=== PATIENT | female | born 1930 | race Caucasian/White ===

== ENCOUNTER 2017-03-16 06:29 | Inpatient (IN) ==
[2017-03-16] MEDS ORDERED: Aspirin 81 MG TAB.CHEW PO ONE (06:38)
--- NOTE | 2017-03-16 06:41 | Emergency Department Note ---
Disposition Clinical Impression: Slurred speech Disposition: Still a Patient Condition: Fair Referrals: NO,PCP [Primary Care Provider] - Time of Disposition: 07:30 Neuro HPI - General Chief Complaint: ED Neuro Symptoms/Deficit Stated Complaint: possible stroke Time Seen by Provider: 03/16/17 06:38 Nursing Notes Reviewed: Yes Vital Signs Reviewed: Yes - History of Present Illness HPI Narrative: Ms. Pierce, an 86-year-old female, presents from home via EMS with concerns of slurred speech and generalized weakness. Patient lives at home with her son. Last known normal was between 10 and 10:30 PM last night. Patient awoke between 5:30 and 6 AM this morning to use the restroom and family was concerned about slurred speech. Patient also concerned about generalized weakness. Concerning history is atrial fibrillation not anticoagulated, antiplatelet of aspirin. Patient is not on anticoagulation as it previously caused her visual hallucinations. During my discussion, patient had slurring of speech without facial asymmetry. She answered all questions appropriately but stated she had difficulty speaking her words with no difficulty finding her words. - Related Data Home Medications: Home Medications Medication Instructions Recorded Confirmed Metoprolol XL (24 HR) Succ [Toprol 50 mg PO DAILY 02/05/16 03/11/17 Xl] Aspirin Enteric Coated [Aspirin EC] 81 mg PO DAILY 03/11/17 03/11/17 amLODIPine [Norvasc] 2.5 mg PO DAILY 03/11/17 03/11/17 Allergies/Adverse Reactions: Allergies Allergy/AdvReac Type Severity Reaction Status Date / Time rivaroxaban [From Xarelto] Allergy Hallucinati Verified 03/11/17 10:09 ng Tetanus Vaccines and Toxoid Allergy Hives Verified 03/11/17 10:09 [Tetanus Vaccines & Toxoid] alprazolam [From Xanax] AdvReac Hallucinati Verified 03/11/17 10:09 ng apixaban [From Eliquis] AdvReac Hallucinati Verified 03/11/17 10:09 ng codeine AdvReac Nausea Verified 03/11/17 10:09 All systems ED: reviewed and negative except as stated. Past Medical History - Past Medical History Medical history: Reports: hypertension, other Surgical history: Reports: breast surgery, herniorrhaphy, GLADIS/BSO, other Psychiatric history: Reports: anxiety, depression - Social History Smoking Status: Never smoker Smokeless Tobacco Status: No Alcohol use: Reports: none Drug use: Reports: none Physical Exam Vital Signs Reviewed General: Patient is alert, oriented, and in no acute distress. HEENT: No facial asymmetry. Head is normocephalic and atraumatic. PERRLA, EOMI. Nasal turbinates moist and pink. Posterior pharynx without exudates or cobblestoning. Trachea midline. Cardiovascular: Heart regular rate and irregular rhythm without clicks, rubs, gallops, or murmurs. No JVD. PMI nondisplaced. No pedal edema. No carotid bruit. Bilateral radial pulses symmetric and 2/4. Respiratory: Symmetric chest rise with good respiratory effort. Bilateral breath sounds are clear without wheezing, crackles, or rhonchi. Abdomen: Bowel sounds present normoactive x-4 quadrants. Abdomen is soft, nondistended, and nontender. No organomegaly noted. Musculoskeletal: Spontaneously moving all extremities. Muscle strength 5/5 and symmetric bilaterally in upper and lower extremities. No pronator drift. No extremity drift in upper or lower extremities. Neuro: Cranial nerves II through XII without deficit. Sensation light touch intact. Patient answers all questions properly. She does have very mild slurring speech. Psych: Patient's affect is appropriate for situation. Course Course Narrative: Patient presents with concerns of TIA versus CVA versus altered mental status. She is alert, oriented, GCS 15. Last known normal is 8-8.5 hours prior to presentation. She is not a TPA candidate. Her only neurologic symptom is mild to moderate slurring of speech. She is otherwise neurologically intact head to toe. NIHSS 1. A workup for altered mentation and stroke. We will not call stroke alert given timeframe of last known normal versus presentation. Patient signed out to the day team: Dr. Caruso, Dr. Dowell, Dr. Valle. Clinical concerns: TIA versus CVA versus altered mentation Pending studies: All lab work, EKG, CT head, chest x-ray Barriers to disposition: All studies are pending. Anticipated disposition: Admit to hospitalist with neurology consult for continued CVA evaluation. Vital Signs Temperature 98.5 F 03/16/17 06:31 Pulse Rate 65 03/16/17 06:31 Respiratory Rate 18 03/16/17 06:31 Blood Pressure 195/85 03/16/17 06:31 O2 Sat by Pulse Oximetry 97 03/16/17 06:31 Temperature 98.5 F 03/16/17 06:31 Pulse Rate 65 03/16/17 06:31 Respiratory Rate 18 03/16/17 06:31 Blood Pressure 195/85 03/16/17 06:31 O2 Sat by Pulse Oximetry 97 03/16/17 06:31 Oxygen Delivery Oxygen Delivery Room Air Neuro Symptoms/Deficit - Lab Data Lab Results 03/16/17 Range/Units 06:31 POC Glucose 116 H (58-89) NIH Stroke Scale - Level of Consciousness LOC: Alert - LOC Questions LOC Questions: Answers both correctly - LOC Commands LOC Commands: Performs both correctly - Best Gaze Best Gaze: Normal - Visual Visual: No visual loss - Facial Palsy Facial Palsy: Normal - Motor Arms Motor Arm-Left: No drift for 10 seconds Motor Arm-Right: No drift for 10 seconds - Motor Legs Motor Leg-Left: No drift for 5 seconds Motor Leg-Right: No drift for 5 seconds - Limb Ataxia Limb Ataxia: Normal, No Ataxia - Sensory Sensory: Normal - Best Language Best Language: No aphasia - Dysarthria Dysarthria: Mild, slurs some words - Extinction and Inattention Extinction and Inattention: Normal - NIHSS Total Score NIHSS Total Score: 1 TPA Checklist - Source Information Source: Patient - Eligibilty for IV tPA 1. LKW equal to or less than 4.5 hours be before treatment: No - LKW: 3-4.5 hrs Add. Warnings/Precautions Patient/family understanding: The patient/family members have been counseled and understood the risk, benefit , and alternatives of treatment. Attestation Statement - Attestation Attestation: I, Mario Villarreal, examined this patient and my medical decision-making was reviewed with the [employer]/PA/Advanced Practice Nurse/Resident Physician. I agree with the documented findings, disposition and treatment plan as described except to the extent set forth below. 86-year-old female presents with concerns of possible CVA. Family states the patient has slurred speech upon waking. Last time nonnormal greater than 8 hours prior to arrival in the emergency department. Patient is moving upper and lower extremities well without significant weakness. Patient is unable to give a history regarding her symptoms. Patient will be evaluated for altered mental status and possible CVA. Care will be transferred to the day physician, Dr. Caruso pending imaging and laboratory evaluation and disposition.
[2017-03-16 07:20] LABS: INR 1.6; Prothrombin Time 17.7 Seconds (9.4-12.1)
[2017-03-16 07:23] LABS: Activated Partial Thrombo Time 35.7 Seconds (26.0-36.0)
--- NOTE | 2017-03-16 07:39 | Emergency Department Note ---
Disposition Clinical Impression: Slurred speech, Troponin level elevated Altered mental status Qualifiers: Altered mental status type: disorientation Qualified Code(s): R41.0 - Disorientation, unspecified Disposition: Admitted As Inpatient Condition: Fair Referrals: NO,PCP [Non-Partnered Physician] - General Adult HPI - General Chief complaint: ED Neuro Symptoms/Deficit Stated complaint: possible stroke Time Seen by Provider: 03/16/17 06:38 Source: patient, EMS Limitations: no limitations Nursing Notes Reviewed: Yes Vital Signs Reviewed: Yes - History of Present Illness Pain Scale: 0 - Related Data Home Medications Medication Instructions Recorded Confirmed Metoprolol XL (24 HR) Succ [Toprol 50 mg PO DAILY 02/05/16 03/11/17 Xl] Aspirin Enteric Coated [Aspirin EC] 81 mg PO DAILY 03/11/17 03/11/17 amLODIPine [Norvasc] 2.5 mg PO DAILY 03/11/17 03/11/17 Allergies Allergy/AdvReac Type Severity Reaction Status Date / Time rivaroxaban [From Xarelto] Allergy Hallucinati Verified 03/11/17 10:09 ng Tetanus Vaccines and Toxoid Allergy Hives Verified 03/11/17 10:09 [Tetanus Vaccines & Toxoid] alprazolam [From Xanax] AdvReac Hallucinati Verified 03/11/17 10:09 ng apixaban [From Eliquis] AdvReac Hallucinati Verified 03/11/17 10:09 ng codeine AdvReac Nausea Verified 03/11/17 10:09 Past Medical History - Past Medical History Medical history: Reports: hypertension, other Surgical history: Reports: breast surgery, herniorrhaphy, GLADIS/BSO, other Psychiatric history: Reports: anxiety, depression - Social History Smoking Status: Never smoker Smokeless Tobacco Status: No Alcohol use: Reports: none Drug use: Reports: none Physical Exam - General Limitations: no limitations General appearance: alert, in no apparent distress Course Vital Signs Temperature 98.5 F 03/16/17 06:31 Pulse Rate 65 03/16/17 06:31 Respiratory Rate 18 03/16/17 06:31 Blood Pressure 195/85 03/16/17 06:31 O2 Sat by Pulse Oximetry 97 03/16/17 06:31 Temperature 98.5 F 03/16/17 06:31 Pulse Rate 65 03/16/17 07:51 Respiratory Rate 16 03/16/17 07:51 Blood Pressure 176/88 03/16/17 07:51 O2 Sat by Pulse Oximetry 95 03/16/17 07:51 Oxygen Delivery Oxygen Delivery Room Air Medical Decision Making - MDM Narrative Medical decision making narrative: I examined this patient and my medical decision-making was reviewed with the [employer]/PA/Advanced Practice Nurse/Resident Physician. I agree with the documented findings, disposition and treatment plan as described except to the extent set forth below. Patient was signed out by the evening ER physician Dr. Villarreal, patient was seen and evaluated this morning by Dr. Dowell and myself, I agree with his evaluation and management plan, supervise care the patient's stay. Patient comes in today having altered mental status upon awaking. Went to bed at 10 AM and felt fine. Uncertain when the symptoms actually started this morning. The family says her speech was slurred, but now is resolved. They think she is back to baseline at this time. 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 Patient has no focal neuro deficits this time. Waiting on lab work and CT scan and then disposition. She most likely will need admission. Chest X-Ray 03/16/17 06:39 IMPRESSION: 1. Interval appearance of mild pulmonary edema. 2. Bibasilar opacities may represent atelectasis versus aspiration. D/ / 03/16/2017 07:53:03 Vangie Han MD / [facility] Interpreting Provider: Vangie Han MD Head CT 03/16/17 06:39 IMPRESSION: No acute intracranial abnormality. D/ / Arvind Call MD / Arvind Call MD Interpreting Provider: Arvind Call MD 0858 hrs.: Patient's labs are back, but had to redraw her for subtle labs as they thought they were to be an air. Her troponin is positive. She has had no chest pain that she is aware of. Her mental status is at baseline. Her negative and bring her into the hospital. She did receive aspirin earlier today. Impressions acute mental status change, resolved, elevated troponin and rule out ACS. Patient's critical care time exclaim separately billable procedures is 30 minutes. 0904 hrs.: Repeat EKG shows atrial fibrillation, rate is 64, QRS is 84, QTC is 427, no signs of acute ischemia, compared to today's EKG and one from earlier this year which shows no acute changes. Patient's having no chest pain at this time. She does admit to having some indigestion over the past couple days. But denies chest pain. - Lab Data Result diagrams: 03/16/17 08:00 03/16/17 08:00 Lab Results 03/16/17 03/16/17 03/16/17 Range/Units 06:31 07:10 07:49 WBC (4.3-11.1) K/mcL RBC (3.82-4.97) M/mcL Hgb (11.5-15.4) g/dL Hct (35.3-44.9) % MCV (83.0-100.0) fL MCH (28.0-33.3) pg MCHC (31.6-35.5) g/dL RDW (11.5-14.5) % Plt Count (140-400) K/mcL MPV (9.4-12.4) fL Immature Gran % (0-4) % Seg Neutrophils % % Lymphocytes % % Monocytes % % Eosinophils % % Basophils % % Neutrophils # (1.6-8.9) K/mcL Lymphocytes # (0.6-4.6) K/mcL Monocytes # (0.0-1.3) K/mcL Eosinophils # (0.0-0.6) K/mcL Basophils # (0.0-0.2) K/mcL PT 17.7 H (9.4-12.1) Seconds INR 1.6 APTT 35.7 (26.0-36.0) Seconds Sodium (136-145) mEq/L Potassium (3.5-4.5) mEq/L Chloride (98-109) mEq/L Carbon Dioxide (19-29) mEq/L BUN (7-20) mg/dL Creatinine (0.57-1.11) mg/dL Est GFR ( Amer) (> 60) Est GFR (Non-Af Amer) (> 60) BUN/Creatinine Ratio (6-26) Glucose (70-99) mg/dL POC Glucose 116 H (58-89) Calculated Osmolality (280-300) Calcium (8.6-10.8) mg/dL Troponin I (0-0.03) ng/mL Urine Color Yellow (Yellow) Urine Clarity Clear (Clear) Urine pH 7.0 (5.0-8.0) pH Units Ur Specific [place] 1.011 (1.010-1.025) Urine Protein 100 H (Neg-Trace) mg/dL Urine Glucose (UA) Normal (Normal) mg/dL Urine Ketones Negative (Negative) mg/dL Urine Blood Large H (Negative) Urine Nitrite Negative (Negative) Urine Bilirubin Negative (Negative) Urine Urobilinogen Normal (Normal) mg/dL Ur Leukocyte Esterase Negative (Negative) Urine Microscopic RBC 50-100 H (0-3) per hpf Urine Microscopic WBC 0-3 (0-3) per hpf Ur Squamous Epith Cells Many H (None-Few) per lpf Urine Bacteria None Seen (None-Few) per hpf Hyaline Casts None Seen (None-Few) per lpf Ur Culture Indicated? NO (NO) 03/16/17 03/16/17 03/16/17 Range/Units 08:00 08:00 08:00 WBC 5.0 (4.3-11.1) K/mcL RBC 5.13 H (3.82-4.97) M/mcL Hgb 14.4 (11.5-15.4) g/dL Hct 43.0 (35.3-44.9) % MCV 83.8 (83.0-100.0) fL MCH 28.1 (28.0-33.3) pg MCHC 33.5 (31.6-35.5) g/dL RDW 13.4 (11.5-14.5) % Plt Count 90 L (140-400) K/mcL MPV 10.7 (9.4-12.4) fL Immature Gran % 0.6 (0-4) % Seg Neutrophils % 69.3 % Lymphocytes % 16.8 % Monocytes % 10.1 % Eosinophils % 2.4 % Basophils % 0.8 % Neutrophils # 3.5 (1.6-8.9) K/mcL Lymphocytes # 0.8 (0.6-4.6) K/mcL Monocytes # 0.5 (0.0-1.3) K/mcL Eosinophils # 0.1 (0.0-0.6) K/mcL Basophils # 0.0 (0.0-0.2) K/mcL PT (9.4-12.1) Seconds INR APTT (26.0-36.0) Seconds Sodium 131 L (136-145) mEq/L Potassium 4.4 (3.5-4.5) mEq/L Chloride 102 (98-109) mEq/L Carbon Dioxide 18 L (19-29) mEq/L BUN 14 (7-20) mg/dL Creatinine 0.68 (0.57-1.11) mg/dL Est GFR ( Amer) > 60 (> 60) Est GFR (Non-Af Amer) > 60 (> 60) BUN/Creatinine Ratio 21 (6-26) Glucose 118 H (70-99) mg/dL POC Glucose (58-89) Calculated Osmolality 274 L (280-300) Calcium 9.0 (8.6-10.8) mg/dL Troponin I 0.18 H* (0-0.03) ng/mL Urine Color (Yellow) Urine Clarity (Clear) Urine pH (5.0-8.0) pH Units Ur Specific [place] (1.010-1.025) Urine Protein (Neg-Trace) mg/dL Urine Glucose (UA) (Normal) mg/dL Urine Ketones (Negative) mg/dL Urine Blood (Negative) Urine Nitrite (Negative) Urine Bilirubin (Negative) Urine Urobilinogen (Normal) mg/dL Ur Leukocyte Esterase (Negative) Urine Microscopic RBC (0-3) per hpf Urine Microscopic WBC (0-3) per hpf Ur Squamous Epith Cells (None-Few) per lpf Urine Bacteria (None-Few) per hpf Hyaline Casts (None-Few) per lpf Ur Culture Indicated? (NO)
--- NOTE | 2017-03-16 07:41 | Emergency Department Note ---
Disposition Clinical Impression: Slurred speech, Troponin level elevated Altered mental status Qualifiers: Altered mental status type: disorientation Qualified Code(s): R41.0 - Disorientation, unspecified Disposition: Admitted As Inpatient Condition: Fair General Adult HPI - General Chief complaint: ED Neuro Symptoms/Deficit Stated complaint: possible stroke Time Seen by Provider: 03/16/17 06:38 Source: patient, EMS Limitations: no limitations Nursing Notes Reviewed: Yes Vital Signs Reviewed: Yes - History of Present Illness HPI Narrative: Patient was signed out to me from daytime physician Dr. Ryan and Dr. Villarreal. 86-year-old female history of atrial fibrillation, hypertension, lymphoma in remission presents to the ED for slurred speech and weakness. Patient lives with her son who reported that around 530 this morning when she awoke in she had difficulty in speech unable to get words out as well as generalized weakness. Her last well-known was last night 0. Daughters also in the room and reports the last time she had similar symptoms was when she was 1st diagnosed with lymphoma. She completed chemoradiation and just recently saw her oncologist Dr. Pittman this past Tuesday. At that time they stated her lab values suggested she may have lymphoma again. She denies any recent fevers, illness, cough, chest pain, shortness of breath, abdominal pain. Denies any recent falls or headache. Patient takes a baby aspirin for atrial fibrillation. Denies anticoagulant use. Denies any changes in her medications. Denies any urinary symptoms. Upon my evaluation her speech has improved in nearly resolved. Families in the room and confirm this. Her neurologic exam is otherwise unremarkable. 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 Her left pupil was round and reactive to light. Her extraocular muscles are intact when asked to look and all 4 cardinal directions. She is not displaying any dysmetria. Pain Scale: 0 - Related Data Home Medications Medication Instructions Recorded Confirmed Metoprolol XL (24 HR) Succ [Toprol 50 mg PO DAILY 02/05/16 03/16/17 Xl] Aspirin Enteric Coated [Aspirin EC] 81 mg PO DAILY 03/11/17 03/16/17 Lisinopril 2.5 mg PO DAILY 03/16/17 03/16/17 Allergies Allergy/AdvReac Type Severity Reaction Status Date / Time rivaroxaban [From Xarelto] Allergy Hallucinati Verified 03/11/17 10:09 ng Tetanus Vaccines and Toxoid Allergy Hives Verified 03/11/17 10:09 [Tetanus Vaccines & Toxoid] alprazolam [From Xanax] AdvReac Hallucinati Verified 03/11/17 10:09 ng apixaban [From Eliquis] AdvReac Hallucinati Verified 03/11/17 10:09 ng codeine AdvReac Nausea Verified 03/11/17 10:09 All systems ED: reviewed and negative except as stated. Constitutional: Reports: weakness. Denies: fever, chills Cardiovascular: Denies: chest pain Respiratory: Denies: cough, dyspnea Gastrointestinal: Denies: abdominal pain, nausea, vomiting Genitourinary: Denies: urgency, dysuria Musculoskeletal: Denies: back pain, neck pain Integumentary: Denies: rash, abrasion Neurological: Reports: weakness. Denies: headache Past Medical History - Past Medical History Attestation: Yes The following information was validated with the patient. Source: patient, obtained from family Medical history: Reports: hypertension, other Surgical history: Reports: breast surgery, herniorrhaphy, GLADIS/BSO, other Psychiatric history: Reports: anxiety, depression - Social History Smoking Status: Never smoker Smokeless Tobacco Status: No Alcohol use: Reports: none Drug use: Reports: none Physical Exam - General Limitations: no limitations General appearance: alert, in no apparent distress - Head Head exam: atraumatic, normocephalic, normal inspection - Eye Eye exam: Present: normal appearance, PERRL, EOMI (Lose in all 4 directions when asked), other (History of right eye blindness due to retinal damage) - Expanded Eye Exam Pupils: Left: regular, round, Right: irregular - ENT ENT exam: normal exam, normal oropharynx, mucous membranes moist - Neck Neck exam: Present: normal inspection, full ROM, trachea midline. Absent: tenderness - Expanded Neck Exam Neck exam focused ED: Absent: midline tenderness - Chest Chest inspection: Present: normal inspection, symmetric chest wall rise. Absent : tenderness - Respiratory Respiratory exam: Present: normal lung sounds bilaterally. Absent: respiratory distress, wheezes - Cardiovascular Cardiovascular exam: Present: normal rhythm, irregular rhythm, normal heart sounds - Abdominal Exam Abdominal exam: Present: soft, Non-Tender, normal bowel sounds. Absent: tenderness, distention, guarding, rebound, rigidity - Extremities Exam Extremities exam: Present: normal inspection, full ROM. Absent: tenderness, pedal edema - Neurological Exam Neurological exam: Present: alert, oriented X3, CN II-XII intact, other (did not perform finger to nose as she is blind in the right eye) - Expanded Neurological Exam Patient oriented to: Present: person, place, time Speech: Present: fluid speech Cranial nerves: EOM function (II, III, IV, ): Normal, facial sensation (V): Normal, facial palsy (VII): Normal, gag reflex (IX): Normal, spinal accessory function (XI): Normal, tongue deviation (XII): Normal Cerebellar function: heel to coleman: Normal Motor strength - LUE: 5/5 Motor strength - RUE: 5/5 Motor strength - LLE: 5/5 Motor strength - RLE: 5/5 Upper motor neuron exam: genevieve neglect: Absent bilaterally, pronator drift: Absent bilaterally Sensory exam upper extremity: light touch: Normal Sensory exam lower extremity: light touch: Normal - Psychiatric Psychiatric exam: Present: normal affect, normal mood - Skin Skin exam: Present: warm, dry, intact, normal color Course Course Narrative: These 6-year-old female presents for slurred speech and weakness. Initial concern was for possible stroke also being worked out for altered mental status. Patient is afebrile. Her blood pressure is elevated systolic 195. She has not taken her blood pressure medication this morning. She is denying any chest pain or shortness of breath at this time. Upon my evaluation patient / slurred speech has resolved as well as any weakness. Neurologic exam is unremarkable with no focal neural deficits. Family reports concern for recurrent lymphoma. EKG was performed showing atrial fibrillation with the slow ventricular response no acute ischemic changes. - Reevaluation(s) Reevaluation #1: Critical troponin 0.18. Patient denies chest pain. She reports indigestion and nausea over the past week. Patient was given 324 aspirin at 0659. Will get a repeat EKG. Patient will be admitted for elevated troponin and altered mental status. She does not have any underlying kidney disease. Creatinine is within normal limits 0.68. Time: 09:01 Reevaluation #2: Sodium is 131. It appears she has chronic hyponatremia and she has been as low as 126. White blood cell count is within normal limits. Urine does not appear consistent with infection. Review for checks x-ray shows bilateral patchy opacities concern for possible pulmonary edema. She continues to be mildly hypertensive. Will give her her home dose of antihypertensives as she has not taken any this morning. She has passed her swallow evaluation. Repeat of her EKG does not show any acute ischemic changes. Patient will be admitted to medicine for altered mental status and elevated troponin. Patient is in agreement with this plan. Time: 09:52 Reevaluation #3: BP 164/80 - Consultations Consultation #1: Spoke with on-call hospitalist mariia Infante to admit for AMS, elevated troponin. No further orders at this time Time: 09:51 Vital Signs Temperature 98.5 F 03/16/17 06:31 Pulse Rate 65 03/16/17 06:31 Respiratory Rate 18 03/16/17 06:31 Blood Pressure 195/85 03/16/17 06:31 O2 Sat by Pulse Oximetry 97 03/16/17 06:31 Temperature 97.5 F L 03/16/17 12:04 Pulse Rate 62 03/16/17 12:04 Respiratory Rate 14 03/16/17 12:04 Blood Pressure 164/80 03/16/17 12:04 O2 Sat by Pulse Oximetry 99 03/16/17 12:04 Oxygen Delivery Oxygen Delivery Nasal Cannula Medical Decision Making - Medical Records Medical records reviewed: Yes I reviewed the patient's medical records. - Lab Data Lab results reviewed: Yes I reviewed the patient's lab results. Result diagrams: 03/16/17 08:00 03/16/17 08:00 Lab Results 03/16/17 03/16/17 03/16/17 Range/Units 06:31 07:10 07:49 WBC (4.3-11.1) K/mcL RBC (3.82-4.97) M/mcL Hgb (11.5-15.4) g/dL Hct (35.3-44.9) % MCV (83.0-100.0) fL MCH (28.0-33.3) pg MCHC (31.6-35.5) g/dL RDW (11.5-14.5) % Plt Count (140-400) K/mcL MPV (9.4-12.4) fL Immature Gran % (0-4) % Seg Neutrophils % % Lymphocytes % % Monocytes % % Eosinophils % % Basophils % % Neutrophils # (1.6-8.9) K/mcL Lymphocytes # (0.6-4.6) K/mcL Monocytes # (0.0-1.3) K/mcL Eosinophils # (0.0-0.6) K/mcL Basophils # (0.0-0.2) K/mcL PT 17.7 H (9.4-12.1) Seconds INR 1.6 APTT 35.7 (26.0-36.0) Seconds Sodium (136-145) mEq/L Potassium (3.5-4.5) mEq/L Chloride (98-109) mEq/L Carbon Dioxide (19-29) mEq/L BUN (7-20) mg/dL Creatinine (0.57-1.11) mg/dL Est GFR ( Amer) (> 60) Est GFR (Non-Af Amer) (> 60) BUN/Creatinine Ratio (6-26) Glucose (70-99) mg/dL POC Glucose 116 H (58-89) Calculated Osmolality (280-300) Calcium (8.6-10.8) mg/dL Troponin I (0-0.03) ng/mL Urine Color Yellow (Yellow) Urine Clarity Clear (Clear) Urine pH 7.0 (5.0-8.0) pH Units Ur Specific Buhler 1.011 (1.010-1.025) Urine Protein 100 H (Neg-Trace) mg/dL Urine Glucose (UA) Normal (Normal) mg/dL Urine Ketones Negative (Negative) mg/dL Urine Blood Large H (Negative) Urine Nitrite Negative (Negative) Urine Bilirubin Negative (Negative) Urine Urobilinogen Normal (Normal) mg/dL Ur Leukocyte Esterase Negative (Negative) Urine Microscopic RBC 50-100 H (0-3) per hpf Urine Microscopic WBC 0-3 (0-3) per hpf Ur Squamous Epith Cells Many H (None-Few) per lpf Urine Bacteria None Seen (None-Few) per hpf Hyaline Casts None Seen (None-Few) per lpf Ur Culture Indicated? NO (NO) 03/16/17 03/16/17 03/16/17 Range/Units 08:00 08:00 08:00 WBC 5.0 (4.3-11.1) K/mcL RBC 5.13 H (3.82-4.97) M/mcL Hgb 14.4 (11.5-15.4) g/dL Hct 43.0 (35.3-44.9) % MCV 83.8 (83.0-100.0) fL MCH 28.1 (28.0-33.3) pg MCHC 33.5 (31.6-35.5) g/dL RDW 13.4 (11.5-14.5) % Plt Count 90 L (140-400) K/mcL MPV 10.7 (9.4-12.4) fL Immature Gran % 0.6 (0-4) % Seg Neutrophils % 69.3 % Lymphocytes % 16.8 % Monocytes % 10.1 % Eosinophils % 2.4 % Basophils % 0.8 % Neutrophils # 3.5 (1.6-8.9) K/mcL Lymphocytes # 0.8 (0.6-4.6) K/mcL Monocytes # 0.5 (0.0-1.3) K/mcL Eosinophils # 0.1 (0.0-0.6) K/mcL Basophils # 0.0 (0.0-0.2) K/mcL PT (9.4-12.1) Seconds INR APTT (26.0-36.0) Seconds Sodium 131 L (136-145) mEq/L Potassium 4.4 (3.5-4.5) mEq/L Chloride 102 (98-109) mEq/L Carbon Dioxide 18 L (19-29) mEq/L BUN 14 (7-20) mg/dL Creatinine 0.68 (0.57-1.11) mg/dL Est GFR ( Amer) > 60 (> 60) Est GFR (Non-Af Amer) > 60 (> 60) BUN/Creatinine Ratio 21 (6-26) Glucose 118 H (70-99) mg/dL POC Glucose (58-89) Calculated Osmolality 274 L (280-300) Calcium 9.0 (8.6-10.8) mg/dL Troponin I 0.18 H* (0-0.03) ng/mL Urine Color (Yellow) Urine Clarity (Clear) Urine pH (5.0-8.0) pH Units Ur Specific Buhler (1.010-1.025) Urine Protein (Neg-Trace) mg/dL Urine Glucose (UA) (Normal) mg/dL Urine Ketones (Negative) mg/dL Urine Blood (Negative) Urine Nitrite (Negative) Urine Bilirubin (Negative) Urine Urobilinogen (Normal) mg/dL Ur Leukocyte Esterase (Negative) Urine Microscopic RBC (0-3) per hpf Urine Microscopic WBC (0-3) per hpf Ur Squamous Epith Cells (None-Few) per lpf Urine Bacteria (None-Few) per hpf Hyaline Casts (None-Few) per lpf Ur Culture Indicated? (NO) - Radiology Data Radiology results reviewed: Yes I reviewed the patient's radiology results. Chest X-Ray 03/16/17 06:39 IMPRESSION: 1. Interval appearance of mild pulmonary edema. 2. Bibasilar opacities may represent atelectasis versus aspiration. D/ / 03/16/2017 07:53:03 Vangie Han MD / [facility] Interpreting Provider: Vangie Han MD Head CT 03/16/17 06:39 IMPRESSION: No acute intracranial abnormality. D/ / Arvind Call MD / Arvind Call MD Interpreting Provider: Arvind Call MD - EKG Data EKG #1 EKG attestation: Yes I reviewed and interpreted this EKG. EKG results narrative: EKG performed 637 atrial fibrillation with slow ventricular response 55 bpm QRS 78. Compared to old EKG performed 01/07/2017 reveals chronic atrial fibrillation. No acute ischemic changes.
[2017-03-16 08:05] LABS: Bilirubin,Urine Negative (Negative); Blood,Urine Large (Negative); Clarity,Urine Clear (Clear); Color,Urine Yellow (Yellow); Glucose,Urine (UA) Normal (Normal); Ketones,Urine Negative (Negative); Leukocyte Esterase,Urine Negative (Negative); Nitrite,Urine Negative (Negative); Protein,Urine 100 mg/dL (Neg-Trace); Specific Gravity,Urine 1.011 (1.010-1.025); Urobilinogen,Urine Normal (Normal)
[2017-03-16 08:06] LABS: Bacteria,Urine None Seen per hpf (None-Few); Hyaline Casts,Urine None Seen per lpf (None-Few); RBC,Urine 50-100 per hpf (0-3); Squamous Epithelial Cell,Urine Many per lpf (None-Few); WBC,Urine 0-3 per hpf (0-3)
[2017-03-16 08:32] LABS: Basophils % 0.8 %; Eosinophils # 0.1 K/mcL (0.0-0.6); Eosinophils % 2.4 %; Immature Granulocytes % 0.6 % (0-4); Lymphocytes # 0.8 K/mcL (0.6-4.6); Lymphocytes % 16.8 %; Mean Corpuscular HGB Conc 33.5 g/dL (31.6-35.5); Mean Corpuscular Hemoglobin 28.1 pg (28.0-33.3); Mean Corpuscular Volume 83.8 fL (83.0-100.0); Mean Platelet Volume 10.7 fL (9.4-12.4); Monocytes # 0.5 K/mcL (0.0-1.3); Monocytes % 10.1 %; Red Blood Count 5.13 M/mcL (3.82-4.97); Red Cell Distribution Width 13.4 % (11.5-14.5); Segmented Neutrophils % 69.3 %
[2017-03-16 08:33] LABS: Hemoglobin 14.4 g/dL (11.5-15.4); Neutrophils # 3.5 K/mcL (1.6-8.9); Platelet Count 90 K/mcL (140-400)
[2017-03-16 08:38] LABS: BUN/Creatinine Ratio 21 (6-26); Blood Urea Nitrogen 14 mg/dL (7-20); Carbon Dioxide 18 mEq/L (19-29); Chloride 102 mEq/L (98-109); Glucose 118 mg/dL (70-99); Osmolality,Calculated 274 (280-300); Potassium 4.4 mEq/L (3.5-4.5); Sodium 131 mEq/L (136-145); eGFR For African Americans > 60 (> 60); eGFR For Non-African Americans > 60 (> 60)
[2017-03-16] MEDS ORDERED: *HR* Heparin 5,000 UNIT/ML VIAL IVP ONE ×2 (11:19→12:25)
[2017-03-16] MEDS ORDERED: *HR* Heparin 5,000 UNIT/ML VIAL IVP PRN ×4 (11:19→12:25)
[2017-03-16] MEDS ORDERED: Naloxone 0.4 MG/ML INJ IVP PRN (11:24)
[2017-03-16] MEDS ORDERED: Acetaminophen 325 MG TABLET PO PRN (11:24)
[2017-03-16] MEDS ORDERED: Heparin 25,000 UNIT/500 ML D5W 25,000 UNIT/500 ML MLS IVC SCH ×2 (11:30→12:30)
--- NOTE | 2017-03-16 11:36 | Internal Med History&Physical ---
<Wilfrido Mcintosh Contreras - Last Filed: 03/16/17 13:03> Date of Encounter: 03/16/17 Internal Medicine - H&P: HPI History of present illness: Ms. Pierce is a 86 year old female Internal Medicine - H&P: Meds Metoprolol XL (24 HR) Succ [Toprol Xl] 50 mg PO DAILY 02/05/16 [History] Aspirin Enteric Coated [Aspirin EC] 81 mg PO DAILY 03/11/17 [History] Lisinopril 2.5 mg PO DAILY 03/16/17 [History] Allergies rivaroxaban [From Xarelto] Allergy (Verified 03/11/17 10:09) Hallucinating Tetanus Vaccines and Toxoid [Tetanus Vaccines & Toxoid] Allergy (Verified 10:09) Hives alprazolam [From Xanax] Adverse Reaction (Verified 03/11/17 10:09) Hallucinating apixaban [From Eliquis] Adverse Reaction (Verified 03/11/17 10:09) Hallucinating codeine Adverse Reaction (Verified 03/11/17 10:09) Nausea All Systems PM: A 10-system review of systems was performed and is negative for pertinent findings except as documented above in the HPI. - Constitutional Vitals: Temp Pulse Resp BP Pulse Ox 97.5 F L 62 14 164/80 99 03/16/17 12:04 03/16/17 12:04 03/16/17 12:04 03/16/17 12:04 03/16/17 12:04 Internal Med - H&P Results - Labs CBC & Chem 7: 03/16/17 08:00 03/16/17 08:00 - Attending Attestation I have independently seen and examined this patient and discussed plan of care with SOFTWARE QUALITY ASSURANCE ENGINEER Akshat 86 F, resident at home, with PMH of Afib, HTN, remote hx of B cell lymphoma in remission, was last seen well last night and this morning found with altered mental status, confusion, slurred speech. At time of review, family states her speech has not yet returned to normal. She also endorsed indigestion for a few days and nausea. No CP, no palpitations, no focal weakness, no trauma, no change in urinary habits. Physical exam VSS, Elderly fragile woman, not in any form of distress, chest is clear, HS S1, S2, only, no m/g/r, abdomen is benign, no pedal edema, no chest wall tenderness. Neuro exam, alert, oriented X3, dysarthric, R eye blind, no facial droop, moves all limbs equally Labs and imaging reviewed: EKG with Afib, RBBB, CXR unremarkable, and Head CT with no infarcts. Troponin 0.18, normal Chem, no hx of renal disease A/P Elevated troponin, suspected NSTEMI-Start heparin drip, obtain ECHO, trend troponin, continue ASA, BB, ACEi at home doses. Elevated troponin may be due to CVA, cardiology has been consulted, agree with plan Suspected Ischemic CVA-Obtain Brain MRI, agree with neurology eval Afib: CHADScore 4. Continue ASA, follow ECHO, and continue heparin Rest of chronic medical conditions are stable. Family is worried about recurrence of Lymphoma, recommend to address after current acute issues resolve Rest of details as in SOFTWARE QUALITY ASSURANCE ENGINEER [employer] documentation which I agree with <Aisha Oden - Last Filed: 03/16/17 22:11> Date of Encounter: 03/16/17 Time of Encounter: 11:34 Assessment and Plan (1) CVA (cerebral vascular accident) Current visit: Yes Status: Acute Patient presented with right sided weakness and numbness and slurred speech. Right sided weakness resolved and speech has improved, but not back to baseline per family. Suspect CVA vs. TIA. CT of head negative for acute abnormality. MRI of head and brain without contrast. carotid dopplers echocardiogram Consult to Neurology. Lipid panel with morning labs start atorvastatin. Qualifiers: CVA mechanism: embolism Precerebral and cerebral artery: middle cerebral artery Laterality of affected vessel: left Qualified Code(s): I63.412 - Cerebral infarction due to embolism of left middle cerebral artery (2) Slurred speech Current visit: Yes Status: Acute Patient presented with right sided weakness and numbness and slurred speech. Right sided weakness resolved and speech has improved, but not back to baseline per family. Suspect CVA vs. TIA. CT of head negative for acute abnormality. MRI of head and brain without contrast. carotid dopplers echocardiogram Consult to Neurology. (3) Troponin level elevated Current visit: Yes Status: Acute Troponin of 0.18. Patient denies chest pain or shortness of breath, but reports nausea and indigestion over the past week. Suspected NSTEMI. EKG shows afib with normal rate, no ST elevations or depressions. 324mg of aspirin given by ED. Cardiology consulted, Dr. Palmer said elevated troponin is possible in CVA/TIA and to hold off on heparin until we speak with Neurology. Spoke with Dr. Nance of Neurology, who said no contraindication to heparin if the CT of the head does not show a bleed. heparin drip. 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 Patient's family is concerned that her lymphoma has returned as this is similar to what happened the last time she was diagnosed. Patient had recent visit with her oncologist, Dr. Pittman, on 03/11 and due to elevated LDH and her symptoms of nausea at the time, ordered a CT of chest, abdomen and pelvis with IV and oral contrast to be completed this week. Consider completing this study while patient is inpatient once neuro and cardiology issues are stabilized. Qualifiers: Lymphoma site: multiple regions Qualified Code(s): C83.38 - Diffuse large B -cell lymphoma, lymph nodes of multiple sites (5) Atrial fibrillation Current visit: Yes Status: Chronic Patient has chronic atrial fibrillation. EKG shows Afib with normal rate. Patient takes metoprolol for rate control and aspirin, not on any anti- coagulation. Continue home doses of metoprolol and aspirin. Qualifiers: Atrial fibrillation type: chronic Qualified Code(s): I48.2 - Chronic atrial fibrillation (6) Pulmonary edema Current visit: Yes Status: Acute CXR shows interval appearance of mild pulmonary edema and bibasilar opacities which may represent atelectasis vs. aspiration. Patient denies cough, fever, shortness of breath. Titrate oxygen to maintain O2 saturation > 92%. Qualifiers: Chronicity: acute Qualified Code(s): J81.0 - Acute pulmonary edema (7) DVT prophylaxis Current visit: Yes Status: Acute anti-embolic stockings patient on heparin drip for suspected NSTEMI. Internal Medicine - H&P: HPI Chief complaint: right sided numbness and slurred speech Admitted From: Emergency Dept Plans for Post Hospital Care: Home History of present illness: Ms. Pierce is a 86 year old female with hypertension, atrial fibrillation, history large B-cell lymphoma in remission presents to the emergency room today with complaints of right-sided numbness and weakness and slurred speech. When patient woke this morning she reports her right arm felt numb her son said he had trouble getting her to walk and she was unable to speak, unable to get words out. She reports she was experiencing some nausea and indigestion as well as chills all last week, but had been feeling better the last few days. She denies any lightheadedness, dizziness, headache, chest pain, palpitations, shortness of breath. She denies any abdominal pain, diarrhea, fever, sweats. Evaluation in the ED was significant for elevated troponin of 0.18. CXR showed interval appearance of mild pulmonary edema and bibasilar opacities which may represent atelectasis versus aspiration. Head CT showed no acute intracranial abnormality. She has normal kidney function with creatinine of 0.68. She was mildly hyponatremic with sodium of 131. At the time of my assessment, her left sided weakness and numbness had resolved and her speech and nearly fully recovered, but according to her family did not sound as fluid as her baseline. She was alert and oriented, heart had irregular rhythm. Lungs with fine crackles in the bases. Patient is blind in right eye and pupil is non-reactive , but this is baseline. Cranial nerves intact, no pronator drift. Past Med Surg Social Fam HX - Past Medical History Medical history: atrial fibrillation, cancer (Large B-cell lymphoma, in remission), DVT, hypertension, other Psychiatric history: anxiety, depression - Past Surgical History Surgical History: breast surgery, herniorrhaphy, GLADIS/BSO, other - Social History Smoking Status: Never smoker Smokeless Tobacco Status: No Alcohol use: none Drug use: none - Family History Mother Hx Family Cardiac Disorders: Yes (pacemaker) Sister Hx Family Endocrine Disorder: Yes (diabetes) Brother Living Status: Hx Family Cardiac Disorders: Yes Father Living Status: Age at : 85 Cause of : CVA All Systems PM: A 10-system review of systems was performed and is negative for pertinent findings except as documented above in the HPI. - Constitutional Constitutional: chills, no fever(s), no night sweats - EENT Eyes: no change in vision, no discharge, no pain, no photophobia Ears: no ear discharge, no ear pain, no tinnitus Nose, mouth and throat: no dysphagia, no nasal discharge, no neck pain, no sore throat - Cardiovascular Cardiovascular ROS IM: no chest pain, no diaphoresis, no dyspnea, no lightheadedness, no palpitations, no syncope - Respiratory Respiratory: no cough, no dyspnea, no wheezing, no excessive phlegm production - Gastrointestinal Gastrointestinal: nausea, no abdominal pain, no diarrhea, no hematemesis, no hematochezia, no melena, no vomiting - Genitourinary Genitourinary: no change in urinary stream, no dysuria, no flank pain, no hematuria - Musculoskeletal Musculoskeletal ROS IM: numbness, no tingling - Integumentary Integumentary IM: no rash, no unusual bruising - Neurological Neurological ROS: abnormal speech, focal weakness (right side), numbness (right side), no confusion, no convulsions, no tingling, no tremor(s) - Hematologic/Lymphatic Hematologic/Lymphatic: no easy bruising - Constitutional Vitals: Temp Pulse Resp BP Pulse Ox 98.5 F 63 18 168/92 95 03/16/17 06:31 03/16/17 09:16 03/16/17 11:08 03/16/17 11:08 03/16/17 07:51 General appearance: Present: A&O X 3, pleasant, no acute distress - Head Head exam: Present: atraumatic, normocephalic - Eye Eye exam: Present: conjuntiva pink, sclera anicteric Additional comments: left pupil reactive. Right eye blindness and pupil not reactive. - Neck Neck exam general surgery: Present: supple, trachea midline. Absent: lymphadenopathy - Respiratory Respiratory exam: Present: CTAB. Absent: accessory muscle use, rales, rhonchi, wheezes - Cardiovascular Cardiovascular exam: Present: irregular rhythm, +S1, +S2. Absent: diastolic murmur, gallop, rubs, systolic murmur - GI/Abdominal GI/Abdominal exam: Present: normal bowel sounds, soft, no peritoneal signs. Absent: distended, tenderness - Extremities Exam Extremities exam: Present: warm, radial pulses palpable and symetrical. Absent : calf tenderness, cyanotic, pedal edema - Neurological Exam Neurological exam: Present: CN II-XII intact, oriented X3, no focal deficits, strengths equal and symetr throughout. Absent: pronater drift, facial droop - Expanded Neurological Exam Speech: Present: slurred (mildly slurred) Cranial Nerves: EOM's intact PM: Normal, nystagmus PM: Normal, tongue deviation PM: Normal Neuro motor strength exam: LUE: 4, RUE: 4, LLE: 4, RLE: 4 - Skin Skin exam: Present: dry, intact Internal Med - H&P Results - Labs CBC & Chem 7: 03/16/17 08:00 03/16/17 08:00 Labs: All Lab Results (24 Hours) 03/16/17 03/16/17 03/16/17 Range/Units 06:31 07:10 07:49 WBC (4.3-11.1) K/mcL RBC (3.82-4.97) M/mcL Hgb (11.5-15.4) g/dL Hct (35.3-44.9) % MCV (83.0-100.0) fL MCH (28.0-33.3) pg MCHC (31.6-35.5) g/dL RDW (11.5-14.5) % Plt Count (140-400) K/mcL MPV (9.4-12.4) fL Immature Gran % (0-4) % Seg Neutrophils % % Lymphocytes % % Monocytes % % Eosinophils % % Basophils % % Neutrophils # (1.6-8.9) K/mcL Lymphocytes # (0.6-4.6) K/mcL Monocytes # (0.0-1.3) K/mcL Eosinophils # (0.0-0.6) K/mcL Basophils # (0.0-0.2) K/mcL PT 17.7 H (9.4-12.1) Seconds INR 1.6 APTT 35.7 (26.0-36.0) Seconds Sodium (136-145) mEq/L Potassium (3.5-4.5) mEq/L Chloride (98-109) mEq/L Carbon Dioxide (19-29) mEq/L BUN (7-20) mg/dL Creatinine (0.57-1.11) mg/dL Est GFR ( Amer) (> 60) Est GFR (Non-Af Amer) (> 60) BUN/Creatinine Ratio (6-26) Glucose (70-99) mg/dL POC Glucose 116 H (58-89) Calculated Osmolality (280-300) Calcium (8.6-10.8) mg/dL Troponin I (0-0.03) ng/mL Urine Color Yellow (Yellow) Urine Clarity Clear (Clear) Urine pH 7.0 (5.0-8.0) pH Units Ur Specific [place] 1.011 (1.010-1.025) Urine Protein 100 H (Neg-Trace) mg/dL Urine Glucose (UA) Normal (Normal) mg/dL Urine Ketones Negative (Negative) mg/dL Urine Blood Large H (Negative) Urine Nitrite Negative (Negative) Urine Bilirubin Negative (Negative) Urine Urobilinogen Normal (Normal) mg/dL Ur Leukocyte Esterase Negative (Negative) Urine Microscopic RBC 50-100 H (0-3) per hpf Urine Microscopic WBC 0-3 (0-3) per hpf Ur Squamous Epith Cells Many H (None-Few) per lpf Urine Bacteria None Seen (None-Few) per hpf Hyaline Casts None Seen (None-Few) per lpf Ur Culture Indicated? NO (NO) 03/16/17 03/16/17 03/16/17 Range/Units 08:00 08:00 08:00 WBC 5.0 (4.3-11.1) K/mcL RBC 5.13 H (3.82-4.97) M/mcL Hgb 14.4 (11.5-15.4) g/dL Hct 43.0 (35.3-44.9) % MCV 83.8 (83.0-100.0) fL MCH 28.1 (28.0-33.3) pg MCHC 33.5 (31.6-35.5) g/dL RDW 13.4 (11.5-14.5) % Plt Count 90 L (140-400) K/mcL MPV 10.7 (9.4-12.4) fL Immature Gran % 0.6 (0-4) % Seg Neutrophils % 69.3 % Lymphocytes % 16.8 % Monocytes % 10.1 % Eosinophils % 2.4 % Basophils % 0.8 % Neutrophils # 3.5 (1.6-8.9) K/mcL Lymphocytes # 0.8 (0.6-4.6) K/mcL Monocytes # 0.5 (0.0-1.3) K/mcL Eosinophils # 0.1 (0.0-0.6) K/mcL Basophils # 0.0 (0.0-0.2) K/mcL PT (9.4-12.1) Seconds INR APTT (26.0-36.0) Seconds Sodium 131 L (136-145) mEq/L Potassium 4.4 (3.5-4.5) mEq/L Chloride 102 (98-109) mEq/L Carbon Dioxide 18 L (19-29) mEq/L BUN 14 (7-20) mg/dL Creatinine 0.68 (0.57-1.11) mg/dL Est GFR ( Amer) > 60 (> 60) Est GFR (Non-Af Amer) > 60 (> 60) BUN/Creatinine Ratio 21 (6-26) Glucose 118 H (70-99) mg/dL POC Glucose (58-89) Calculated Osmolality 274 L (280-300) Calcium 9.0 (8.6-10.8) mg/dL Troponin I 0.18 H* (0-0.03) ng/mL Urine Color (Yellow) Urine Clarity (Clear) Urine pH (5.0-8.0) pH Units Ur Specific [place] (1.010-1.025) Urine Protein (Neg-Trace) mg/dL Urine Glucose (UA) (Normal) mg/dL Urine Ketones (Negative) mg/dL Urine Blood (Negative) Urine Nitrite (Negative) Urine Bilirubin (Negative) Urine Urobilinogen (Normal) mg/dL Ur Leukocyte Esterase (Negative) Urine Microscopic RBC (0-3) per hpf Urine Microscopic WBC (0-3) per hpf Ur Squamous Epith Cells (None-Few) per lpf Urine Bacteria (None-Few) per hpf Hyaline Casts (None-Few) per lpf Ur Culture Indicated? (NO) - Diagnostic Studies Chest x-ray Additional comments: Chest X-Ray 03/16/17 06:39 IMPRESSION: 1. Interval appearance of mild pulmonary edema. 2. Bibasilar opacities may represent atelectasis versus aspiration. D/ / 03/16/2017 07:53:03 Vangie Han MD / sha Interpreting Provider: Vangie Han MD CT scan - head Additional comments: Head CT 03/16/17 06:39 IMPRESSION: No acute intracranial abnormality. D/ / Arvind Call MD / Arvind Call MD Interpreting Provider: Arvind Call MD
--- NOTE | 2017-03-16 12:57 | Cardiology Consult Note ---
Date of Encounter: 03/16/17 Time of Encounter: 12:30 Assessment and Plan (1) Altered mental status Current Visit: Yes Status: Acute Symptoms consistent for TIA/CVA; concerning given hx of afib not on anticoagulation. Troponin 0.18, no ischemic ECG changes noted; this is likely demand ischemia in the setting of possible CVA and severely elevated BP. Chest pain free. Weakness, slurred speech have improved, not yet at baseline per family and patient report. Head CT negative, brain MRI pending. Neurology consulted--will defer further mgmt to neurology/primary service. Qualifiers: Altered mental status type: disorientation Qualified Code(s): R41.0 - Disorientation, unspecified (2) Atrial fibrillation Current Visit: Yes Status: Chronic Reports diagnosis nearly [address] Ortiz. Currently rate controlled on Toprol XL. Min HR=37 afib noted since admission-- will decrease Toprol to 25 mg daily. Family reports recent increase in dose. States was placed on anticoagulation for acute LLE DVT in September; was started on Xarelto but experienced visual hallucinations, once she stopped the medication hallucinations stopped; she was then started on Eliquis and hallucinations returned, patient was instructed to then stop medication. CHA2Ds Vasc= 6 (female, age, HTN, TIA/CVA). Recommend full anticoagulation, given adverse reaction with NOAC's recommend coumadin. Start when okay by Neurology. Recommend heparin to coumadin bridge with goal INR 2-3. Recommend referral to [facility] prior to discharge. Qualifiers: Atrial fibrillation type: chronic Qualified Code(s): I48.2 - Chronic atrial fibrillation (3) Hypertension Current Visit: Yes Status: Chronic Has been poorly controlled in the outpatient setting. Recommend conservative treatment of blood pressure, will defer medication titration to primary service and Neurology. Recommend increasing ACEi as needed. Qualifiers: Hypertension type: essential hypertension Qualified Code(s): I10 - Essential (primary) hypertension Discussion w patient/family: The assessment and plan as outlined above was discussed with the patient and/or family members who expressed understanding and agreement. All questions were answered. Thank you for involving us in the care of your patient. Please call with any questions. The patient will be discussed and reviewed with Dr. Palmer; changes to be made accordingly. History of Present Illness Consult date: 03/16/17 Requesting physician: Aisha Oden Consult reason: Elevated troponin Chief complaint: CVA symptoms History of present illness: Ms. Pierce is a 86 year old female with PMHx significant for HTN, afib, LLE DVT (resolved per duplex 10/2016), and b-cell lymphoma who presents to the ED with 3 week history of uncontrolled blood pressure, intermittent right arm and facial tingling. Son and patient report this morning symptoms worsened--she was unable to walk, right arm was weak, had vision changes, and slurred speech. Per family, speech has improved but not yet at baseline. She has been seen by PCP several times of the past month for uncontrolled blood pressure. Family is concerned with relapse of Lymphoma--states similar symptoms to prior relapse; was seen by Oncology last week and due to increasing LDH levels, abdominal pain , and nausea repeat CT abd/pelvis ordered. Upon arrival to ED, initial troponin 0.18, no ischemic ECG changes noted--afib rate 60s. Head CT negative for acute findings. Brain MRI pending. Prior CV testing: TTE 11/01/16: LVEF 50%, normal RV structure and function, mild to moderately dilated LA, mild AR/MR/TR, normal wall motion TTE 03/12/17: LVEF 55%, moderate AR, mild-moderate TR, normal wall motion Past Med Surg Social Fam HX - Past Medical History Attestation: Yes The following information was validated with the patient. Source: patient, old records reviewed Medical history: atrial fibrillation, cancer (Large B-cell lymphoma, in remission), DVT, hypertension Psychiatric history: anxiety, depression - Past Surgical History Surgical History: breast surgery, herniorrhaphy, GLADIS/BSO - Social History Smoking Status: Never smoker Smokeless Tobacco Status: No Alcohol use: none Drug use: none - Family History Brother Living Status: Hx Family Cardiac Disorders: Yes Father Living Status: Age at : 85 Cause of : CVA Mother Hx Family Cardiac Disorders: Yes (pacemaker) Sister Hx Family Endocrine Disorder: Yes (diabetes) Medications and Allergies Metoprolol XL (24 HR) Succ [Toprol Xl] 50 mg PO DAILY 02/05/16 [History] Aspirin Enteric Coated [Aspirin EC] 81 mg PO DAILY 03/11/17 [History] Lisinopril 2.5 mg PO DAILY 03/16/17 [History] Allergies rivaroxaban [From Xarelto] Allergy (Verified 03/11/17 10:09) Hallucinating Tetanus Vaccines and Toxoid [Tetanus Vaccines & Toxoid] Allergy (Verified 10:09) Hives alprazolam [From Xanax] Adverse Reaction (Verified 03/11/17 10:09) Hallucinating apixaban [From Eliquis] Adverse Reaction (Verified 03/11/17 10:09) Hallucinating codeine Adverse Reaction (Verified 03/11/17 10:09) Nausea All Systems Review: A 10-system review of systems was performed and is negative for pertinent findings except as documented above in the HPI. - Cardiovascular Cardiovascular: as per HPI Physical Examination General: Conversant HEENT: Atraumatic, Normocephaly Cardiac: Other (irregularly irregular) Lungs: Normal Breath Sounds Neuro: Alert and responsive Abdomen: Soft, Other (lower abdominal tenderness) Skin: No rashes noted on visualized skin Musculoskeletal: No Chest Wall Tenderness Extremities: No Edema, Normal Pulses Results 03/16/17 08:00 03/16/17 08:00 - Imaging and Cardiology Echo: report reviewed Other Results: Tele: avg HR=64 afib, min=36. - EKG Interpretation EKG results cardiology: personally reviewed Consult Discharge Plan - Plan Referrals: Sommer Bettencourt, INS[facility] [Primary Care Provider] -
--- NOTE | 2017-03-16 15:23 | Neurology - Consult Note ---
Date of Encounter: 03/16/17 Time of Encounter: 15:12 Assessment and Plan (1) CVA (cerebral vascular accident) Current Visit: Yes Status: Acute This is an elderly patient with chronic atrial fibrillation currently not on anticoagulation who developed acuter onset of speech difficulty lasting few hours in duration without focal neurological deficits. Due to her comorbidities , major concern is TIA/small embolic stroke. CT of head showed no acute hemorrhage therefore will agree starting her on coumadin with heparin bridge. There is no active bleeding and there is no prior history of known significant hemorrhage. Agree with stroke work up including MRI of brain, echocardiography and carotid artery duplex. Please continue medical and supportive care Addendum: MRI of brain reviewed and showed acute cerebral infarct involving the left anterior MCA branch. This pattern suggests embolic etiology, likely related to atrial fibrillation. Agree with anticoagulation therapy with heparin bridge. Size of stroke is small and will not be considered contraindication for anticoagulation therapy Qualifiers: CVA mechanism: embolism Precerebral and cerebral artery: middle cerebral artery Laterality of affected vessel: left Qualified Code(s): I63.412 - Cerebral infarction due to embolism of left middle cerebral artery History of Present Illness Chief complaint: slurred speech HPI: Ms. Pierce is a 86 year old female with PMH significant for chronic atrial fibrillation, non-Hodgkin lymphoma who presented with acute onset of slurred speech and possible stroke. This occurred this AM and the patient suddenly developed difficulty speaking. Described as could not get the words out. This lasted about 30 minutes before she started doing better and the slurred speech then slowly getting better until she was able to communicate. She has no headaches, no focal weakness and no mental status changes. Family members relates that the patient was taking xarelto for her chronic afib in the past, then she developed visual hallucinations and xarelto has to be discontinued and switched to Eliquis. Then she developed visual hallucination again. Again after discontinuation of Eliquis the visual hallucination disappeared. 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 Patient normal functions really well and has no symptoms and signs of dementia. Past Med Surg Social Fam HX - Past Medical History Medical history: hypertension, other Psychiatric history: anxiety, depression - Past Surgical History Surgical History: breast surgery, herniorrhaphy, GLADIS/BSO, other - Social History Smoking Status: Never smoker Smokeless Tobacco Status: No Alcohol use: none Drug use: none - Family History Brother Living Status: Hx Family Cardiac Disorders: Yes Father Living Status: Age at : 85 Cause of : CVA Mother Hx Family Cardiac Disorders: Yes (pacemaker) Sister Hx Family Endocrine Disorder: Yes (diabetes) Medications and Allergies Metoprolol XL (24 HR) Succ [Toprol Xl] 50 mg PO DAILY 02/05/16 [History] Aspirin Enteric Coated [Aspirin EC] 81 mg PO DAILY 03/11/17 [History] Lisinopril 2.5 mg PO DAILY 03/16/17 [History] Allergies rivaroxaban [From Xarelto] Allergy (Verified 03/11/17 10:09) Hallucinating Tetanus Vaccines and Toxoid [Tetanus Vaccines & Toxoid] Allergy (Verified 10:09) Hives alprazolam [From Xanax] Adverse Reaction (Verified 03/11/17 10:09) Hallucinating apixaban [From Eliquis] Adverse Reaction (Verified 03/11/17 10:09) Hallucinating codeine Adverse Reaction (Verified 03/11/17 10:09) Nausea All Systems: A 10-system review of systems was performed and is negative for pertinent findings except as documented above in the HPI. Physical Examination - Vital Signs Vital Signs: Initial Vital Signs Temp Pulse Resp BP Pulse Ox 98.5 F 65 18 195/85 97 03/16/17 06:31 03/16/17 06:31 03/16/17 06:31 03/16/17 06:31 03/16/17 06:31 - Constitutional General appearance: comfortable - Neurologic Sensorimotor examination: intact Detailed motor examination: grossly full strength in all extremities Motor examination - right side: 5/5: deltoids, biceps, triceps, wrist flexion, wrist extension, silica spray mixer, hip flexors, tibialis Anterior, quadriceps, toe extension (EHL), plantarflexion Motor examination - left side: 5/5: deltoids, biceps, triceps, wrist flexion, wrist extension, hip flexors, silica spray mixer, quadriceps, tibialis Anterior, toe extension (EHL), plantarflexion Detailed sensory examination: intact Posture: other (none) Reflex and gait examination: intact Reflexes: Biceps: 2+, Triceps: 2+, Brachioradialis: 2+, Patella: 2+, Achilles: 2 + Mental Status Examination: awake, alert, oriented to person, oriented to place, oriented to time, follows commands appropriately, answers questions appropriately, no agnosia, no aphasia, no aproxia Cranial nerve examination: PERRL, EOMI, visual melgar intact, corneal reflexes brisk symmetrically, sensory to face intact, mastication intact, no facial asymmetry is present, no dysarthria, hearing is intact symmetrically, soft palate elevates bilaterally upon phonation, gag reflex intact, flexes SCM and trapezius muscles symmetrically with full power, tongue protrudes midline, no atrophy or facial fasiculations present Cerebellar examination: no dysmetria, performs finger to nose and heel to coleman symmetrically without ataxia, no gait ataxia, no truncal ataxia, no difficulty with rapid alternating movements Results - Laboratory Findings CBC and BMP: 03/16/17 08:00 03/16/17 08:00 Abnormal lab findings: Abnormal lab results RBC 5.13 M/mcL (3.82-4.97) H 03/16/17 08:00 Plt Count 90 K/mcL (140-400) L 03/16/17 08:00 PT 17.7 Seconds (9.4-12.1) H 03/16/17 07:10 Sodium 131 mEq/L (136-145) L 03/16/17 08:00 Carbon Dioxide 18 mEq/L (19-29) L 03/16/17 08:00 Glucose 118 mg/dL (70-99) H 03/16/17 08:00 POC Glucose 116 (58-89) H 03/16/17 06:31 Calculated Osmolality 274 (280-300) L 03/16/17 08:00 Troponin I 0.16 ng/mL (0-0.03) H* 03/16/17 14:12 Urine Protein 100 mg/dL (Neg-Trace) H 03/16/17 07:49 Urine Blood Large (Negative) H 03/16/17 07:49 Urine Microscopic RBC 50-100 per hpf (0-3) H 03/16/17 07:49 Ur Squamous Epith Cells Many per lpf (None-Few) H 03/16/17 07:49 Consult Discharge Plan - Plan Referrals: Sommer Bettencourt, [employer]MAN [Primary Care Provider] -
[2017-03-17 07:02] LABS: BUN/Creatinine Ratio 16 (6-26); Blood Urea Nitrogen 11 mg/dL (7-20); Carbon Dioxide 24 mEq/L (19-29); Chol/HDL Ratio 4.4 (0-4.9); Cholesterol 169 mg/dL (< 200); Glucose 111 mg/dL (70-99); HDL Cholesterol 38 mg/dL (40-59); INR 1.1; LDL Cholesterol,Calculated 117 mg/dL (0-99); Osmolality,Calculated 276 (280-300); Prothrombin Time 12.1 Seconds (9.4-12.1); Triglycerides 69 mg/dL (< 150); eGFR For African Americans > 60 (> 60); eGFR For Non-African Americans > 60 (> 60)
[2017-03-17 07:04] LABS: Activated Partial Thrombo Time 67.9 Seconds (26.0-36.0); Calcium 8.6 mg/dL (8.6-10.8); Chloride 101 mEq/L (98-109); Potassium 3.9 mEq/L (3.5-4.5); Sodium 133 mEq/L (136-145)
[2017-03-17 07:07] LABS: Basophils # 0.1 K/mcL (0.0-0.2); Basophils % 0.8 %; Eosinophils # 0.1 K/mcL (0.0-0.6); Eosinophils % 2.3 %; Hematocrit 40.9 % (35.3-44.9); Immature Granulocytes % 0.7 % (0-4); Lymphocytes % 16.9 %; Mean Corpuscular HGB Conc 33.5 g/dL (31.6-35.5); Mean Corpuscular Hemoglobin 28.4 pg (28.0-33.3); Mean Corpuscular Volume 84.9 fL (83.0-100.0); Mean Platelet Volume 9.6 fL (9.4-12.4); Monocytes # 0.7 K/mcL (0.0-1.3); Monocytes % 10.9 %; Neutrophils # 4.1 K/mcL (1.6-8.9); Platelet Count 201 K/mcL (140-400); Red Blood Count 4.82 M/mcL (3.82-4.97); Red Cell Distribution Width 13.4 % (11.5-14.5); Segmented Neutrophils % 68.4 %
[2017-03-17 07:08] LABS: Hemoglobin 13.7 g/dL (11.5-15.4)
[2017-03-17] MEDS ORDERED: Metoprolol XL (24 HR) Succ 25 MG TAB.ER.24H PO SCH (09:00)
[2017-03-17] MEDS ORDERED: Metoprolol XL (24 HR) Succ 50 MG TAB.ER.24H PO SCH (09:00)
[2017-03-17] MEDS ORDERED: Aspirin Enteric Coated 81 MG Tablet PO SCH (09:00)
[2017-03-17] MEDS: Metoprolol XL (24 HR) Succ 25 MG TAB.ER.24H PO SCH (09:09)
--- NOTE | 2017-03-17 09:12 | Cardiology Progress Note ---
Date of Encounter: 03/17/17 Time of Encounter: 08:00 Assessment and Plan (1) Altered mental status Current Visit: Yes Status: Acute Symptoms consistent for TIA/CVA; concerning given hx of afib not on anticoagulation. Brain MRI: acute infarct involving the left posterior frontal lobe without mass effect or midline shift--okay to start AC per Neurology. Prelim bilateral carotid: normal carotid velocities. Peak troponin 0.18 with downward trend, no ischemic ECG changes noted; this is likely demand ischemia in the setting of possible CVA and severely elevated BP. Chest pain free. Weakness, slurred speech have improved, not yet at baseline per family and patient report. Neurology consulted--will defer further mgmt to neurology/primary service. Qualifiers: Altered mental status type: disorientation Qualified Code(s): R41.0 - Disorientation, unspecified (2) Atrial fibrillation Current Visit: Yes Status: Chronic Reports diagnosis nearly [address] Ortiz. Currently rate controlled on Toprol XL. 12 hour tele: avg HR=59 afib, max pause= 3.7 seconds (asymptomatic). Will further decrease to 12.5 mg daily. States was placed on anticoagulation for acute LLE DVT in September; was started on Xarelto but experienced visual hallucinations, once she stopped the medication hallucinations stopped; she was then started on Eliquis and hallucinations returned, patient was instructed to then stop medication. CHA2Ds Vasc= 6 (female, age, HTN, TIA/CVA). Recommend full anticoagulation, given adverse reaction with NOAC's recommend coumadin. Patient and family are agreeable, coumadin dosing started with pharmacy to dose as inpatient, goal INR 2-3. Will send referral to coumadin clinic today. No further recommendations from Cardiology; given positive brain MRI, will cancel TTE. Echocardiogram 2016 demonstrated preserved LVEF, 50% with normal RV structure and function, mild-moderately dilated LA, mild AR/MR/TR with normal wall motion. Will coordinate outpatient follow-up. Qualifiers: Atrial fibrillation type: chronic Qualified Code(s): I48.2 - Chronic atrial fibrillation (3) Hypertension Current Visit: Yes Status: Chronic Has been poorly controlled in the outpatient setting--improved, now SBP 130's- 140's. Recommend conservative treatment of blood pressure, will defer medication titration to primary service and Neurology. Recommend increasing ACEi as needed. Qualifiers: Hypertension type: essential hypertension Qualified Code(s): I10 - Essential (primary) hypertension Discussion w patient/family: The assessment and plan as outlined above was discussed with the patient and/or family members who expressed understanding and agreement. All questions were answered. Thank you for involving us in the care of your patient. Please call with any questions. The patient will be discussed and reviewed with Dr. Palmer; changes to be made accordingly. Subjective Principal diagnosis: acute CVA Interval history: Seen and examined. Alert and oriented x3. States right arm tingling/numbness has resolved. Speech improved from yesterday, denies any other complaints this morning upon exam. Objective Vital Signs, Last 4 Hours Temp Pulse Resp BP Pulse Ox 03/17/17 07:12 98.1 F 67 16 149/75 96 General: Conversant, No Apparent Distress, Other (thin, elderly) HEENT: Atraumatic, Normocephaly, Other (blind right eye) Cardiac: Other (irregularly irregular) Lungs: Normal Breath Sounds Neuro: Alert and responsive Abdomen: Soft Skin: No rashes noted on visualized skin Musculoskeletal: No Chest Wall Tenderness Extremities: No Edema, Normal Pulses Results 03/17/17 06:37 03/17/17 06:37 Lab Results 03/16/17 03/16/17 03/16/17 14:12 21:21 22:03 WBC Hgb Hct Plt Count INR APTT 48.2 H Sodium Potassium Chloride Carbon Dioxide BUN Creatinine Glucose Calcium Troponin I 0.16 H* 0.13 H* 03/17/17 03/17/17 03/17/17 06:37 06:37 06:37 WBC 6.0 Hgb 13.7 Hct 40.9 Plt Count 201 D INR 1.1 APTT 67.9 H Sodium 133 L Potassium 3.9 Chloride 101 Carbon Dioxide 24 BUN 11 Creatinine 0.70 Glucose 111 H Calcium 8.6 Troponin I - Imaging and Cardiology Echo: report reviewed Other Results: 12 hour tele: avg HR=59 afib. Max pause=3.7 seconds. - EKG Interpretation EKG results cardiology: personally reviewed Consult Discharge Plan - Plan Referrals: Sommer Bettencourt, [employer]ER [Primary Care Provider] - (Web requested 03/16/17)
--- NOTE | 2017-03-17 11:20 | Electrocardiograph Report ---
[place] [id number] Test Date: 2017-03-16 Pat Name: Loretta Pierce Department: 103 Room: 2A44 Gender: F Medical Clinic Manager: ELIS : [id number] Requested By: Rigo Caruso Order Number: [id number] Reading MD: Ricky Yusuf MD Measurements Intervals [place] Rate: 64 P: [place]: 0 QRS: 29 QRSD: 84 T: 98 QT: 417 QTc: 427 Interpretive Statements ATRIAL FIBRILLATION Poor R wave progression Electronically Signed On 03-17-2017 11:18:37 EDT by Ricky Yusuf MD
--- NOTE | 2017-03-17 12:21 | Internal Med Progress Note ---
Date of Encounter: 03/17/17 Time of Encounter: 08:00 - Assessment and plan (1) CVA (cerebral vascular accident) Current Visit: Yes Status: Acute Assessment and plan: Appears to be slowly improving. Will need speech therapy after discharge. Awaiting PT/OT recommendations but patient does not want to go to rehab. Will continue current plan of care at this time. Qualifiers: CVA mechanism: embolism Precerebral and cerebral artery: middle cerebral artery Laterality of affected vessel: left Qualified Code(s): I63.412 - Cerebral infarction due to embolism of left middle cerebral artery (2) Slurred speech Current Visit: Yes Status: Acute Assessment and plan: Related to acute CVA. Slowly improving but will need further speech therapy. (3) Atrial fibrillation Current Visit: Yes Status: Chronic Assessment and plan: Currently on heparin drip. Warfarin started today. Will check cost for Lovenox /coumadin as well as ability to dose at home. Rate is currently controlled on this regimen. Qualifiers: Atrial fibrillation type: chronic Qualified Code(s): I48.2 - Chronic atrial fibrillation (4) Hypertension Current Visit: Yes Status: Chronic Assessment and plan: Currently at a good level with current management. Qualifiers: Hypertension type: essential hypertension Qualified Code(s): I10 - Essential (primary) hypertension (5) History of non-Hodgkin's lymphoma Current Visit: No Status: Chronic Assessment and plan: Supportive care. (6) Pulmonary edema Current Visit: Yes Status: Resolved Assessment and plan: Pt currently asymptomatic. Qualifiers: Chronicity: acute Qualified Code(s): J81.0 - Acute pulmonary edema - Subjective Interval history: Ms. Pierce is currently admitted for acute L MCA CVA related to embolism from atrial fibrillation. She remains moderate to high risk due to potential for worsening neurologic and cardiac issues. Ms. Pierce feels OK at this time. She denies chest pain or dyspnea. Feels her speech continues to slowly improve but not baseline yet. No fever or chills. Feels the numbness in her R arm is getting somewhat better as well. Does not wish to go to a rehab at this time. Currently on heparin drip. Warfarin started today. - Constitutional Vitals: Temp Pulse Resp BP Pulse Ox 98.1 F 70 18 147/82 97 03/17/17 11:36 03/17/17 11:36 03/17/17 11:36 03/17/17 11:36 03/17/17 11:36 General appearance: Present: A&O X 3, pleasant, answers questions appropriately - Head Head exam: Present: normocephalic - Eye Eye exam: Present: EOMI, conjuntiva pink - ENT ENT exam: Present: mucous membranes moist - Respiratory Respiratory exam: Present: CTAB. Absent: rales, rhonchi - Cardiovascular Cardiovascular exam: Present: irregular rhythm. Absent: tachycardia - GI/Abdominal GI/Abdominal exam: Present: soft. Absent: tenderness - Extremities Exam Extremities exam: Present: warm. Absent: pedal edema, tenderness - Neurological Exam Neurological exam: Present: alert, oriented X3, speech deficit - Psychiatric Psychiatric exam: Present: normal affect, normal mood - Skin Skin exam: Present: dry, warm. Absent: rash Internal Medicine: Result - Labs CBC & Chem 7: 03/17/17 06:37 03/17/17 06:37 Labs: Short CBC 03/17/17 Range/Units 06:37 WBC 6.0 (4.3-11.1) K/mcL Hgb 13.7 (11.5-15.4) g/dL Hct 40.9 (35.3-44.9) % Plt Count 201 D (140-400) K/mcL Neutrophils # 4.1 (1.6-8.9) K/mcL BMP 03/17/17 06:37 Sodium 133 L Potassium 3.9 Chloride 101 Carbon Dioxide 24 BUN 11 Creatinine 0.70 Glucose 111 H Calcium 8.6 Cardiac Enzymes 03/16/17 03/16/17 Range/Units 14:12 21:21 Troponin I 0.16 H* 0.13 H* (0-0.03) ng/mL - ABG Interpretation ABG results: PT/INR, D-dimer PT 12.1 Seconds (9.4-12.1) 03/17/17 06:37 Consult Discharge Plan - Plan Referrals: Aidan Barrera MD [Non-Partnered Physician] - 03/24/17 3:00 pm
--- NOTE | 2017-03-17 12:39 | Discharge Summary ---
Date of Encounter: 03/18/17 Time of Encounter: 08:00 - Discharge Diagnosis (1) CVA (cerebral vascular accident) Priority: Primary Status: Acute Qualifiers: CVA mechanism: embolism Precerebral and cerebral artery: middle cerebral artery Laterality of affected vessel: left Qualified Code(s): I63.412 - Cerebral infarction due to embolism of left middle cerebral artery (2) Slurred speech Priority: Secondary Status: Acute (3) Atrial fibrillation Priority: Secondary Status: Chronic Qualifiers: Atrial fibrillation type: chronic Qualified Code(s): I48.2 - Chronic atrial fibrillation (4) Hypertension Priority: Secondary Status: Chronic Qualifiers: Hypertension type: essential hypertension Qualified Code(s): I10 - Essential (primary) hypertension (5) History of non-Hodgkin's lymphoma Priority: Secondary Status: Chronic (6) Pulmonary edema Priority: Secondary Status: Resolved Qualifiers: Chronicity: acute Qualified Code(s): J81.0 - Acute pulmonary edema - Discharge Medications Prescriptions: Enoxaparin [Lovenox] 60 mg SQ Q12HR #10 syr Atorvastatin [Lipitor] 40 mg PO HS #30 tablet Warfarin [Coumadin] 2.5 mg PO DAILY@1800 #30 tablet Home Medications: Metoprolol XL (24 HR) Succ [Toprol Xl] 50 mg PO DAILY 02/05/16 [History] Aspirin Enteric Coated [Aspirin EC] 81 mg PO DAILY 03/11/17 [History] Lisinopril 2.5 mg PO DAILY 03/16/17 [History] Atorvastatin [Lipitor] 40 mg PO HS #30 tablet 03/18/17 [Rx] Enoxaparin [Lovenox] 60 mg SQ Q12HR syringe 03/18/17 [Rx] Enoxaparin [Lovenox] 60 mg SQ Q12HR #10 syr 03/18/17 [Rx] Warfarin [Coumadin] 2.5 mg PO DAILY@1800 #30 tablet 03/18/17 [Rx] Allergies/Adverse Reactions: Allergies rivaroxaban [From Xarelto] Allergy (Verified 03/11/17 10:09) Hallucinating Tetanus Vaccines and Toxoid [Tetanus Vaccines & Toxoid] Allergy (Verified 10:09) Hives alprazolam [From Xanax] Adverse Reaction (Verified 03/11/17 10:09) Hallucinating apixaban [From Eliquis] Adverse Reaction (Verified 03/11/17 10:09) Hallucinating codeine Adverse Reaction (Verified 03/11/17 10:09) Nausea Date of admission: 03/16/17 12:43 Primary care physician: Sommer Bettencourt CNP Consults: 03/16/17 15:02 Consult to Speech Therapy [CONS] Routine Comment: Evaluate, develop and implement POC Reason for Consult: slurred speech, CVA, please conduct a swallow study Call Completed: No 03/16/17 15:03 Consult to Occupational Therapy [CONS] Routine Comment: Evaluate, develop and implement POC Reason for Consult: new CVA Consult to Physical Therapy [CONS] Routine Comment: Evaluate, develop and implement POC Reason for Consult: new CVA Discharging clinician: Niels Lam Anticipated date of discharge: 03/18/17 - Patient Status Disposition: Home, Self-Care Condition: Good Functional capacity at discharge: independent ambulation Overall status at discharge: patient is progressing back to baseline - Discharge Instructions Instructions: Warfarin (By mouth), Enoxaparin (Injection), Atorvastatin (By mouth), Atrial Fibrillation (DC), Low Fat Diet (DC), Heart Healthy Diet (DC), Ischemic Stroke (DC), Chronic Hypertension (DC) Follow Up With: Clinic, Anticoagulation [Other] - 03/29/17 1:30 pm (This will be your first appointment that will take 45mis to 1 hrs. Your appointments after your first will only take 15 mins. Please bring your medication bottles and a list of all medications. If you have any questions please feel free to call. Thank you!!) [facility] [Provider Group] (office will call you with an appointment date and time) Aidan Barrera MD [Non-Partnered Physician] - 03/24/17 3:00 pm - Diet and Activity Activity: increase activity as tolerated Diet: low fat, low cholesterol Hospital course: Ms. Pierce is a 86 year old female with hx of a fib presented to ED with acute slurred speech and R side numbness and confusion. She was subsequently admitted with presumed CVA Ms. Pierce was admitted to [facility]. She was found to have acute CVA on MRI. Last known well time more than 6 hours before. She was started on anticoagulation due to atrial fibrillation. She was evaluated by cardiology and neurology and switched to Lovenox/coumadin. Initially there was concern for NSTEMI but presumed due to demand ischemia. She was seen by PT and OT and ST. She had slow improvement in her symptoms and home care was recommended. She felt she was OK at home with family and will be followed in coumadin clinic. On 03/18 she was afebrile and vitals stable. She was felt ready for discharge home. - Time Spent with Patient Total time spent providing and/or coordinating discharge services: 41min - Constitutional Vitals: Temp Pulse Resp BP Pulse Ox 98.1 F 70 18 147/82 97 03/17/17 11:36 03/17/17 11:36 03/17/17 11:36 03/17/17 11:36 03/17/17 11:36 General appearance: Present: A&O X 3, pleasant, answers questions appropriately - Head Head exam: Present: normocephalic - Eye Eye exam: Present: EOMI, conjuntiva pink - ENT ENT exam: Present: mucous membranes dry - Respiratory Respiratory exam: Present: CTAB. Absent: rhonchi, wheezes - Cardiovascular Cardiovascular exam: Present: irregular rhythm. Absent: tachycardia - GI/Abdominal GI/Abdominal exam: Present: soft. Absent: tenderness - Extremities Exam Extremities exam: Present: warm. Absent: tenderness - Neurological Exam Neurological exam: Present: alert, oriented X3 - Psychiatric Psychiatric exam: Present: normal affect, normal mood - Skin Skin exam: Present: warm. Absent: rash
--- NOTE | 2017-03-17 16:30 | Physician Discharge Referral ---
Home Health/Hosp Referral Info Transfer to: Home Health - Diagnosis (1) CVA (cerebral vascular accident) Status: Acute (2) Slurred speech Status: Acute (3) Atrial fibrillation Status: Chronic (4) Hypertension Status: Chronic (5) History of non-Hodgkin's lymphoma Status: Chronic (6) Pulmonary edema Status: Resolved - Respiratory Orders Smoking Cessation: Smoking cessation has been advised. For more information, call the [place] Tobacco Quit Line at 4-794-LSFK-NOW. - Transfer Medications Prescriptions: Enoxaparin [Lovenox] 60 mg SQ Q12HR #10 syr Home Medications: Metoprolol XL (24 HR) Succ [Toprol Xl] 50 mg PO DAILY 02/05/16 [History] Aspirin Enteric Coated [Aspirin EC] 81 mg PO DAILY 03/11/17 [History] Lisinopril 2.5 mg PO DAILY 03/16/17 [History] Enoxaparin [Lovenox] 60 mg SQ Q12HR #10 syr 03/17/17 [Rx] Allergies/Adverse Reactions: Allergies rivaroxaban [From Xarelto] Allergy (Verified 03/11/17 10:09) Hallucinating Tetanus Vaccines and Toxoid [Tetanus Vaccines & Toxoid] Allergy (Verified 10:09) Hives alprazolam [From Xanax] Adverse Reaction (Verified 03/11/17 10:09) Hallucinating apixaban [From Eliquis] Adverse Reaction (Verified 03/11/17 10:09) Hallucinating codeine Adverse Reaction (Verified 03/11/17 10:09) Nausea Certification: Further, I certify that my clinical findings support that this patient is homebound (i.e. absences from home require considerable and taxing effort and are for medical reasons or [employer] or infrequently or short duration when for other reasons) because: Attestation: My signature below is to certify that this patient is under my care and that I, or nurse practitioner, or a physician's marketing administrative assistant working with me, has a face-to -face encounter with this patient.
--- NOTE | 2017-03-17 17:28 | Carotid Imaging Report ---
Carotid Duplex Patient Name:Loretta Pierce Order Number:[id number] Procedure Date:03/16/2017 Date:1930Age:86 yrs Gender:Female Rt.BP:176 / 81 mmHgHeart Rate: Location:[facility] Room #: 44 Braider Tender:Melanie Ellison, RDCS Referring MD:Aisha Oden [employer] SPECIALIST pediatric dentist:Sommer Bettencourt, [employer]BILE MARKETING SPECIALIST Reading MD:Harmeet Stallings MD Primary Indications:Right sided weakness, slurred speech Risk Factors Yes/No Hypertension Yes Impressions: Findings: Bilateral carotid system is essentially normal. Findings Carotid Duplex: Right: The right proximal common carotid artery has a PSV of 81 cm/s and a EDV of 9 cm/s. The right mid common carotid artery has a PSV of 62 cm/s and a EDV of 10 cm/s. The right distal common carotid artery has a PSV of 64 cm/s and a EDV of 7 cm/s. The right bifurcation has a PSV of 27 cm/s and a EDV of 4 cm/s. The right proximal internal carotid artery has a PSV of 48 cm/s and a EDV of 10 cm/s. The right mid internal carotid artery has a PSV of 65 cm/s and a EDV of 23 cm/s. The right distal internal carotid artery has a PSV of 98 cm/s and a EDV of 11 cm/s. The right eca has a PSV of 58 cm/s and a EDV of 2 cm/s. The right vertebral artery has a PSV of 33 cm/s and a EDV of 6 cm/s. Left: The left proximal common carotid artery has a PSV of 73 cm/s and a EDV of 9 cm/s. The left mid common carotid artery has a PSV of 64 cm/s and a EDV of 11 cm/s. The left distal common carotid artery has a PSV of 62 cm/s and a EDV of 9 cm/s. The left bifurcation has a PSV of 54 cm/s and a EDV of 6 cm/s. The left proximal internal carotid artery has a PSV of 29 cm/s and a EDV of 2 cm/s. The left mid internal carotid artery has a PSV of 74 cm/s and a EDV of 13 cm/s. The left distal internal carotid artery has a PSV of 77 cm/s and a EDV of 11 cm/s. The left eca has a PSV of 66 cm/s and a EDV of 7 cm/s. The left vertebral artery has a PSV of 44 cm/s and a EDV of 8 cm/s. Prior Study: No prior study available for comparison. Carotid Results Right PSV EDV Assessment Proximal CCA 81 9 Mid CCA 62 10 Distal CCA 64 7 Bifurcation 27 4 Proximal ICA 48 10 Mid ICA 65 23 Distal ICA 98 11 ECA 58 2 Vertebral Artery 33 6 Antegrade Flow Left PSV EDV Assessment Proximal CCA 73 9 Mid CCA 64 11 Distal CCA 62 9 Bifurcation 54 6 Proximal ICA 29 2 Mid ICA 74 13 Distal ICA 77 11 ECA 66 7 Vertebral Artery 44 8 Antegrade Flow Ratio's Right ICA/CCA Ratio: 1.60 ICA/CCA Values: 98/62 Left ICA/CCA Ratio: 1.20 ICA/CCA Values: 77/64 Updated by Harmeet Stallings MD on 03/17/2017 5:20:55 PM electronically signed on 03/17/2017 5:21:11 PM with status of Final
[2017-03-17] MEDS: *HR* Enoxaparin 60 MG/0.6 ML SYRINGE SQ SCH (17:33)
--- NOTE | 2017-03-17 17:42 | Electrocardiograph Report ---
[place] [id number] Test Date: 2017-03-16 Pat Name: Loretta Pierce Department: 103 Room: 2A44 Gender: F Missile Inspector: [facility] : 1930 Requested By: Niels Lam Order Number: [id number] Reading MD: Niurka Purdy Measurements Intervals [place] Rate: 55 P: GA: 0 QRS: 69 QRSD: 78 T: 86 QT: 405 QTc: 393 Interpretive Statements ATRIAL FIBRILLATION WITH SLOW VENTRICULAR RESPONSE NONSPECIFIC ST \T\ T-WAVE ABNORMALITY ABNORMAL RHYTHM ECG Electronically Signed On 03-17-2017 17:40:27 EDT by Niurka Purdy
[2017-03-17] MEDS ORDERED: *HR* Warfarin 2.5 MG TABLET PO SCH (18:00)
[2017-03-17] MEDS ORDERED: Warfarin perPT PO PRN (18:00)
[2017-03-18 04:12] LABS: Hematocrit 39.1 % (35.3-44.9); Hemoglobin 13.3 g/dL (11.5-15.4); Mean Corpuscular Hemoglobin 28.2 pg (28.0-33.3); Mean Platelet Volume 9.2 fL (9.4-12.4); Platelet Count 205 K/mcL (140-400); Red Blood Count 4.71 M/mcL (3.82-4.97); Red Cell Distribution Width 13.3 % (11.5-14.5)
[2017-03-18 04:17] LABS: INR 1.1; Prothrombin Time 12.1 Seconds (9.4-12.1)
[2017-03-18 04:34] LABS: BUN/Creatinine Ratio 15 (6-26); Blood Urea Nitrogen 11 mg/dL (7-20); Calcium 8.6 mg/dL (8.6-10.8); Carbon Dioxide 25 mEq/L (19-29); Chloride 103 mEq/L (98-109); Glucose 103 mg/dL (70-99); Magnesium 1.8 mg/dL (1.6-2.6); Osmolality,Calculated 282 (280-300); Potassium 3.9 mEq/L (3.5-4.5); Sodium 136 mEq/L (136-145); eGFR For African Americans > 60 (> 60); eGFR For Non-African Americans > 60 (> 60)
[2017-03-18] MEDS: *HR* Enoxaparin 60 MG/0.6 ML SYRINGE SQ SCH (05:11)
[2017-03-18] MEDS: Metoprolol XL (24 HR) Succ 25 MG TAB.ER.24H PO SCH (07:57)
[2017-03-18 11:21] VITALS: BP 152/58
== END 2017-03-18 14:59 | disposition home or self-care (01) | DRG 64 ==
LOC: 2ANU 06:29 → EMEROO 06:29 → 2ANU 11:42
PROVIDERS: ADMIT Internal Medicine; ATTEND Internal Medicine

== ENCOUNTER 2018-04-23 13:41 | Inpatient (IN) ==
--- NOTE | 2018-04-23 13:55 | Emergency Department Note ---
Disposition Clinical Impression: Pulmonary edema, Hyponatremia, Supratherapeutic INR, Dyspnea Disposition: Admitted As Inpatient Condition: Good General Adult HPI - General Chief complaint: ED Shortness of Breath/Dyspnea Stated complaint: CHARLES Time Seen by Provider: 04/23/18 13:51 - History of Present Illness Pain Scale: 5 - Related Data Home Medications Medication Instructions Recorded Confirmed Metoprolol XL (24 HR) Succ [Toprol 25 mg PO DAILY 02/05/16 04/23/18 Xl] Aspirin Enteric Coated [Aspirin EC] 81 mg PO DAILY 03/11/17 04/23/18 Lisinopril 2.5 mg PO DAILY 03/16/17 04/23/18 Warfarin Sodium [Warfarin Sodium] 5 mg PO SUMOWEFR 06/15/17 04/23/18 Warfarin [Coumadin] 2.5 mg PO TUTHSA 06/15/17 04/23/18 Previous Rx's Medication Instructions Recorded Atorvastatin [Lipitor] 40 mg PO HS #30 tablet 03/18/17 Allergies Allergy/AdvReac Type Severity Reaction Status Date / Time rivaroxaban [From Xarelto] Allergy Hallucinati Verified 04/11/18 08:27 ng Tetanus Vaccines and Toxoid Allergy Hives Verified 04/11/18 08:27 [Tetanus Vaccines & Toxoid] alprazolam [From Xanax] AdvReac Hallucinati Verified 04/11/18 08:27 ng apixaban [From Eliquis] AdvReac Hallucinati Verified 04/11/18 08:27 ng codeine AdvReac Nausea Verified 04/11/18 08:27 Past Medical History - Past Medical History Medical history: Reports: atrial fibrillation, cancer (Large B-cell lymphoma, in remission), DVT, hypertension, other Surgical history: Reports: breast surgery, cancer surgery, herniorrhaphy, GLADIS/ BSO, other Psychiatric history: Reports: anxiety - Social History Smoking Status: Never smoker Smokeless Tobacco Status: No Alcohol use: Reports: none Drug use: Reports: none Course Vital Signs Temperature 98.6 F 04/23/18 13:43 Pulse Rate 71 04/23/18 13:43 Respiratory Rate 16 04/23/18 13:43 Blood Pressure 167/82 04/23/18 13:43 O2 Sat by Pulse Oximetry 97 04/23/18 13:43 Temperature 97.5 F L 04/23/18 17:35 Pulse Rate 64 04/23/18 17:35 Respiratory Rate 16 04/23/18 17:35 Blood Pressure 163/75 04/23/18 17:35 O2 Sat by Pulse Oximetry 95 04/23/18 17:40 Oxygen Delivery Oxygen Delivery Room Air Medical Decision Making - Lab Data Result diagrams: 04/23/18 14:00 04/23/18 14:00 Lab Results 04/23/18 04/23/18 04/23/18 Range/Units 14:00 14:00 14:00 WBC 5.1 (4.3-11.1) K/mcL RBC 4.46 (3.82-4.97) M/mcL Hgb 12.4 (11.5-15.4) g/dL Hct 35.9 (35.3-44.9) % MCV 80.5 L (83.0-100.0) fL MCH 27.8 L (28.0-33.3) pg MCHC 34.5 (31.6-35.5) g/dL RDW 15.8 H (11.5-14.5) % Plt Count 181 (140-400) K/mcL MPV 10.3 (9.4-12.4) fL Seg Neutrophils % 53.0 % Lymphocytes % 22.0 % Monocytes % 19.0 % Eosinophils % 6.0 % Neutrophils # 2.7 (1.6-8.9) K/mcL Lymphocytes # 1.1 (0.6-4.6) K/mcL Monocytes # 1.0 (0.0-1.3) K/mcL Eosinophils # 0.3 (0.0-0.6) K/mcL Platelet Estimate Normal (Normal) PT (9.4-12.1) Seconds INR Sodium 125 L (136-145) mEq/L Potassium 4.3 (3.5-5.1) mEq/L Chloride 95 L (98-107) mEq/L Carbon Dioxide 23 (23-29) mEq/L BUN 10 (8-23) mg/dL Creatinine 0.57 L (0.60-1.20) mg/dL Est GFR ( Amer) > 60 (> 60) Est GFR (Non-Af Amer) > 60 (> 60) BUN/Creatinine Ratio 18 (6-26) Glucose 184 H (70-105) mg/dL Calculated Osmolality 264 L (280-300) Calcium 8.4 L (8.6-10.3) mg/dL Troponin I 0.03 (< 0.04) ng/mL B-Natriuretic Peptide 706 H (Less than 100) pg/mL 04/23/18 Range/Units 14:00 WBC (4.3-11.1) K/mcL RBC (3.82-4.97) M/mcL Hgb (11.5-15.4) g/dL Hct (35.3-44.9) % MCV (83.0-100.0) fL MCH (28.0-33.3) pg MCHC (31.6-35.5) g/dL RDW (11.5-14.5) % Plt Count (140-400) K/mcL MPV (9.4-12.4) fL Seg Neutrophils % % Lymphocytes % % Monocytes % % Eosinophils % % Neutrophils # (1.6-8.9) K/mcL Lymphocytes # (0.6-4.6) K/mcL Monocytes # (0.0-1.3) K/mcL Eosinophils # (0.0-0.6) K/mcL Platelet Estimate (Normal) PT 46.0 H* (9.4-12.1) Seconds INR 4.1 Sodium (136-145) mEq/L Potassium (3.5-5.1) mEq/L Chloride (98-107) mEq/L Carbon Dioxide (23-29) mEq/L BUN (8-23) mg/dL Creatinine (0.60-1.20) mg/dL Est GFR ( Amer) (> 60) Est GFR (Non-Af Amer) (> 60) BUN/Creatinine Ratio (6-26) Glucose (70-105) mg/dL Calculated Osmolality (280-300) Calcium (8.6-10.3) mg/dL Troponin I (< 0.04) ng/mL B-Natriuretic Peptide (Less than 100) pg/mL Attestation Statement - Attestation Attestation: I examined this patient and my medical decision-making was reviewed with the Resident Physician. I agree with the documented findings, disposition and treatment plan as described except to the extent set forth below. Ucmw-ep-odua time provided Patient arrives complaining of dyspnea. She has a known history of lymphoma. She is taking oral chemotherapy. She also has history of atrial fibrillation which is consistent with her EKG today. She takes warfarin. She appears in no acute respiratory distress on arrival. I evaluated her in conjunction with the resident physician Dr. Dowell
--- NOTE | 2018-04-23 14:04 | Emergency Department Note ---
Disposition Clinical Impression: Hyponatremia, Supratherapeutic INR Pulmonary edema Qualifiers: Chronicity: acute Qualified Code(s): J81.0 - Acute pulmonary edema Dyspnea Qualifiers: Dyspnea type: unspecified Qualified Code(s): R06.00 - Dyspnea, unspecified Disposition: Admitted As Inpatient Condition: Good Referrals: Mario Colon MD [Family Provider] - Aidan Barrera MD [Primary Care Provider] - Forms: ED Satisfaction Letter Time of Disposition: 15:19 SOB HPI - General Chief Complaint: ED Shortness of Breath/Dyspnea Stated Complaint: CHARLES Time Seen by Provider: 04/23/18 13:51 Source: patient, family Mode of arrival: ambulatory Limitations: no limitations Nursing Notes Reviewed: Yes Vital Signs Reviewed: Yes - History of Present Illness 87-year-old female history of lymphoma currently on chemotherapy presents emergency department for dyspnea. Reports over the past week she is been experiencing difficulty in catching her breath. It does not worsen with exertion. She is been experiencing cough and congestion. No fevers at home. Denies any chest pain. Her daughters at bedside and reports her legs appear more swollen. No history of congestive heart failure. She has been getting chemotherapy every Tuesday for the past 4 weeks and has recently print spread out to monthly. Oncologist is Dr. Pittman. This is her 2nd recurrence of lymphoma. States she reports the last time she felt this way she had fluid on her lungs. She denies any other complaints at this time. She takes Coumadin for her atrial fibrillation. - Related Data Home Medications Medication Instructions Recorded Confirmed Metoprolol XL (24 HR) Succ [Toprol 25 mg PO DAILY 02/05/16 04/23/18 Xl] Aspirin Enteric Coated [Aspirin EC] 81 mg PO DAILY 03/11/17 04/23/18 Lisinopril 2.5 mg PO DAILY 03/16/17 04/23/18 Warfarin Sodium [Warfarin Sodium] 5 mg PO SUMOWEFR 06/15/17 04/23/18 Warfarin [Coumadin] 2.5 mg PO TUTHSA 06/15/17 04/23/18 Previous Rx's Medication Instructions Recorded Atorvastatin [Lipitor] 40 mg PO HS #30 tablet 03/18/17 Allergies Allergy/AdvReac Type Severity Reaction Status Date / Time rivaroxaban [From Xarelto] Allergy Hallucinati Verified 04/11/18 08:27 ng Tetanus Vaccines and Toxoid Allergy Hives Verified 04/11/18 08:27 [Tetanus Vaccines & Toxoid] alprazolam [From Xanax] AdvReac Hallucinati Verified 04/11/18 08:27 ng apixaban [From Eliquis] AdvReac Hallucinati Verified 04/11/18 08:27 ng codeine AdvReac Nausea Verified 04/11/18 08:27 All systems ED: reviewed and negative except as stated. Review of Systems: As Per HPI Constitutional: Denies: fever, chills Cardiovascular: Denies: chest pain, dyspnea on exertion Respiratory: Reports: cough, dyspnea. Denies: wheezes, hemoptysis Gastrointestinal: Denies: abdominal pain, nausea, vomiting Genitourinary: Denies: dysuria Musculoskeletal: Denies: back pain, neck pain Neurological: Denies: headache Past Medical History - Past Medical History Attestation: Yes The following information was validated with the patient. Source: patient Medical history: Reports: atrial fibrillation, cancer, DVT, hypertension, other Surgical history: Reports: breast surgery, cancer surgery, herniorrhaphy, GLADIS/ BSO, other Psychiatric history: Reports: anxiety - Social History Smoking Status: Never smoker Smokeless Tobacco Status: No Alcohol use: Reports: none Drug use: Reports: none Physical Exam - General Limitations: no limitations General appearance: alert, in no apparent distress - Head Head exam: atraumatic, normocephalic, normal inspection - Eye Eye exam: Present: normal appearance, PERRL, EOMI - ENT ENT exam: normal exam, normal oropharynx, mucous membranes moist - Neck Neck exam: Present: normal inspection, full ROM, trachea midline - Chest Chest inspection: Present: normal inspection, symmetric chest wall rise - Respiratory Respiratory exam: Present: normal lung sounds bilaterally. Absent: respiratory distress, wheezes, prolonged expiratory phase - Expanded Respiratory Exam Location: decreased breath sounds: Lower - Cardiovascular Cardiovascular exam: Present: regular rate, irregular rhythm, normal heart sounds. Absent: systolic murmur, diastolic murmur - Expanded Cardiovascular Exam Peripheral pulses: 2+: radial (R), radial (L) - Abdominal Exam Abdominal exam: Present: soft, Non-Tender, normal bowel sounds. Absent: tenderness, distention, guarding, rebound, rigidity - Extremities Exam Extremities exam: Present: normal inspection, full ROM, normal capillary refill , pedal edema (Symmetrical +1). Absent: tenderness, calf tenderness - Back Exam Back exam: Present: normal inspection, full ROM. Absent: tenderness - Neurological Exam Neurological exam: Present: alert, oriented X3 - Psychiatric Psychiatric exam: Present: normal affect, normal mood - Skin Skin exam: Present: warm, dry, intact, normal color. Absent: rash, cyanosis, diaphoresis Course Course Narrative: Patient reports subjective dyspnea unable to catch her breath. Oxygen saturation normal. No respiratory distress. Lungs are clear bilaterally with rales in the bases. No chest tenderness. Heart is irregularly irregular. She does have some slight pedal edema bilaterally. No calf tenderness. She is currently anticoagulated. Low suspicion for pulmonary embolism. At this time will evaluate for possible a respiratory infection versus pleural effusion. Will obtain chest x-ray. Given her swelling will also evaluate for any ischemic changes. - Reevaluation(s) Reevaluation #1: Review for lab shows acute on chronic hyponatremia 125. Her chlorides also low at 95. Her creatinine functions normal. 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 Her BNP is significantly elevated 706. Her chest x-ray shows findings consistent with pulmonary edema. Given her complex history patient will be admitted for further management of the pulmonary edema and dyspnea. Patient and daughter are in agreement with this plan. EKG did not show any ischemic findings. Troponin 0.03. Her INR is elevated at 4.0. She states last week it was 2.6. She denies any G.I. bleed symptoms at this time and will not be administered any vitamin K. Patient will be admitted for dyspnea, pulmonary edema, super therapeutic INR, hyponatremia with a history of lymphoma. Time: 15:18 - Consultations Consultation #1: Spoke with on-call hospitalist mariia Liang to admit for dyspnea secondary to pulm edema,, hyponatremia, supratherapeutic INR. No further orders at this time Time: 15:49 Vital Signs Temperature 98.6 F 04/23/18 13:43 Pulse Rate 71 04/23/18 13:43 Respiratory Rate 16 04/23/18 13:43 Blood Pressure 167/82 04/23/18 13:43 O2 Sat by Pulse Oximetry 97 04/23/18 13:43 Temperature 98.6 F 04/23/18 13:57 Pulse Rate 81 04/23/18 15:12 Respiratory Rate 16 04/23/18 15:12 Blood Pressure 151/76 04/23/18 15:12 O2 Sat by Pulse Oximetry 98 04/23/18 15:12 Oxygen Delivery Oxygen Delivery Room Air Shortness of Breath/Dyspnea - MDM Narrative Medical decision making narrative: Patient was discussed with my attending physician who agrees with ED management and final disposition. They independently evaluated the patient. Please refer to their attestation to this encounter for additional information. This note was generated by [employer] voice recognition software and as a result grammatical or spelling errors may occur using this program. - Medical Records Medical records reviewed: Yes I reviewed the patient's medical records. - Lab Data Lab results reviewed: Yes I reviewed the patient's lab results. Result diagrams: 04/23/18 14:00 04/23/18 14:00 Lab Results 04/23/18 04/23/18 04/23/18 Range/Units 14:00 14:00 14:00 WBC 5.1 (4.3-11.1) K/mcL RBC 4.46 (3.82-4.97) M/mcL Hgb 12.4 (11.5-15.4) g/dL Hct 35.9 (35.3-44.9) % MCV 80.5 L (83.0-100.0) fL MCH 27.8 L (28.0-33.3) pg MCHC 34.5 (31.6-35.5) g/dL RDW 15.8 H (11.5-14.5) % Plt Count 181 (140-400) K/mcL MPV 10.3 (9.4-12.4) fL Seg Neutrophils % 53.0 % Lymphocytes % 22.0 % Monocytes % 19.0 % Eosinophils % 6.0 % Neutrophils # 2.7 (1.6-8.9) K/mcL Lymphocytes # 1.1 (0.6-4.6) K/mcL Monocytes # 1.0 (0.0-1.3) K/mcL Eosinophils # 0.3 (0.0-0.6) K/mcL Platelet Estimate Normal (Normal) PT (9.4-12.1) Seconds INR Sodium 125 L (136-145) mEq/L Potassium 4.3 (3.5-5.1) mEq/L Chloride 95 L (98-107) mEq/L Carbon Dioxide 23 (23-29) mEq/L BUN 10 (8-23) mg/dL Creatinine 0.57 L (0.60-1.20) mg/dL Est GFR ( Amer) > 60 (> 60) Est GFR (Non-Af Amer) > 60 (> 60) BUN/Creatinine Ratio 18 (6-26) Glucose 184 H (70-105) mg/dL Calculated Osmolality 264 L (280-300) Calcium 8.4 L (8.6-10.3) mg/dL Troponin I 0.03 (< 0.04) ng/mL B-Natriuretic Peptide 706 H (Less than 100) pg/mL 04/23/18 Range/Units 14:00 WBC (4.3-11.1) K/mcL RBC (3.82-4.97) M/mcL Hgb (11.5-15.4) g/dL Hct (35.3-44.9) % MCV (83.0-100.0) fL MCH (28.0-33.3) pg MCHC (31.6-35.5) g/dL RDW (11.5-14.5) % Plt Count (140-400) K/mcL MPV (9.4-12.4) fL Seg Neutrophils % % Lymphocytes % % Monocytes % % Eosinophils % % Neutrophils # (1.6-8.9) K/mcL Lymphocytes # (0.6-4.6) K/mcL Monocytes # (0.0-1.3) K/mcL Eosinophils # (0.0-0.6) K/mcL Platelet Estimate (Normal) PT 46.0 H* (9.4-12.1) Seconds INR 4.1 Sodium (136-145) mEq/L Potassium (3.5-5.1) mEq/L Chloride (98-107) mEq/L Carbon Dioxide (23-29) mEq/L BUN (8-23) mg/dL Creatinine (0.60-1.20) mg/dL Est GFR ( Amer) (> 60) Est GFR (Non-Af Amer) (> 60) BUN/Creatinine Ratio (6-26) Glucose (70-105) mg/dL Calculated Osmolality (280-300) Calcium (8.6-10.3) mg/dL Troponin I (< 0.04) ng/mL B-Natriuretic Peptide (Less than 100) pg/mL - Radiology Data Radiology results reviewed: Yes I reviewed the patient's radiology results. Chest X-Ray 04/23/18 13:59 IMPRESSION: Mild pulmonary edema. D/ / 04/23/2018 14:36:32 Chidi Connor MD / barney Interpreting Provider: Chidi Connor MD - EKG Data EKG attestation: Yes I reviewed and interpreted this EKG. EKG results narrative: EKG performed 1343 atrial fibrillation 72 beats per minute, normal axis, good R wave progression, no ST elevation or depression. Compared to prior EKG performed 03/16/2017 shows similar consistent findings. No acute ischemic changes.
[2018-04-23 14:15] LABS: Hematocrit 35.9 % (35.3-44.9); Hemoglobin 12.4 g/dL (11.5-15.4); Lymphocytes # 1.1 K/mcL (0.6-4.6); Mean Corpuscular HGB Conc 34.5 g/dL (31.6-35.5); Mean Corpuscular Hemoglobin 27.8 pg (28.0-33.3); Mean Corpuscular Volume 80.5 fL (83.0-100.0); Mean Platelet Volume 10.3 fL (9.4-12.4); Platelet Count 181 K/mcL (140-400); Red Blood Count 4.46 M/mcL (3.82-4.97); Red Cell Distribution Width 15.8 % (11.5-14.5)
[2018-04-23 14:17] LABS: INR 4.1
[2018-04-23 14:34] LABS: Eosinophils # 0.3 K/mcL (0.0-0.6); Neutrophils # 2.7 K/mcL (1.6-8.9); Platelet Estimate Normal (Normal)
[2018-04-23 14:39] LABS: BUN/Creatinine Ratio 18 (6-26); Blood Urea Nitrogen 10 mg/dL (8-23); Calcium 8.4 mg/dL (8.6-10.3); Carbon Dioxide 23 mEq/L (23-29); Chloride 95 mEq/L (98-107); Glucose 184 mg/dL (70-105); Osmolality,Calculated 264 (280-300); Potassium 4.3 mEq/L (3.5-5.1); Sodium 125 mEq/L (136-145); eGFR For Non-African Americans > 60 (> 60)
[2018-04-23 14:40] LABS: Troponin I 0.03 ng/mL (< 0.04)
--- NOTE | 2018-04-23 16:16 | Internal Med History&Physical ---
Date of Encounter: 04/23/18 Time of Encounter: 16:12 Internal Medicine - H&P: HPI Chief complaint: sob Admitted From: Emergency Dept Plans for Post Hospital Care: Home History of present illness: Ms. Pierce is a 87 year old female Patient with history of B-cell lymphoma that the recurrent currently undergoing chemotherapy, chronic atrial fibrillation on Coumadin, hypertension, history of left lower extremity DVT which resolved also prior TIA patient presented to emergency room brought in by daughter due to shortness of breath both with exertion and at rest with some cough that is nonproductive shortness of breath accompanied by PND and orthopnea and mild leg edema in emergency room BNP was 706 blood pressure in the 150s 170 systolics chest x ra consistent with heart failure patient admitted for treatment of diastolic heart failure. Past Med Surg Social Fam HX - Past Medical History Medical history: atrial fibrillation, cancer, DVT, hypertension, other Additional medical history: LARGE B-CELL CA Psychiatric history: anxiety - Past Surgical History Surgical History: breast surgery, cancer surgery, herniorrhaphy, GLADIS/BSO, other Additional surgical history: eye laser - kidney surgery - tonsils - colonoscopy - Social History Smoking Status: Never smoker Smokeless Tobacco Status: No Alcohol use: none Drug use: none - Family History Brother Living Status: Hx Family Cardiac Disorders: Yes Father Living Status: Mother Hx Family Cardiac Disorders: Yes (pacemaker) Sister Hx Family Endocrine Disorder: Yes (diabetes) Internal Medicine - H&P: Meds Metoprolol XL (24 HR) Succ [Toprol Xl] 25 mg PO DAILY 02/05/16 [History] Aspirin Enteric Coated [Aspirin EC] 81 mg PO DAILY 03/11/17 [History] Lisinopril 2.5 mg PO DAILY 03/16/17 [History] Atorvastatin [Lipitor] 40 mg PO HS #30 tablet 03/18/17 [Rx] Warfarin Sodium [Warfarin Sodium] 5 mg PO SUMOWEFR 06/15/17 [History] Warfarin [Coumadin] 2.5 mg PO TUTHSA 06/15/17 [History] 3 Allergy/AdvReac Type Severity Reaction Status Date / Time rivaroxaban [From Xarelto] Allergy Hallucinati Verified 04/11/18 08:27 ng Tetanus Vaccines and Toxoid Allergy Hives Verified 04/11/18 08:27 [Tetanus Vaccines & Toxoid] alprazolam [From Xanax] AdvReac Hallucinati Verified 04/11/18 08:27 ng apixaban [From Eliquis] AdvReac Hallucinati Verified 04/11/18 08:27 ng codeine AdvReac Nausea Verified 04/11/18 08:27 All Systems PM: A 10-system review of systems was performed and is negative for pertinent findings except as documented above in the HPI. - Constitutional Vitals: Temp Pulse Resp BP Pulse Ox 98.6 F 81 16 151/76 98 04/23/18 13:57 04/23/18 15:12 04/23/18 15:12 04/23/18 15:12 04/23/18 15:12 General appearance: Present: cooperative - Eye Eye exam: Present: PERRL, conjuntiva pink, sclera anicteric Pupils: Present: PERRL - Neck Neck exam general surgery: Present: supple, trachea midline. Absent: lymphadenopathy - Respiratory Respiratory exam: Present: decreased breath sounds - Cardiovascular Cardiovascular exam: Present: RRR, +S1, +S2. Absent: diastolic murmur, gallop, rubs, systolic murmur - Extremities Exam Extremities exam: Present: pedal edema Internal Med - H&P Results - Labs CBC & Chem 7: 04/23/18 14:00 04/23/18 14:00 Labs: Short CBC 04/23/18 Range/Units 14:00 WBC 5.1 (4.3-11.1) K/mcL Hgb 12.4 (11.5-15.4) g/dL Hct 35.9 (35.3-44.9) % Plt Count 181 (140-400) K/mcL Neutrophils # 2.7 (1.6-8.9) K/mcL BMP 04/23/18 14:00 Sodium 125 L Potassium 4.3 Chloride 95 L Carbon Dioxide 23 BUN 10 Creatinine 0.57 L Glucose 184 H Calcium 8.4 L Cardiac Enzymes 04/23/18 Range/Units 14:00 Troponin I 0.03 (< 0.04) ng/mL - Impressions ITS Impressions Chest X-Ray 04/23/18 13:59 IMPRESSION: Mild pulmonary edema. 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 Blood pressure needs better control and started on IV Lasix Qualifiers: Heart failure type: unspecified Heart failure chronicity: acute Qualified Code(s): I50.9 - Heart failure, unspecified (2) Lymphoma Current Visit: Yes Status: Acute Assessment and plan: patient curretnt undergoing chemo Qualifiers: Lymphoma type: unspecified type Lymphoma site: unspecified region Qualified Code(s): C85.90 - Non-Hodgkin lymphoma, unspecified, unspecified site (3) Hyponatremia Current Visit: Yes Status: Acute (4) Hypertension Current Visit: No Status: Chronic Assessment and plan: uncontrolled will adjust BP meds Qualifiers: Hypertension type: essential hypertension Qualified Code(s): I10 - Essential (primary) hypertension (5) Atrial fibrillation Current Visit: No Status: Chronic Assessment and plan: rate well controlled and inr therapeutic Qualifiers: Atrial fibrillation type: chronic Qualified Code(s): I48.2 - Chronic atrial fibrillation - Time Spent With Patient Total time spent is greater than 50% in coordination of care (as documented) at patient's floor/unit and/or counseling patient:
[2018-04-23] MEDS ORDERED: Naloxone 0.4 MG/ML INJ IVP PRN (16:22)
[2018-04-23] MEDS: Furosemide 40 MG/4 ML VIAL IVP SCH (19:24)
[2018-04-24 05:30] LABS: Prothrombin Time 34.3 Seconds (9.4-12.1)
[2018-04-24 05:49] LABS: Alanine Aminotransferase 40 Units/L (7-52); Albumin 3.5 g/dL (3.5-5.7); Albumin/Globulin Ratio 1.8 (1.1-2.2); Alkaline Phosphatase 64 Units/L (34-104); Aspartate Amino Transferase 26 Units/L (13-39); BUN/Creatinine Ratio 16 (6-26); Bilirubin,Total 1.2 mg/dL (0.3-1.0); Blood Urea Nitrogen 8 mg/dL (8-23); Calcium 8.4 mg/dL (8.6-10.3); Carbon Dioxide 25 mEq/L (23-29); Chloride 98 mEq/L (98-107); Chol/HDL Ratio 2.4 (0-4.9); Cholesterol 88 mg/dL (< 200); Globulin 1.9 g/dL (2.4-3.5); Glucose 111 mg/dL (70-105); HDL Cholesterol 37 mg/dL (40-59); LDL Cholesterol,Calculated 37 mg/dL (0-99); Magnesium 1.6 mg/dL (1.6-2.6); Osmolality,Calculated 271 (280-300); Potassium 3.5 mEq/L (3.5-5.1); Sodium 131 mEq/L (136-145); Total Protein 5.4 g/dL (6.4-8.9); Triglycerides 68 mg/dL (< 150); eGFR For Non-African Americans > 60 (> 60)
[2018-04-24] MEDS: Furosemide 40 MG/4 ML VIAL IVP SCH ×2 (08:44→16:35)
[2018-04-24] MEDS: Aspirin Enteric Coated 81 MG Tablet PO SCH (08:44)
[2018-04-24] MEDS: Isosorbide MONOnitrate (24 HR) 30 MG TAB.ER.24H PO SCH (08:45)
[2018-04-24] MEDS ORDERED: Metoprolol XL (24 HR) Succ 25 MG TAB.ER.24H PO SCH (09:00)
--- NOTE | 2018-04-24 09:18 | Electrocardiograph Report ---
[place] [id number] Test Date: 2018-04-23 Pat Name: Loretta Pierce Department: 104 Room: 2NE20 Gender: F Storm Sash Maker: TRUE : 1930 Requested By: Serjio Dowell Order Number: [id number] Reading MD: Bobby Felix Measurements Intervals [place] Rate: 72 P: OR: 0 QRS: 89 QRSD: 80 T: 120 QT: 412 QTc: 436 Interpretive Statements ATRIAL FIBRILLATION NONSPECIFIC ST & T-WAVE ABNORMALITY Electronically Signed On 04-24-2018 9:16:58 EDT by Bobby Felix
--- NOTE | 2018-04-24 10:44 | Event Note ---
Date of Encounter: 04/24/18 Time of Encounter: 09:10 I examined this patient and my medical decision-making was reviewed with the Resident Physician. I agree with the documented findings, disposition and treatment plan as described with any changes as documented below. Patient feels much better today. Has had good response to IV Lasix. Shortness of breath is improving. No chest pain or palpitations. Having good urine output. General appearance: Present: cooperative, A&O X 3, answers questions appropriately - ENT mucous membranes are moist - Neck Neck exam general surgery: Present: supple, trachea midline. Absent: lymphadenopathy - Respiratory Respiratory exam: Present: Normal breath sounds. Absent: accessory muscle use, rales, rhonchi - Cardiovascular Cardiovascular exam: Present: RRR, +S1, +S2. Absent: diastolic murmur, gallop, rubs, systolic murmur - GI/Abdominal GI/Abdominal exam: Present: normal bowel sounds, soft, no peritoneal signs. Absent: distended, tenderness - Extremities Exam Extremities exam: Present: warm, radial pulses palpable and symmetrical, pedal edema. Absent: calf tenderness, cyanotic, - Neurological Exam Neurological exam: Present: alert, oriented X3, no focal deficits. Absent: facial droop, speech deficit Congestive heart failure: Acute on chronic-likely combined. Continue IV Lasix. Monitor urine output closely. Awaiting 2-D echocardiogram results. Chronic atrial fibrillation: Rate controlled. On anticoagulation. INR is therapeutic. Essential hypertension: Well controlled. Continue current medications. Hyponatremia: Improved. Sodium 131 today.
--- NOTE | 2018-04-24 16:58 | Internal Med Progress Note ---
<SondraMaria L Oanh - Last Filed: 04/24/18 17:24> Hospitalist Progress Note - Encounter Date of Encounter: 04/24/18 Time of Encounter: 09:45 - Subjective Interval History: Today, hospital day 1, Mrs. Pierce states that her shortness of breath is improving. She states that she is comfortably able to take a deep breath, and feels back to baseline. She also says that her leg edema has decreased back to baseline. She admits to decreased appetite, which has been chronic since being on chemotherapy for B cell lymphoma. She denies chest pain, cough, fever, chills, nausea, vomiting, dizziness, abdominal pain, diarrhea, constipation, frequency, dysuria. She states that she is able to lay flat as well. - Exam Vitals: Temp Pulse Resp BP Pulse Ox 98.1 F 58 15 106/59 96 04/24/18 15:55 04/24/18 15:55 04/24/18 15:55 04/24/18 15:55 04/24/18 15:55 Exam: General: Resting comfortably, in no acute distress, AAOx3, pleasant HEENT: Normocephalic, atraumatic, EOMI, PERRL, mucus membranes moist. Neck soft , supple, trachea midline, no cervical lymphadenopathy. Cardio: RRR, no murmurs, rubs or gallops. Normal S1, S2. No carotid bruits. Pulmonary: Diffuse wheezes bilaterally, no rales or rhonchi. No accessory respiratory muscle use. Abdomen: Soft, non tender, non distended, normal bowel sounds, no guarding, rebound or rigidity. No CVA or suprapubic tenderness. Extremities: Radial and dorsal pedis pulses 2+ and symmetrical, normal capillary refill, no clubbing. No peripheral edema or calf tenderness. Neuro: CN 2-12 intact, no focal deficits. Psych: Normal mood and affect, answers questions appropriately - Assessment and Plan (1) CHF (congestive heart failure) Current Visit: Yes Status: Acute Assessment and Plan: Presented with shortness of breath, cough and bilateral lower extremity edema. CXR 04/23/18: Mild pulmonary edema ECHO 04/24/18: LVEF 55%, indeterminate diastolic function, mild aortic and tricuspid regurgitation, moderate pulmonary hypertension. Dilated IVC transition from IV to PO lasix, 40 mg BID. decrease metoprolol from 25 mg to 12.5 mg qd. (2) Large B-cell lymphoma Current Visit: Yes Status: Acute Assessment and Plan: Currently on chemotherapy for large B cell lymphoma. Will resume therapy upon discharge. (3) Atrial fibrillation Current Visit: No Status: Chronic Assessment and Plan: Rate currently controlled with metoprolol Continue warfarin and aspirin for anticoagulation. (4) Hyponatremia Current Visit: Yes Status: Acute Assessment and Plan: Chronic, improving Na was 125 on admission, has now increased to 131 after diuresis with lasix. Review of previous lab results have shown Na in the 130's for past 2 years. Continue to monitor Na to ensure it continues to increase. (5) Supratherapeutic INR Current Visit: Yes Status: Acute Assessment and Plan: Resolving, INR 4.0 on admission, is now at 3.0. Continue to monitor and continue to dose warfarin to allow for therapeutic level of 2-3. DVT Prophylaxis: On warfarin for anticoagulation for chronic atrial fibrillation. - Time Spent with Patient Total time spent is greater than 50% in coordination of care (as documented) at patient's floor/unit and/or counseling patient: Greater than 35 minutes Plan of Care Discussed with: patient Internal Medicine: Result - Labs CBC & Chem 7: 04/23/18 14:00 04/24/18 04:36 Labs: BMP 04/24/18 04:36 Sodium 131 L Potassium 3.5 Chloride 98 Carbon Dioxide 25 BUN 8 Creatinine 0.49 L Glucose 111 H Calcium 8.4 L Liver Function 04/24/18 Range/Units 04:36 Total Bilirubin 1.2 H (0.3-1.0) mg/dL AST 26 (13-39) Units/L ALT 40 (7-52) Units/L Alkaline Phosphatase 64 (34-104) Units/L Albumin 3.5 (3.5-5.7) g/dL - ABG Interpretation ABG results: PT/INR, D-dimer PT 34.3 Seconds (9.4-12.1) H 04/24/18 04:36 - Impressions Impressions Echocardiogram 04/24/18 16:29 Impressions: LVEF 55%. Normal LV chamber size, wall thickness and function. Indeterminate diastolic function. Normal right ventricular structure and function. Mild aortic regurgitation. Mild tricuspid regurgitation. Moderate pulmonary hypertension. Estimated RVSP is 46-51 mmHg. Left Ventricular Wall Motion: Rest Echo Findings All wall segments showed normal motion. Findings: Study Quality * Technically adequate exam. ECG Findings * Atrial fibrillation. Left Ventricle * LVEF 55%. * Normal LV chamber size, wall thickness and function. * Indeterminate diastolic function. Right Ventricle * Normal right ventricular structure and function. Left Atrium * Moderately dilated left atrium. Right Atrium * Moderately dilated right atrium. Aortic Valve * Trileaflet aortic valve. * Mild aortic regurgitation. * No aortic stenosis. Mitral Valve * Normal mitral valve structure and function. * Trace mitral regurgitation. * No mitral stenosis. Tricuspid Valve * Normal tricuspid valve structure. * Mild tricuspid regurgitation. * Moderate pulmonary hypertension. * Estimated RVSP is 46-51 mmHg. * Estimated RA pressure is 5-10 mmHg. Pulmonic Valve * Normal pulmonic valve structure and function. * Trace pulmonic regurgitation. Aorta * Normally sized aortic root. Pericardium * The pericardium appears normal. IVC * The IVC is dilated. * < 50% respiratory change. Pulmonary Artery * Normal visualized portions of the main pulmonary artery. Consult Discharge Plan - Plan Referrals: Aidan Barrera MD [Primary Care Provider] - Mario Colon MD [Family Provider] - <Demetria Terrazas - Last Filed: 04/24/18 18:58> Hospitalist Progress Note - Encounter Date of Encounter: 04/24/18 Time of Encounter: 09:15 - Exam Vitals: Temp Pulse Resp BP Pulse Ox 98.1 F 58 15 106/59 96 04/24/18 15:55 04/24/18 15:55 04/24/18 15:55 04/24/18 15:55 04/24/18 15:55 - Time Spent with Patient Total time spent is greater than 50% in coordination of care (as documented) at patient's floor/unit and/or counseling patient: Internal Medicine: Result - Labs CBC & Chem 7: 04/23/18 14:00 04/24/18 04:36 Labs: BMP 04/24/18 04:36 Sodium 131 L Potassium 3.5 Chloride 98 Carbon Dioxide 25 BUN 8 Creatinine 0.49 L Glucose 111 H Calcium 8.4 L Liver Function 04/24/18 Range/Units 04:36 Total Bilirubin 1.2 H (0.3-1.0) mg/dL AST 26 (13-39) Units/L ALT 40 (7-52) Units/L Alkaline Phosphatase 64 (34-104) Units/L Albumin 3.5 (3.5-5.7) g/dL - ABG Interpretation ABG results: PT/INR, D-dimer PT 34.3 Seconds (9.4-12.1) H 04/24/18 04:36 - Impressions Impressions Echocardiogram 04/24/18 16:29 Impressions: LVEF 55%. Normal LV chamber size, wall thickness and function. Indeterminate diastolic function. Normal right ventricular structure and function. Mild aortic regurgitation. Mild tricuspid regurgitation. Moderate pulmonary hypertension. Estimated RVSP is 46-51 mmHg. Left Ventricular Wall Motion: Rest Echo Findings All wall segments showed normal motion. Findings: Study Quality * Technically adequate exam. ECG Findings * Atrial fibrillation. Left Ventricle * LVEF 55%. * Normal LV chamber size, wall thickness and function. * Indeterminate diastolic function. Right Ventricle * Normal right ventricular structure and function. Left Atrium * Moderately dilated left atrium. Right Atrium * Moderately dilated right atrium. Aortic Valve * Trileaflet aortic valve. * Mild aortic regurgitation. * No aortic stenosis. Mitral Valve * Normal mitral valve structure and function. * Trace mitral regurgitation. * No mitral stenosis. Tricuspid Valve * Normal tricuspid valve structure. * Mild tricuspid regurgitation. * Moderate pulmonary hypertension. * Estimated RVSP is 46-51 mmHg. * Estimated RA pressure is 5-10 mmHg. Pulmonic Valve * Normal pulmonic valve structure and function. * Trace pulmonic regurgitation. Aorta * Normally sized aortic root. Pericardium * The pericardium appears normal. IVC * The IVC is dilated. * < 50% respiratory change. Pulmonary Artery * Normal visualized portions of the main pulmonary artery. - Attending Attestation I examined this patient and my medical decision-making was reviewed with the Resident Physician. I agree with the documented findings, disposition and treatment plan as described with any changes as documented below. Patient feels much better today. Has had good response to IV Lasix. Shortness of breath is improving. No chest pain or palpitations. Having good urine output. General appearance: Present: cooperative, A&O X 3, answers questions appropriately - ENT mucous membranes are moist - Neck Neck exam general surgery: Present: supple, trachea midline. Absent: lymphadenopathy - Respiratory Respiratory exam: Present: Normal breath sounds. Absent: accessory muscle use, rales, rhonchi - Cardiovascular Cardiovascular exam: Present: RRR, +S1, +S2. Absent: diastolic murmur, gallop, rubs, systolic murmur - GI/Abdominal GI/Abdominal exam: Present: normal bowel sounds, soft, no peritoneal signs. Absent: distended, tenderness - Extremities Exam Extremities exam: Present: warm, radial pulses palpable and symmetrical, pedal edema. Absent: calf tenderness, cyanotic, - Neurological Exam Neurological exam: Present: alert, oriented X3, no focal deficits. Absent: facial droop, speech deficit Congestive heart failure: Acute on chronic-likely combined. Continue IV Lasix. Monitor urine output closely. Awaiting 2-D echocardiogram results. Chronic atrial fibrillation: Rate controlled. On anticoagulation. INR is therapeutic. Essential hypertension: Well controlled. Continue current medications. Hyponatremia: Improved. Sodium 131 today. <Maria L Amaro - Last Filed: 04/24/18 17:24> (1) CHF (congestive heart failure) Qualifiers: Heart failure type: unspecified Heart failure chronicity: acute Qualified Code(s): I50.9 - Heart failure, unspecified (3) Atrial fibrillation Qualifiers: Atrial fibrillation type: chronic Qualified Code(s): I48.2 - Chronic atrial fibrillation
[2018-04-24] MEDS ORDERED: Warfarin perPT PO PRN (18:00)
[2018-04-24] MEDS ORDERED: *HR* Warfarin 2.5 MG TABLET PO ONE (18:00)
[2018-04-24] MEDS: Furosemide 40 MG TABLET PO SCH (23:02)
[2018-04-25 04:30] LABS: INR 1.7; Prothrombin Time 18.6 Seconds (9.4-12.1)
[2018-04-25] MEDS: Furosemide 40 MG TABLET PO SCH ×2 (08:40→17:40)
[2018-04-25] MEDS: Aspirin Enteric Coated 81 MG Tablet PO SCH (08:40)
[2018-04-25] MEDS ORDERED: Metoprolol XL (24 HR) Succ 25 MG TAB.ER.24H PO SCH (09:00)
[2018-04-25] MEDS ORDERED: Isovue-370 500 ML INFUS..BTL IV ONE (10:35)
--- NOTE | 2018-04-25 14:56 | Discharge Summary ---
<Maria L Amaro - Last Filed: 04/25/18 16:25> - NOTES TO OUTPATIENT PROVIDER Notes to Outpatient Provider: Started on lasix 40 mg qd. Please do daily weights. Increased lisinopril to 10 mg qd. Decreased metoprolol to 12.5 mg qd. Bridging coumadin with lovenox. Please follow up with anticoagulation clinic in 2-3 days. Orders not resulted at time of discharge: Pending orders 04/25/18 10:36 EV venous imaging LE BI Routine 04/26/18 04:00 INR/PT [Prothrombin Time INR] [COAG] AM 0400 04/27/18 04:00 INR/PT [Prothrombin Time INR] [COAG] AM 0400 Date of Encounter: 04/25/18 Time of Encounter: 08:00 - Discharge Diagnosis (1) CHF (congestive heart failure) Priority: Primary Status: Acute Qualifiers: Heart failure type: unspecified Heart failure chronicity: acute on chronic Qualified Code(s): I50.9 - Heart failure, unspecified (2) Large B-cell lymphoma Priority: Secondary Status: Acute (3) Atrial fibrillation Priority: Secondary Status: Chronic Qualifiers: Atrial fibrillation type: chronic Qualified Code(s): I48.2 - Chronic atrial fibrillation (4) Hyponatremia Priority: Secondary Status: Acute (5) Supratherapeutic INR Priority: Secondary Status: Acute Assessment and Plan: Currently bridging back to therapeutic coumadin INR of 2-3 using 60 mg lovenox q12. Follow up to ensure coumadin back in therapeutic range in 2-3 days. (6) Dyspnea Priority: Secondary Status: Acute Qualifiers: Dyspnea type: shortness of breath Qualified Code(s): R06.02 - Shortness of breath; R06.00 - Dyspnea, unspecified; R06.01 - Orthopnea Hospital course: Ms. Pierce is a 87 year old female who presented on 04/23/19 for shortness of breath which had been increasing over the past week, cough, and bilateral lower extremity edema. Past medical history of congestive heart failure, large B cell lymphoma, atrial fibrillation, transient ischemic attack, hypertension, deep vein thrombosis. Chest x-ray showed mild pulmonary edema. EKG showed atrial fibrillation and was compared to and similar to past EKG from 02/2017. ECHO was performed 04/24/18 which showed LVEF 55% and moderate pulmonary hypertension. These results were compared with previous ECHO from 10/2016, at that time LVEF was 50% and no pulmonary hypertension. She was found to have pulmonary edema, hyponatremia, and supratherapeutic INR of 4.0 from coumadin therapy for atrial fibrillation. She was treated with lasix in an attempt to correct fluid overload. This also brought her sodium level back to her baseline as reviewed on previous lab results. On 04/25/18, she complained of bilateral calf pain described as "dunia horse". Frantz sign was performed and positive. She underwent CT angiogram and bilateral lower extremity ultrasound to rule out deep vein thrombosis and pulmonary embolism. CT angiogram found no evidence of pulmonary embolism. The report did describe that pulmonary nodules / masses seen on previous exams were showing improvement in size consistent with positive response to therapy for large B cell lymphoma as well as no new masses or nodules seen. Doppler ultrasound of bilateral lower extremities pending. Discharge discussed with: patient - Time Spent with Patient Total time spent providing and/or coordinating discharge services: Greater than 30 minutes (36 minutes) - Discharge Medications Prescriptions: Enoxaparin [Lovenox] 60 mg SQ Q12HR #10 syr Furosemide [Lasix] 40 mg PO DAILY #30 tablet Lisinopril 10 mg PO DAILY #30 tablet Metoprolol XL (24 HR) Succ [Toprol Xl] 12.5 mg PO DAILY #30 tab.er.24h Home Medications: Aspirin Enteric Coated [Aspirin EC] 81 mg PO DAILY 03/11/17 [History] Atorvastatin [Lipitor] 40 mg PO HS #30 tablet 03/18/17 [Rx] Warfarin Sodium 5 mg PO SUMOWEFR 06/15/17 [History] Warfarin [Coumadin] 2.5 mg PO TUTHSA 06/15/17 [History] Enoxaparin [Lovenox] 60 mg SQ Q12HR syringe 04/25/18 [Rx] Enoxaparin [Lovenox] 60 mg SQ Q12HR #10 syr 04/25/18 [Rx] Furosemide [Lasix] 40 mg PO DAILY #30 tablet 04/25/18 [Rx] Lenalidomide [Revlimid] 15 mg PO DAILY #21 capsule 04/25/18 [Rx] Lisinopril 10 mg PO DAILY #30 tablet 04/25/18 [Rx] Metoprolol XL (24 HR) Succ [Toprol Xl] 12.5 mg PO DAILY #30 tab.er.24h 04/25/18 [Rx] Allergies/Adverse Reactions: 3 Allergy/AdvReac Type Severity Reaction Status Date / Time rivaroxaban [From Xarelto] Allergy Hallucinati Verified 04/11/18 08:27 ng Tetanus Vaccines and Toxoid Allergy Hives Verified 04/11/18 08:27 [Tetanus Vaccines & Toxoid] alprazolam [From Xanax] AdvReac Hallucinati Verified 04/11/18 08:27 ng apixaban [From Eliquis] AdvReac Hallucinati Verified 04/11/18 08:27 ng codeine AdvReac Nausea Verified 04/11/18 08:27 Date of admission: 04/23/18 16:52 Primary care physician: Aidan Barrera MD Discharging clinician: Maria L Amaro Anticipated date of discharge: 04/25/18 - Constitutional Vitals: Temp Pulse Resp BP Pulse Ox 98.1 F 80 16 137/59 98 04/25/18 11:54 04/25/18 11:54 04/25/18 11:54 04/25/18 11:54 04/25/18 11:54 General appearance: Present: cooperative, A&O X 3, pleasant, answers questions appropriately - Head Head exam: Present: atraumatic, normocephalic - Eye Eye exam: Present: PERRL, conjuntiva pink, sclera anicteric. Absent: conjunctival injection Pupils: Present: PERRL - ENT ENT exam: Present: normal exam, TM's normal bilaterally - Neck Neck exam general surgery: Present: normal inspection, supple, trachea midline. Absent: lymphadenopathy, tenderness - Expanded Neck Exam Neck exam: Absent: carotid bruit, tenderness, tracheal deviation - Respiratory Respiratory exam: Present: CTAB. Absent: accessory muscle use, rales, rhonchi, wheezes - Cardiovascular Cardiovascular exam: Present: irregular rhythm, +S1, +S2. Absent: diastolic murmur, gallop, RRR, rubs, systolic murmur Additional comments: irregular rhythm consistent with atrial fibrillation - Expanded Cardiovascular Exam Peripheral pulses: 2+: Radial (L), Radial (R), Dorsalis Pedis (L) PM, Dorsalis Pedis (R) PM - GI/Abdominal GI/Abdominal exam: Present: normal bowel sounds, soft, no peritoneal signs. Absent: distended, guarding, rebound, rigid, tenderness - Extremities Exam Extremities exam: Present: calf tenderness, normal capillary refill. Absent: pedal edema Additional comments: No edema or erythema of calves. Positive Frantz's sign bilaterally Dorsal pedis pulses 2+ - Neurological Exam Neurological exam: Present: CN II-XII intact, oriented X3, no focal deficits. Absent: pronater drift, facial droop, speech deficit - Psychiatric Psychiatric exam: Present: normal affect, normal mood - Patient Status Disposition: Home, Self-Care Condition: Good Functional capacity at discharge: independent ambulation Overall status at discharge: patient is progressing back to baseline - Discharge Instructions Follow Up With: Aidan Barrera MD [Primary Care Provider] - (please call tomorrow and make a follow up appointment for 7-10 days ) - Diet and Activity Activity: increase activity as tolerated Diet: advance to your usual diet <Niels Lam - Last Filed: 04/25/18 19:12> Orders not resulted at time of discharge: Pending orders 04/25/18 10:36 EV venous imaging LE BI Routine 04/26/18 04:00 INR/PT [Prothrombin Time INR] [COAG] AM 0400 04/27/18 04:00 INR/PT [Prothrombin Time INR] [COAG] AM 0400 Date of Encounter: 04/25/18 - Discharge Diagnosis (1) CHF (congestive heart failure) Status: Resolved Qualifiers: Heart failure type: diastolic Heart failure chronicity: acute on chronic Qualified Code(s): I50.33 - Acute on chronic diastolic (congestive) heart failure (2) Hyponatremia Priority: Secondary Status: Chronic (3) Supratherapeutic INR Status: Resolved (4) Atrial fibrillation Status: Chronic Qualifiers: Atrial fibrillation type: chronic Qualified Code(s): I48.2 - Chronic atrial fibrillation (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 Pierce is a 87 year old female - Time Spent with Patient Total time spent providing and/or coordinating discharge services: 37min Date of admission: 04/23/18 16:52 Primary care physician: Aidan Barrera MD - Constitutional Vitals: Temp Pulse Resp BP Pulse Ox 98.1 F 80 16 137/59 98 04/25/18 11:54 04/25/18 11:54 04/25/18 11:54 04/25/18 11:54 04/25/18 11:54 - Attending Attestation I examined this patient and my medical decision-making was reviewed with the Resident Physician on 04/25/18. I agree with the documented findings, disposition and treatment plan as described except to the extent set forth below. Ms Pierce has been admitted for acute exac CHF. She has improved and her breathing is at baseline. She had some calf tenderness and due to risk with her meds CT and venous duplex ordered. She is ready for discharge. Exam Alert. Comfortable. Heart reg Lungs clear Abd soft Plan D/C home today. Follow up with PCP and Dr. Pittman.
[2018-04-25] MEDS: Isosorbide MONOnitrate (24 HR) 30 MG TAB.ER.24H PO SCH (15:20)
[2018-04-25 16:29] VITALS: BP 122/82
[2018-04-25] MEDS ORDERED: *HR* Enoxaparin 60 MG/0.6 ML SYRINGE SQ SCH (18:00)
[2018-04-25] MEDS ORDERED: *HR* Warfarin 5 MG TABLET PO ONE (18:00)
== END 2018-04-25 20:32 | disposition home or self-care (01) | DRG 292 ==
LOC: EMEROO 13:41 → 2NENU 13:41 → OBSVTOIN 16:52 → SUATTDRO 16:52 → 2NENU 17:09
PROVIDERS: ADMIT Internal Medicine; ATTEND Internal Medicine

== ENCOUNTER 2018-04-27 13:06 | Inpatient (IN) ==
[2018-04-27] MEDS ORDERED: 0.9 % Sodium Chloride 1,000 ML IVC ONE (13:37)
[2018-04-27] MEDS ORDERED: Ondansetron 4 MG/2 ML VIAL IVP ONE ×2 (13:37→16:27)
[2018-04-27 14:03] LABS: Basophils # 0.1 K/mcL (0.0-0.2); Basophils % 2.3 %; Eosinophils % 0.8 %; Hemoglobin 12.9 g/dL (11.5-15.4); Immature Granulocytes % 0.6 % (0-4); Lymphocytes # 0.8 K/mcL (0.6-4.6); Lymphocytes % 16.6 %; Mean Corpuscular HGB Conc 34.9 g/dL (31.6-35.5); Mean Corpuscular Hemoglobin 27.2 pg (28.0-33.3); Mean Corpuscular Volume 77.9 fL (83.0-100.0); Mean Platelet Volume 9.3 fL (9.4-12.4); Monocytes # 0.9 K/mcL (0.0-1.3); Monocytes % 18.7 %; Platelet Count 225 K/mcL (140-400); Red Blood Count 4.75 M/mcL (3.82-4.97); Red Cell Distribution Width 15.6 % (11.5-14.5)
[2018-04-27 14:20] LABS: INR 1.8; Prothrombin Time 20.6 Seconds (9.4-12.1)
[2018-04-27 14:20] LABS: Troponin I < 0.03 ng/mL (< 0.04)
[2018-04-27] MEDS ORDERED: Isovue-370 500 ML INFUS..BTL IV ONE (14:23)
[2018-04-27 14:24] LABS: Platelet Estimate Normal (Normal)
[2018-04-27 14:40] LABS: Alanine Aminotransferase 23 Units/L (7-52); Albumin 3.8 g/dL (3.5-5.7); Albumin/Globulin Ratio 1.6 (1.1-2.2); Alkaline Phosphatase 66 Units/L (34-104); Aspartate Amino Transferase 19 Units/L (13-39); BUN/Creatinine Ratio 26 (6-26); Bilirubin,Direct 0.3 mg/dL (0.0-0.2); Bilirubin,Total 1.3 mg/dL (0.3-1.0); Blood Urea Nitrogen 15 mg/dL (8-23); Calcium 8.6 mg/dL (8.6-10.3); Carbon Dioxide 23 mEq/L (23-29); Chloride 82 mEq/L (98-107); Globulin 2.4 g/dL (2.4-3.5); Glucose 179 mg/dL (70-105); Lipase 32 Units/L (11-82); Osmolality,Calculated 249 (280-300); Potassium 3.6 mEq/L (3.5-5.1); Sodium 117 mEq/L (136-145); Total Protein 6.2 g/dL (6.4-8.9); eGFR For Non-African Americans > 60 (> 60)
[2018-04-27 15:37] LABS: Bilirubin,Urine Negative (Negative); Blood,Urine Small (Negative); Clarity,Urine Clear (Clear); Color,Urine Yellow (Yellow); Glucose,Urine (UA) Normal (Normal); Ketones,Urine Negative (Negative); Leukocyte Esterase,Urine Negative (Negative); Nitrite,Urine Negative (Negative); Protein,Urine Negative (Neg-Trace); Specific Gravity,Urine 1.013 (1.010-1.025); Urobilinogen,Urine Normal (Normal)
[2018-04-27 15:38] LABS: Bacteria,Urine None Seen per hpf (None-Few); Hyaline Casts,Urine None Seen per lpf (None-Few); Squamous Epithelial Cell,Urine Many per lpf (None-Few); WBC,Urine 0-3 per hpf (0-3)
[2018-04-27 17:45] LABS: BUN/Creatinine Ratio 25 (6-26); Blood Urea Nitrogen 13 mg/dL (8-23); Calcium 8.4 mg/dL (8.6-10.3); Carbon Dioxide 25 mEq/L (23-29); Chloride 84 mEq/L (98-107); Glucose 148 mg/dL (70-105); Osmolality,Calculated 253 (280-300); Potassium 3.5 mEq/L (3.5-5.1); Sodium 120 mEq/L (136-145); eGFR For Non-African Americans > 60 (> 60)
[2018-04-27 17:59] LABS: Thyroid Stimulating Hormone 2.875 mcIU/mL (0.340-5.600)
[2018-04-27] MEDS ORDERED: Naloxone 0.4 MG/ML INJ IVP PRN (18:07)
--- NOTE | 2018-04-27 18:29 | Internal Med History&Physical ---
<Breonna Ceja Cem - Last Filed: 04/27/18 22:13> Date of Encounter: 04/27/18 Time of Encounter: 18:26 Internal Medicine - H&P: HPI Chief complaint: Nausea, vomiting and weakness Admitted From: Home Plans for Post Hospital Care: Home History of present illness: Ms. Pierce is a 87 year old female with history of hypertension, lymphoma, afib , and dvt. The patient had recent admission for hyponatremia and HF. Warfarin and lovenox bridge was started at that time. Persistent nausea and vomiting at home. The Ct showed: Cholelithiasis without CT evidence of cholecystitis, and small hiatal hernia. Patient currently in atrial fibrillation on telemetry, rate is controlled. Na is 117, nephrology was consulted by the ED. Will get BMP q4h. Currently Na is 120, will get recheck at 2200. IVF x1 liter tonight. Creat is 0.52, and bun is 13. The GFR is >60. CXR showed: Central congestion without overt pulmonary edema, bibasilar atelectasis, and small left pleural effusion versus left pleural thickening. Will start IS. CT of the head was negative. Past Med Surg Social Fam HX - Past Medical History Medical history: atrial fibrillation, cancer, CHF, DVT, hypertension, other Additional medical history: Lymphoma Cancer Psychiatric history: anxiety - Past Surgical History Surgical History: breast surgery, cancer surgery, herniorrhaphy, GLADIS/BSO, other Additional surgical history: eye laser - kidney surgery - colonoscopy - Social History Smoking Status: Never smoker Smokeless Tobacco Status: No Alcohol use: none Drug use: none - Family History Brother Living Status: Hx Family Cardiac Disorders: Yes (heart surgery) Father Living Status: Hx Family Cardiac Disorders: Yes (pacemaker) Mother Hx Family Cardiac Disorders: Yes (pacemaker) Sister Hx Family Cancer: Yes (colon cancer) Hx Family Endocrine Disorder: Yes (diabetes) Internal Medicine - H&P: Meds Aspirin Enteric Coated [Aspirin EC] 81 mg PO DAILY 03/11/17 [History] Warfarin Sodium 5 mg PO SUMOWEFR 06/15/17 [History] Warfarin [Coumadin] 2.5 mg PO TUTHSA 06/15/17 [History] Enoxaparin [Lovenox] 60 mg SQ Q12HR #10 syr 04/25/18 [Rx] Lisinopril 10 mg PO DAILY #30 tablet 04/25/18 [Rx] Lenalidomide [Revlimid] 15 mg PO DAILY 04/28/18 [History] Furosemide [Lasix] 20 mg PO DAILY #30 tablet 04/30/18 [Rx] 3 Allergy/AdvReac Type Severity Reaction Status Date / Time rivaroxaban [From Xarelto] Allergy Hallucinati Verified 04/27/18 13:19 ng Tetanus Vaccines and Toxoid Allergy Hives Verified 04/27/18 13:19 [Tetanus Vaccines & Toxoid] alprazolam [From Xanax] AdvReac Hallucinati Verified 04/27/18 13:19 ng apixaban [From Eliquis] AdvReac Hallucinati Verified 04/27/18 13:19 ng codeine AdvReac Nausea Verified 04/27/18 13:19 All Systems PM: A 10-system review of systems was performed and is negative for pertinent findings except as documented above in the HPI. - Constitutional Constitutional: weakness, no chills, no fever(s), no night sweats - EENT Eyes: no change in vision, no discharge, no pain, no photophobia Ears: no ear discharge, no ear pain, no tinnitus Nose, mouth and throat: no dysphagia, no nasal discharge, no neck pain, no sore throat - Cardiovascular Cardiovascular ROS IM: no chest pain, no diaphoresis, no dyspnea, no lightheadedness, no palpitations, no syncope - Respiratory Respiratory: no cough, no dyspnea, no wheezing, no excessive phlegm production - Gastrointestinal Gastrointestinal: nausea, vomiting, no abdominal pain, no diarrhea, no hematemesis, no hematochezia, no melena - Genitourinary Genitourinary: no change in urinary stream, no dysuria, no flank pain, no hematuria - Musculoskeletal Musculoskeletal ROS IM: no numbness, no tingling - Integumentary Integumentary IM: no rash, no unusual bruising - Neurological Neurological ROS: no confusion, no convulsions, no focal weakness, no numbness, no tingling, no tremor(s) - Hematologic/Lymphatic Hematologic/Lymphatic: no easy bruising Internal Med - H&P Results - Labs CBC & Chem 7: 04/27/18 13:49 04/27/18 17:00 - Assessment and plan (1) Hyponatremia Status: Chronic Assessment and plan: Nephrology consulted Normal saline bolus in the ED Will give I liter normal saline overnight x 1 bag-Hx of CHF BMP at 2200 (2) Nausea & vomiting Status: Acute Assessment and plan: Zofran IV push every 6 when necessary Monitor I and O Monitor daily labs Qualifiers: Vomiting type: unspecified Vomiting Intractability: intractable Qualified Code(s): R11.2 - Nausea with vomiting, unspecified (3) Atrial fibrillation Status: Chronic Assessment and plan: Warfarin to be dosed by pharmacy Lovenox bridge Daily PT/INR Cardiac monitoring Qualifiers: Atrial fibrillation type: chronic Qualified Code(s): I48.2 - Chronic atrial fibrillation (4) Hypertension Status: Chronic Assessment and plan: Uncontrolled BP, likely elevated due to N and V Continue-lisinopril and metoprolol Qualifiers: Hypertension type: essential hypertension Qualified Code(s): I10 - Essential (primary) hypertension (5) Mild bibasilar atelectasis Status: Acute Assessment and plan: Incentive spirometry - Time Spent With Patient Total time spent is greater than 50% in coordination of care (as documented) at patient's floor/unit and/or counseling patient: 25 - 35 minutes - Constitutional Vitals: Temp Pulse Resp BP Pulse Ox 98.3 F 74 17 152/80 98 04/27/18 18:14 04/27/18 18:14 04/27/18 18:14 04/27/18 18:14 04/27/18 18:14 General appearance: Present: A&O X 3, answers questions appropriately - Head Head exam: Present: atraumatic, normocephalic - Eye Eye exam: Present: PERRL, conjuntiva pink, sclera anicteric Pupils: Present: PERRL - Neck Neck exam general surgery: Present: supple, trachea midline. Absent: lymphadenopathy - Respiratory Respiratory exam: Present: CTAB. Absent: accessory muscle use, rales, rhonchi, wheezes - Cardiovascular Cardiovascular exam: Present: RRR, +S1, +S2. Absent: diastolic murmur, gallop, rubs, systolic murmur - GI/Abdominal GI/Abdominal exam: Present: normal bowel sounds, soft, no peritoneal signs. Absent: distended, tenderness - Extremities Exam Extremities exam: Present: warm, radial pulses palpable and symmetrical. Absent : calf tenderness, cyanotic, pedal edema - Neurological Exam Neurological exam: Present: alert, CN II-XII intact, oriented X3, no focal deficits. Absent: pronater drift, facial droop, speech deficit - Skin Skin exam: Present: dry, intact <Nkadi,Anirudhkwuemek - Last Filed: 05/12/18 14:05> Date of Encounter: 05/12/18 Internal Medicine - H&P: HPI History of present illness: Ms. Pierce is a 88 year old female All Systems PM: A 10-system review of systems was performed and is negative for pertinent findings except as documented above in the HPI. - Constitutional Vitals: Temp Pulse Resp BP Pulse Ox 97.5 F L 56 15 119/57 97 04/30/18 07:02 04/30/18 07:02 04/30/18 07:02 04/30/18 07:02 04/30/18 07:02 Exam: done Internal Med - H&P Results - Labs CBC & Chem 7: 04/30/18 04:33 04/30/18 04:33 - Time Spent With Patient Total time spent is greater than 50% in coordination of care (as documented) at patient's floor/unit and/or counseling patient: - Attending Attestation I examined this patient and my medical decision-making was reviewed with nurse practitioner. I agree with the documented findings, disposition and treatment plan as described except to the extent set forth below. - Constitutional Vitals: Temp Pulse Resp BP Pulse Ox 97.5 F L 56 15 119/57 97 04/30/18 07:02 04/30/18 07:02 04/30/18 07:02 04/30/18 07:02 04/30/18 07:02
[2018-04-27] MEDS ORDERED: 0.9 % Sodium Chloride 1,000 ML IVC SCH (18:45)
[2018-04-27] MEDS: *HR* Enoxaparin 60 MG/0.6 ML SYRINGE SQ SCH (20:14)
[2018-04-27 23:26] LABS: BUN/Creatinine Ratio 22 (6-26); Blood Urea Nitrogen 11 mg/dL (8-23); Calcium 8.1 mg/dL (8.6-10.3); Carbon Dioxide 26 mEq/L (23-29); Chloride 89 mEq/L (98-107); Glucose 127 mg/dL (70-105); Osmolality,Calculated 251 (280-300); Potassium 3.6 mEq/L (3.5-5.1); Sodium 120 mEq/L (136-145); eGFR For Non-African Americans > 60 (> 60)
[2018-04-28 05:54] LABS: Basophils # 0.1 K/mcL (0.0-0.2); Basophils % 2.8 %; Eosinophils # 0.1 K/mcL (0.0-0.6); Eosinophils % 1.7 %; Hematocrit 35.7 % (35.3-44.9); Hemoglobin 12.4 g/dL (11.5-15.4); Immature Granulocytes % 0.6 % (0-4); Lymphocytes # 0.5 K/mcL (0.6-4.6); Lymphocytes % 13.5 %; Mean Corpuscular HGB Conc 34.7 g/dL (31.6-35.5); Mean Corpuscular Hemoglobin 27.6 pg (28.0-33.3); Mean Corpuscular Volume 79.5 fL (83.0-100.0); Monocytes # 0.9 K/mcL (0.0-1.3); Monocytes % 25.1 %; Platelet Count 207 K/mcL (140-400); Red Blood Count 4.49 M/mcL (3.82-4.97); Red Cell Distribution Width 15.6 % (11.5-14.5); Segmented Neutrophils % 56.3 %
[2018-04-28] MEDS: *HR* Enoxaparin 60 MG/0.6 ML SYRINGE SQ SCH (06:00)
[2018-04-28 06:07] LABS: INR 2.3; Prothrombin Time 25.5 Seconds (9.4-12.1)
[2018-04-28 06:11] LABS: BUN/Creatinine Ratio 18 (6-26); Blood Urea Nitrogen 9 mg/dL (8-23); Carbon Dioxide 25 mEq/L (23-29); Chloride 94 mEq/L (98-107); Glucose 110 mg/dL (70-105); Osmolality,Calculated 261 (280-300); Potassium 3.6 mEq/L (3.5-5.1); Sodium 126 mEq/L (136-145); eGFR For Non-African Americans > 60 (> 60)
[2018-04-28 06:14] LABS: Microcytosis Present (Not Present); Platelet Estimate Normal (Normal)
[2018-04-28] MEDS ORDERED: Furosemide 40 MG TABLET PO SCH (09:00)
[2018-04-28] MEDS ORDERED: Metoprolol XL (24 HR) Succ 25 MG TAB.ER.24H PO SCH (09:00)
[2018-04-28] MEDS: Aspirin Enteric Coated 81 MG Tablet PO SCH (09:40)
[2018-04-28] MEDS: 0.9 % Sodium Chloride 1,000 ML IVC SCH (11:57)
--- NOTE | 2018-04-28 14:01 | Internal Med Progress Note ---
<Jw Whitaker - Last Filed: 04/28/18 17:54> Hospitalist Progress Note - Encounter Date of Encounter: 04/28/18 Time of Encounter: 09:30 - Subjective Interval History: 87 year old F with PMHx of HTN, lymphoma on chemotherapy, afib, and HTN here for nausea and vomiting. Patient was recently admitted for hyponatremia and HF , and was instructed to see her doctor if she developed AMS or vomiting after discharge. Patient states her nausea began about 2 weeks ago, and she had an episode of emesis 2 nights ago. Patient states her emesis was non-bilious and non-bloody, and her nausea was worse after eating. Patient states her symptoms are resolved today. She denies POWERS, CP, SOB, numbness/tingling n/v/d. 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 She was on rituximab and was scheduled to start lenalidomide today. - Exam Vitals: Temp Pulse Resp BP Pulse Ox 97.2 F L 62 16 105/54 95 04/28/18 11:49 04/28/18 11:49 04/28/18 11:49 04/28/18 11:49 04/28/18 11:49 Exam: Gen: A&O x3, no acute distress HEENT: dry mucous membranes Heart: irregular, no murmurs appreciated Lungs: clear to auscultation bilaterally Abdomen: soft, non-tender, non-distended Extremities: no edema Vascular: diminished peripheral pulses bilaterally - Assessment and Plan (1) Hyponatremia Current Visit: Yes Status: Acute Assessment and Plan: Hypovolemic hyponatremia Na 124 Continue IV fluids Lasix was discontinued Sodium check every 6 hours Nephrology consulted Ordered urine sodium and osm, uric acid, cortisol, TSH, ACTH. Check Mg level in AM (2) Atrial fibrillation Current Visit: Yes Status: Chronic Assessment and Plan: Patient's HR 62 Patient on warfarin INR 2.3 today Continue IV fluids (3) Mild bibasilar atelectasis Current Visit: Yes Status: Acute Assessment and Plan: Incentive spirometry (4) Hypertension Current Visit: No Status: Chronic Assessment and Plan: Patient BP 147/74 Continue lisinopril (5) Nausea & vomiting Current Visit: Yes Status: Acute Assessment and Plan: Patient asymptomatic now Continue zofran DVT Prophylaxis: Warfarin - Time Spent with Patient Total time spent is greater than 50% in coordination of care (as documented) at patient's floor/unit and/or counseling patient: 25 - 35 minutes Plan of Care Discussed with: patient Internal Medicine: Result - Labs CBC & Chem 7: 04/28/18 05:40 04/28/18 16:45 Labs: Short CBC 04/28/18 Range/Units 05:40 WBC 3.6 L (4.3-11.1) K/mcL Hgb 12.4 (11.5-15.4) g/dL Hct 35.7 (35.3-44.9) % Plt Count 207 (140-400) K/mcL Neutrophils # 2.0 (1.6-8.9) K/mcL BMP 04/27/18 04/28/18 04/28/18 22:40 05:40 10:44 Sodium 120 L* 126 L 126 L Potassium 3.6 3.6 Chloride 89 L 94 L Carbon Dioxide 26 25 BUN 11 9 Creatinine 0.49 L 0.49 L Glucose 127 H 110 H Calcium 8.1 L 8.0 L - ABG Interpretation ABG results: PT/INR, D-dimer PT 25.5 Seconds (9.4-12.1) H 04/28/18 05:40 Consult Discharge Plan - Plan Referrals: Mario Colon MD [Family Provider] - Aidan Barrera MD [Primary Care Provider] - <Azul Pittman - Last Filed: 04/28/18 18:17> Hospitalist Progress Note - Encounter Date of Encounter: 04/28/18 - Exam Vitals: Temp Pulse Resp BP Pulse Ox 98.0 F 71 16 147/74 98 04/28/18 16:50 04/28/18 16:50 04/28/18 16:50 04/28/18 16:50 04/28/18 16:50 - Assessment and Plan (1) Hypertension Current Visit: No Status: Chronic (2) Atrial fibrillation Current Visit: Yes Status: Chronic (3) Hyponatremia Current Visit: Yes Status: Acute (4) Mild bibasilar atelectasis Current Visit: Yes Status: Acute (5) Nausea & vomiting Current Visit: Yes Status: Acute - Time Spent with Patient Total time spent is greater than 50% in coordination of care (as documented) at patient's floor/unit and/or counseling patient: Internal Medicine: Result - Labs CBC & Chem 7: 04/28/18 05:40 04/28/18 16:45 Labs: BMP 04/28/18 16:45 Sodium 124 L - ABG Interpretation ABG results: PT/INR, D-dimer PT 25.5 Seconds (9.4-12.1) H 04/28/18 05:40 - Attending Attestation I examined this patient and my medical decision-making was reviewed with the Resident Physician Dr. Whitaker. I agree with the documented findings, disposition and treatment plan as described except to the extent set forth below. Ms. 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 She was in severe hypoantremia. Today she is alert, awake and O x 3. Denied any CP / SOB. Gen: A, A< O x3 Chest: Diminished BS b/l heart: S1S2+ RRR No murmurs Abd: Soft NT a.p 1. Acute hyponatremia due to dehdyration hypovlemic d/c lasix started on gentle IV hydration Na q6hr goal of correction 0.5 meq/hr, not greater than 8-10 meq/day <Jw Whitaker S - Last Filed: 04/28/18 17:54> (2) Atrial fibrillation Qualifiers: Atrial fibrillation type: chronic Qualified Code(s): I48.2 - Chronic atrial fibrillation (4) Hypertension Qualifiers: Hypertension type: essential hypertension Qualified Code(s): I10 - Essential (primary) hypertension (5) Nausea & vomiting Qualifiers: Vomiting type: unspecified Vomiting Intractability: intractable Qualified Code(s): R11.2 - Nausea with vomiting, unspecified <Azul Pittman - Last Filed: 04/28/18 18:17> (1) Hypertension Qualifiers: Hypertension type: essential hypertension Qualified Code(s): I10 - Essential (primary) hypertension (2) Atrial fibrillation Qualifiers: Atrial fibrillation type: chronic Qualified Code(s): I48.2 - Chronic atrial fibrillation (5) Nausea & vomiting Qualifiers: Vomiting type: unspecified Vomiting Intractability: intractable Qualified Code(s): R11.2 - Nausea with vomiting, unspecified
--- NOTE | 2018-04-28 14:32 | Nephrology Consult Note ---
Date of Encounter: 04/28/18 Time of Encounter: 09:00 Assessment and Plan (1) Hyponatremia Current Visit: Yes Status: Chronic Likely hypovolemic hyponatremia from vomiting, diarrhea, and malnutrition. 87F with recent diagnosis of CHF now on lasix, on chemotherapy for lymphoma, presents with nausea and vomiting. BP = 105/54 despite fluid resuscitation. Na+ = 117 at ED and IVF was started with BMP Q4H. Serum osm = 247. K+ and HCO3 and glucose WNL Today, Na+ = 126 and uptrending. Patient appears dry. Suspect hypovolemic hypotonic hyponatremia. Will order urine sodium and osm, uric acid, cortisol, TSH, ACTH. Use of lasix likely also contributing to hypovolemia. Will hold for now. Ok to keep cardiac diet. daily weights and I/Os. (2) Nausea & vomiting Current Visit: Yes Status: Acute Per above. Zofran as needed for n/v. Qualifiers: Vomiting type: unspecified Vomiting Intractability: intractable Qualified Code(s): R11.2 - Nausea with vomiting, unspecified History of Present Illness - Reason for Consult Consult date: 04/28/18 Chronic Kidney Disease Requesting physician: William Arias - Chief Complaint Nausea and vomiting - History of Present Illness 87F PMHx HTN, lymphoma undergoing chemotherapy, A fib, DVT history, recent admission for hyponatremia and CHF exacerbation presents with persistent nausea and vomiting since her discharge on 04/25/18. At ED, CT demonstrated left renal thinning with scarring in the setting of prior infection/inflammation, without retroperitoneal adenopathy. BMP demonstrated Na+ = 117. IV fluids were administered. Zofran was also given. Today, patient reports improvement of nausea and vomiting. She reports increased intake of fluids and always feeling thirsty. She also admits to diarrhea. Also reports poor appetite and PO intake. She has not been admitted for hyponatremia before this week. Denies any recent swelling of the legs or signs of volume overload. Vomiting started 2 days ago. Denies syncope, blurry vision, CP, SOB. Does admit to starting lasix for approximately 1 month. Has been on Rituxan for lymphoma and scheduled to start lenolidomide today. Past Med Surg Social Fam HX - Past Medical History Medical history: atrial fibrillation, cancer, CHF, DVT, hypertension, other Additional medical history: Lymphoma Cancer Psychiatric history: anxiety - Past Surgical History Surgical History: breast surgery, cancer surgery, herniorrhaphy, GLADIS/BSO, other Additional surgical history: eye laser - kidney surgery - colonoscopy - Social History Smoking Status: Never smoker Smokeless Tobacco Status: No Alcohol use: none Drug use: none - Family History Brother Living Status: Hx Family Cardiac Disorders: Yes (heart surgery) Father Living Status: Hx Family Cardiac Disorders: Yes (pacemaker) Mother Hx Family Cardiac Disorders: Yes (pacemaker) Sister Hx Family Cancer: Yes (colon cancer) Hx Family Endocrine Disorder: Yes (diabetes) Medications and Allergies Aspirin Enteric Coated [Aspirin EC] 81 mg PO DAILY 03/11/17 [History] Warfarin Sodium 5 mg PO SUMOWEFR 06/15/17 [History] Warfarin [Coumadin] 2.5 mg PO TUTHSA 06/15/17 [History] Enoxaparin [Lovenox] 60 mg SQ Q12HR #10 syr 04/25/18 [Rx] Furosemide [Lasix] 40 mg PO DAILY #30 tablet 04/25/18 [Rx] Lisinopril 10 mg PO DAILY #30 tablet 04/25/18 [Rx] Metoprolol XL (24 HR) Succ [Toprol Xl] 12.5 mg PO DAILY #30 tab.er.24h 04/25/18 [Rx] Lenalidomide [Revlimid] 15 mg PO DAILY 04/28/18 [History] 3 Allergy/AdvReac Type Severity Reaction Status Date / Time rivaroxaban [From Xarelto] Allergy Hallucinati Verified 04/27/18 13:19 ng Tetanus Vaccines and Toxoid Allergy Hives Verified 04/27/18 13:19 [Tetanus Vaccines & Toxoid] alprazolam [From Xanax] AdvReac Hallucinati Verified 04/27/18 13:19 ng apixaban [From Eliquis] AdvReac Hallucinati Verified 04/27/18 13:19 ng codeine AdvReac Nausea Verified 04/27/18 13:19 Review of Systems All Systems: reviewed and no additional remarkable complaints except as stated Constitutional: as per HPI Nose, mouth and throat: as per HPI Cardiovascular: as per HPI Respiratory: as per HPI Gastrointestinal: as per HPI Musculoskeletal: as per HPI Neurological: as per HPI Exam - Vital Signs Vital signs: Initial Vital Signs Temp Pulse Resp BP Pulse Ox 97.6 F 67 16 148/77 97 04/27/18 13:09 04/27/18 13:09 04/27/18 13:09 04/27/18 13:09 04/27/18 13:09 - General Appearance Exam: Gen: A&O x3, no acute distress HEENT: dry mucous membranes Heart: irregular, no murmurs appreciated Lungs: clear to auscultation bilaterally Abdomen: soft, non-tender, non-distended Extremities: no edema Vascular: diminished peripheral pulses bilaterally Results - Lab Results 04/28/18 05:40 04/28/18 10:44 Most recent lab results Calcium 8.0 mg/dL (8.6-10.3) L 04/28/18 05:40 Urine Sodium 47.2 mEq/L 04/27/18 15:24 Consult Discharge Plan - Plan Referrals: Mario Colon MD [Family Provider] - Aidan Barrera MD [Primary Care Provider] -
--- NOTE | 2018-04-28 17:34 | Electrocardiograph Report ---
[address] [place] [address] Test Date: 2018-04-28 Pat Name: Loretta Pierce Department: 112 Room: 2A Gender: F [employer]: : 1930 Requested By: Arvind Larios Order Number: [id number] Reading MD: Niurka Purdy Measurements Intervals [place] Rate: 43 P: MI: 0 QRS: 62 QRSD: 91 T: 139 QT: 484 QTc: 430 Interpretive Statements ATRIAL FIBRILLATION WITH SLOW VENTRICULAR RESPONSE ST DEVIATION AND MODERATE T-WAVE ABNORMALITY, CONSIDER LATERAL ISCHEMIA Electronically Signed On 04-28-2018 17:32:53 EDT by Niurka Purdy
[2018-04-28] MEDS ORDERED: Warfarin perPT PO PRN (18:00)
[2018-04-28] MEDS ORDERED: *HR* Warfarin 2.5 MG TABLET PO ONE (18:00)
[2018-04-29] MEDS: 0.9 % Sodium Chloride 1,000 ML IVC SCH ×3 (02:08→19:34)
[2018-04-29 05:04] LABS: Basophils # 0.1 K/mcL (0.0-0.2); Eosinophils # 0.1 K/mcL (0.0-0.6); Eosinophils % 3.2 %; Hematocrit 35.3 % (35.3-44.9); Hemoglobin 12.1 g/dL (11.5-15.4); Immature Granulocytes % 0.6 % (0-4); Lymphocytes # 0.6 K/mcL (0.6-4.6); Lymphocytes % 17.3 %; Mean Corpuscular HGB Conc 34.3 g/dL (31.6-35.5); Mean Corpuscular Hemoglobin 27.5 pg (28.0-33.3); Mean Corpuscular Volume 80.2 fL (83.0-100.0); Mean Platelet Volume 8.9 fL (9.4-12.4); Monocytes # 0.9 K/mcL (0.0-1.3); Monocytes % 24.6 %; Platelet Count 198 K/mcL (140-400); Red Cell Distribution Width 15.7 % (11.5-14.5); Segmented Neutrophils % 50.3 %
[2018-04-29 05:10] LABS: INR 2.4; Prothrombin Time 26.6 Seconds (9.4-12.1)
[2018-04-29 05:13] LABS: Neutrophils # 1.8 K/mcL (1.6-8.9)
[2018-04-29 05:21] LABS: BUN/Creatinine Ratio 15 (6-26); Blood Urea Nitrogen 7 mg/dL (8-23); Calcium 8.1 mg/dL (8.6-10.3); Carbon Dioxide 27 mEq/L (23-29); Chloride 98 mEq/L (98-107); Glucose 92 mg/dL (70-105); Magnesium 1.7 mg/dL (1.6-2.6); Osmolality,Calculated 268 (280-300); Potassium 3.7 mEq/L (3.5-5.1); Sodium 130 mEq/L (136-145); eGFR For Non-African Americans > 60 (> 60)
[2018-04-29 05:25] LABS: Uric Acid 3.2 mg/dL (2.3-7.6)
[2018-04-29 05:36] LABS: Thyroid Stimulating Hormone 5.509 mcIU/mL (0.340-5.600)
[2018-04-29 06:37] LABS: Platelet Estimate Normal (Normal); Poikilocytosis 1+ (Not Present)
[2018-04-29 06:38] LABS: Anisocytosis 1+ (Not Present); Reactive Lymphocytes Present (Not Present)
[2018-04-29] MEDS: Aspirin Enteric Coated 81 MG Tablet PO SCH (08:00)
--- NOTE | 2018-04-29 09:22 | Internal Med Progress Note ---
<Maxi Yin - Last Filed: 04/29/18 09:20> Hospitalist Progress Note - Encounter Date of Encounter: 04/29/18 Time of Encounter: 09:20 - Subjective Interval History: Pt seen and examined. She states she has no issues with pain, breathing, nausea , or vomiting. States she is urinating without issues. - Exam Vitals: Temp Pulse Resp BP Pulse Ox 97.5 F L 69 16 128/74 96 04/29/18 07:24 04/29/18 07:24 04/29/18 07:24 04/29/18 07:24 04/29/18 07:24 Exam: Gen: NAD, alert, awake HEENT: NCAT, EOMI, neck supple, no LAD Cardiac: RRR, no murmur Lungs: CTAB, no wheeze, rales Abd: non tender Ext: no edema, erythema Neuro: appropriate affect, answers questions appropriately - Assessment and Plan (1) Hyponatremia Current Visit: Yes Status: Acute Assessment and Plan: Improving, sodium up to 130; likely secondary to diuretic use Nephrology consulted, recommended holding Lasix Continue gentle hydration with NS @ 75 ml/hr She states she has been on 40 mg Lasix for past month for swelling, would recommend decreasing to 20 or stopping completely depending on Nephro recs Recheck BMP in AM (2) Mild bibasilar atelectasis Current Visit: Yes Status: Acute Assessment and Plan: Breathing without issues for now Continue supplemental oxygen as needed and IS (3) Hypertension Current Visit: No Status: Chronic Assessment and Plan: Blood pressure well controlled Continue home Lisinopril (4) Atrial fibrillation Current Visit: Yes Status: Chronic Assessment and Plan: Currently rate controlled Continue Coumadin and restart home Toprol once she will be discharged given borderline bradycardia (5) DVT prophylaxis Current Visit: No Status: Acute Assessment and Plan: Continue Warfarin for Afib - Time Spent with Patient Total time spent is greater than 50% in coordination of care (as documented) at patient's floor/unit and/or counseling patient: Internal Medicine: Result - Labs CBC & Chem 7: 04/29/18 04:46 04/29/18 04:46 Labs: Short CBC 04/29/18 Range/Units 04:46 WBC 3.5 L (4.3-11.1) K/mcL Hgb 12.1 (11.5-15.4) g/dL Hct 35.3 (35.3-44.9) % Plt Count 198 (140-400) K/mcL Neutrophils # 1.8 (1.6-8.9) K/mcL BMP 04/28/18 04/28/18 04/29/18 16:45 22:07 04:46 Sodium 124 L 127 L 130 L Potassium 3.7 Chloride 98 Carbon Dioxide 27 BUN 7 L Creatinine 0.46 L Glucose 92 Calcium 8.1 L - ABG Interpretation ABG results: PT/INR, D-dimer PT 26.6 Seconds (9.4-12.1) H 04/29/18 04:46 Consult Discharge Plan - Plan Referrals: Mario Colon MD [Family Provider] - Aidan Barrera MD [Primary Care Provider] - <Azul Pittman - Last Filed: 04/29/18 14:40> Hospitalist Progress Note - Encounter Date of Encounter: 04/29/18 - Exam Vitals: Temp Pulse Resp BP Pulse Ox 98.2 F 53 15 118/58 95 04/29/18 11:07 04/29/18 11:07 04/29/18 11:07 04/29/18 11:07 04/29/18 11:07 - Assessment and Plan (1) Hypertension Current Visit: No Status: Chronic (2) Atrial fibrillation Current Visit: Yes Status: Chronic (3) Hyponatremia Current Visit: Yes Status: Acute (4) Mild bibasilar atelectasis Current Visit: Yes Status: Acute (5) Nausea & vomiting Current Visit: Yes Status: Acute - Time Spent with Patient Total time spent is greater than 50% in coordination of care (as documented) at patient's floor/unit and/or counseling patient: Internal Medicine: Result - Labs CBC & Chem 7: 04/29/18 04:46 04/29/18 04:46 Labs: Short CBC 04/29/18 Range/Units 04:46 WBC 3.5 L (4.3-11.1) K/mcL Hgb 12.1 (11.5-15.4) g/dL Hct 35.3 (35.3-44.9) % Plt Count 198 (140-400) K/mcL Neutrophils # 1.8 (1.6-8.9) K/mcL [facility] 04/28/18 04/28/18 04/29/18 16:45 22:07 04:46 Sodium 124 L 127 L 130 L Potassium 3.7 Chloride 98 Carbon Dioxide 27 BUN 7 L Creatinine 0.46 L Glucose 92 Calcium 8.1 L - ABG Interpretation ABG results: PT/INR, D-dimer PT 26.6 Seconds (9.4-12.1) H 04/29/18 04:46 - Attending Attestation I examined this patient and my medical decision-making was reviewed with the Resident Physician Dr. Yin. I agree with the documented findings, disposition and treatment plan as described except to the extent set forth below. Ms. 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 She was in severe hypoantremia. Today she is alert, awake and O x 3. Denied any CP / SOB. Gen: A, A, O x3 Chest: Diminished BS b/l heart: S1S2+ RRR No murmurs Abd: Soft NT a.p 1. Acute hyponatremia due to dehdyration hypovlemic Improving con holding lasix Cont gentle IV hydration goal of correction 0.5 meq/hr, not greater than 8-10 meq/day <Maxi Yin - Last Filed: 04/29/18 09:20> (3) Hypertension Qualifiers: Hypertension type: essential hypertension Qualified Code(s): I10 - Essential (primary) hypertension (4) Atrial fibrillation Qualifiers: Atrial fibrillation type: chronic Qualified Code(s): I48.2 - Chronic atrial fibrillation <Azul Pittman - Last Filed: 04/29/18 14:40> (1) Hypertension Qualifiers: Hypertension type: essential hypertension Qualified Code(s): I10 - Essential (primary) hypertension (2) Atrial fibrillation Qualifiers: Atrial fibrillation type: chronic Qualified Code(s): I48.2 - Chronic atrial fibrillation (5) Nausea & vomiting Qualifiers: Vomiting type: unspecified Vomiting Intractability: intractable Qualified Code(s): R11.2 - Nausea with vomiting, unspecified
--- NOTE | 2018-04-29 09:35 | Nephrology Progress Note ---
Date of Encounter: 04/29/18 Time of Encounter: 10:10 - Assessment and Plan (1) Hyponatremia Current Visit: Yes Status: Acute Slowly correcting at a safe, slow rate. Doing well and now at 130 (up from 120) , Continue current care. Will sign-off. Rec outpt BMP in about 3-7 days after discharge with outpatient nephro follow up in about 3-5 weeks. Please feel free to call or page me with any questions. (2) Hypertension Current Visit: No Status: Chronic Cont current care though would cont to hold the loop diuretic. Should avoid thiazide type diuretics going forward. Qualifiers: Hypertension type: essential hypertension Qualified Code(s): I10 - Essential (primary) hypertension Subjective Principal diagnosis: Hyponatremia Interval history: Pt was s/e earlier today. She did not affirm N/V/D or other major complaints. Objective - Vital Signs Vital signs: Vital Signs Temp Pulse Resp BP Pulse Ox 04/29/18 07:24 97.5 F L 69 16 128/74 96 04/29/18 04:10 98.1 F 61 16 124/78 97 04/29/18 00:43 97.8 F 66 16 126/60 95 04/28/18 16:50 98.0 F 71 16 147/74 98 Intake and Output 04/28/18 04/29/18 04/29/18 23:59 07:59 15:59 Intake Total 1000 / 1000 Output Total 600 / 600 1000 / 1000 Balance -600 / -600 0 / 0 Intake: IV Fluids 1000 / 1000 0.9 % Sodium Chloride 1,000 ML 1000 / 1000 @ 75 mls/hr IVC .[id number] [facility] Rx #:[id number] Output: Urine 600 / 600 1000 / 1000 Other: # Voids 200 Weight 59.3 kg Patient Weight 04/29/18 23:59 Weight 59.3 kg - General Appearance General appearance: Present: well-developed, well-nourished, appears started age EENT: Present: ATNC, PERRL Neck: Present: supple Respiratory: Present: clear Cardiology: Present: regular rate, normal S1, normal S2 Gastrointestinal: Present: normoactive bowel sounds, no tenderness, no guarding Integumentary: Present: warm and dry Neurologic: Present: no focal deficit, alert and oriented x3 Musculoskeletal: Present: no deformities, no erythema, no clubbing Psychiatric: Present: mood/affect appropriate, cooperative - Lab 04/29/18 04:46 04/29/18 04:46 Most recent lab results Calcium 8.1 mg/dL (8.6-10.3) L 04/29/18 04:46 Magnesium 1.7 mg/dL (1.6-2.6) 04/29/18 04:46 Urine Sodium 51.9 mEq/L 04/29/18 05:12 Consult Discharge Plan - Plan Referrals: Mario Colon MD [Family Provider] - Aidan Barrera MD [Primary Care Provider] -
[2018-04-29] MEDS ORDERED: *HR* Warfarin 3 MG TABLET PO ONE (18:00)
[2018-04-30 05:03] LABS: Basophils # 0.2 K/mcL (0.0-0.2); Basophils % 3.8 %; Eosinophils # 0.3 K/mcL (0.0-0.6); Eosinophils % 7.1 %; Hematocrit 36.8 % (35.3-44.9); Hemoglobin 12.4 g/dL (11.5-15.4); INR 1.8; Immature Granulocytes % 0.5 % (0-4); Lymphocytes # 0.6 K/mcL (0.6-4.6); Lymphocytes % 15.2 %; Mean Corpuscular HGB Conc 33.7 g/dL (31.6-35.5); Mean Corpuscular Hemoglobin 27.5 pg (28.0-33.3); Mean Corpuscular Volume 81.6 fL (83.0-100.0); Mean Platelet Volume 9.4 fL (9.4-12.4); Monocytes # 0.8 K/mcL (0.0-1.3); Neutrophils # 2.3 K/mcL (1.6-8.9); Platelet Count 198 K/mcL (140-400); Red Blood Count 4.51 M/mcL (3.82-4.97); Red Cell Distribution Width 15.8 % (11.5-14.5); Segmented Neutrophils % 54.4 %
[2018-04-30 05:16] LABS: BUN/Creatinine Ratio 20 (6-26); Blood Urea Nitrogen 9 mg/dL (8-23); Calcium 8.2 mg/dL (8.6-10.3); Carbon Dioxide 26 mEq/L (23-29); Chloride 100 mEq/L (98-107); Glucose 100 mg/dL (70-105); Osmolality,Calculated 271 (280-300); Potassium 3.8 mEq/L (3.5-5.1); Sodium 131 mEq/L (136-145); eGFR For Non-African Americans > 60 (> 60)
[2018-04-30 05:23] LABS: Platelet Estimate Normal (Normal); Reactive Lymphocytes Present (Not Present)
[2018-04-30] MEDS: 0.9 % Sodium Chloride 1,000 ML IVC SCH (05:29)
[2018-04-30 07:04] VITALS: BP 119/57
[2018-04-30] MEDS: Aspirin Enteric Coated 81 MG Tablet PO SCH (08:01)
--- NOTE | 2018-04-30 09:07 | Discharge Summary ---
<Maxi Yin - Last Filed: 04/30/18 10:59> - NOTES TO OUTPATIENT PROVIDER Notes to Outpatient Provider: Instructed patient to decrease her Lasix dose by half to 20 mg daily and start this Tuesday. Will have her obtain a BMP next week prior to next PCP appointment. Discontinued her Toprol given that her heart rate was in the 50s Orders not resulted at time of discharge: Pending orders 04/29/18 04:46 ACTH AM 0400 Date of Encounter: 04/30/18 Time of Encounter: 09:04 - Discharge Diagnosis (1) Hyponatremia Priority: Primary Status: Acute (2) Mild bibasilar atelectasis Priority: Secondary Status: Acute (3) Hypertension Priority: Secondary Status: Chronic Qualifiers: Hypertension type: essential hypertension Qualified Code(s): I10 - Essential (primary) hypertension (4) Atrial fibrillation Priority: Secondary Status: Chronic Qualifiers: Atrial fibrillation type: chronic Qualified Code(s): I48.2 - Chronic atrial fibrillation (5) DVT prophylaxis Priority: Secondary Status: Acute Hospital course: Ms. Pierce is a 87 year old female with history of hypertension, lymphoma, afib , and dvt. The patient had recent admission for hyponatremia and HF. She presented with sodium of 117 and Nephrology was consulted and did not recommend hypertonic saline. She was hypovolemic on exam and was taking Lasix 40 mg at home and this was thought to be the reason for her hyponatremia as her urine sodium was > 20. She was started on NS fluids and her sodium did increase each day and is up to 131 today. She was making adequate urine output and her creatinine was near baseline throughout. She had no complaints on day of discharge and has be instructed to decrease her Lasix dose by half to 20 mg daily and start this Tuesday. Will have her obtain a BMP next week prior to next PCP appointment. Discontinued her Toprol given that her heart rate was in the 50s. Discharge discussed with: patient, nurse - Time Spent with Patient Total time spent providing and/or coordinating discharge services: Greater than 30 minutes - Discharge Medications Prescriptions: Furosemide [Lasix] 20 mg PO DAILY #30 tablet Home Medications: Aspirin Enteric Coated [Aspirin EC] 81 mg PO DAILY 03/11/17 [History] Warfarin Sodium 5 mg PO SUMOWEFR 06/15/17 [History] Warfarin [Coumadin] 2.5 mg PO TUTHSA 06/15/17 [History] Enoxaparin [Lovenox] 60 mg SQ Q12HR #10 syr 04/25/18 [Rx] Lisinopril 10 mg PO DAILY #30 tablet 04/25/18 [Rx] Lenalidomide [Revlimid] 15 mg PO DAILY 04/28/18 [History] Furosemide [Lasix] 20 mg PO DAILY #30 tablet 04/30/18 [Rx] Allergies/Adverse Reactions: 3 Allergy/AdvReac Type Severity Reaction Status Date / Time rivaroxaban [From Xarelto] Allergy Hallucinati Verified 04/27/18 13:19 ng Tetanus Vaccines and Toxoid Allergy Hives Verified 04/27/18 13:19 [Tetanus Vaccines & Toxoid] alprazolam [From Xanax] AdvReac Hallucinati Verified 04/27/18 13:19 ng apixaban [From Eliquis] AdvReac Hallucinati Verified 04/27/18 13:19 ng codeine AdvReac Nausea Verified 04/27/18 13:19 Date of admission: 04/28/18 13:55 Primary care physician: Aidan Barrera MD Discharging clinician: Maxi Yin Anticipated date of discharge: 04/30/18 - Constitutional Vitals: Temp Pulse Resp BP Pulse Ox 97.5 F L 56 15 119/57 97 04/30/18 07:02 04/30/18 07:02 04/30/18 07:02 04/30/18 07:02 04/30/18 07:02 General appearance: Present: cooperative, pleasant, no acute distress, answers questions appropriately - Head Head exam: Present: atraumatic, normocephalic - Eye Eye exam: Present: PERRL, conjuntiva pink, sclera anicteric - Neck Neck exam general surgery: Present: supple, trachea midline. Absent: lymphadenopathy - Respiratory Respiratory exam: Present: CTAB. Absent: accessory muscle use, rales, rhonchi, wheezes - Cardiovascular Cardiovascular exam: Present: bradycardia, +S1, +S2. Absent: diastolic murmur, gallop, rubs, systolic murmur - GI/Abdominal GI/Abdominal exam: Present: normal bowel sounds, soft, no peritoneal signs. Absent: distended, tenderness - Extremities Exam Extremities exam: Present: warm, radial pulses palpable and symmetrical. Absent : calf tenderness, cyanotic, pedal edema - Neurological Exam Neurological exam: Present: alert, no focal deficits. Absent: facial droop, speech deficit - Skin Skin exam: Present: dry, intact - Patient Status Disposition: Home, Self-Care Condition: Good Functional capacity at discharge: uses cane/walker Overall status at discharge: patient is progressing back to baseline - Discharge Instructions Instructions: Furosemide (By mouth), Hyponatremia (GEN) Follow Up With: Mario Colon MD [Family Provider] - Aidan Barrera MD [Primary Care Provider] - Forms: ED Satisfaction Letter, Work/School Release - Diet and Activity Activity: increase activity as tolerated Diet: advance to your usual diet <Azul Pittman - Last Filed: 04/30/18 15:09> Orders not resulted at time of discharge: Pending orders 04/29/18 04:46 ACTH AM 0400 Date of Encounter: 04/30/18 - Discharge Diagnosis (1) Hypertension Status: Chronic Qualifiers: Hypertension type: essential hypertension Qualified Code(s): I10 - Essential (primary) hypertension (2) Atrial fibrillation Status: Chronic Qualifiers: Atrial fibrillation type: chronic Qualified Code(s): I48.2 - Chronic atrial fibrillation (3) Hyponatremia Status: Acute (4) Mild bibasilar atelectasis Status: Acute (5) Nausea & vomiting Status: Acute Qualifiers: Vomiting type: unspecified Vomiting Intractability: intractable Qualified Code(s): R11.2 - Nausea with vomiting, unspecified Hospital course: Ms. Pierce is a 87 year old female - Time Spent with Patient Total time spent providing and/or coordinating discharge services: Date of admission: 04/28/18 13:55 Primary care physician: Aidan Barrera MD - Constitutional Vitals: Temp Pulse Resp BP Pulse Ox 97.5 F L 56 15 119/57 97 04/30/18 07:02 04/30/18 07:02 04/30/18 07:02 04/30/18 07:02 04/30/18 07:02 - Attending Attestation I examined this patient and my medical decision-making was reviewed with the Resident Physician Dr. Yin. I agree with the documented findings, disposition and treatment plan as described except to the extent set forth below. Ms. 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 She was in severe hypoantremia. Today she is alert, awake and O x 3. Denied any CP / SOB. Gen: A, A, O x3 Chest: Diminished BS b/l heart: S1S2+ RRR No murmurs Abd: Soft NT a.p 1. Acute hyponatremia due to dehydration hypovolemic Improved today Na @ 131 baseline recommend to take Lasix at low dose only 20mg daily ( as needed ) Talked to the pt and her daughter about these instructions. Medically stable to d/c home today
[2018-04-30] MEDS ORDERED: *HR* Warfarin 5 MG TABLET PO ONE (18:00)
--- NOTE | 2018-05-14 11:16 | Emergency Department Note ---
Disposition Clinical Impression: Generalized weakness, Hyponatremia Disposition: Admitted As Inpatient Condition: Good General Adult HPI - General Chief complaint: ED Abdominal Pain Stated complaint: Vomiting, General Malaise Time Seen by Provider: 04/27/18 13:37 Source: patient, family Limitations: no limitations - History of Present Illness HPI Narrative: Unfortunately there was a problem with the technology system. My note never ended up with in the computer. This is a representation of my note the best that I can remember along with help from the internal medicine history and physical. Date of evaluation was 04/27/18. 87-year-old female presenting for evaluation of nausea vomiting and generalized weakness. Symptoms progressively worsened nature. Laboratory, urinalysis and CT evaluation were performed. Pain Scale: 0 - Related Data Home Medications Medication Instructions Recorded Confirmed Aspirin Enteric Coated [Aspirin EC] 81 mg PO DAILY 03/11/17 04/27/18 Warfarin Sodium 5 mg PO SUMOWEFR 06/15/17 04/27/18 Warfarin [Coumadin] 2.5 mg PO TUTHSA 06/15/17 04/27/18 Lenalidomide [Revlimid] 15 mg PO DAILY 04/28/18 04/28/18 Previous Rx's Medication Instructions Recorded Enoxaparin [Lovenox] 60 mg SQ Q12HR #10 syr 04/25/18 Lisinopril 10 mg PO DAILY #30 tablet 04/25/18 Furosemide [Lasix] 20 mg PO DAILY #30 tablet 04/30/18 Allergies Allergy/AdvReac Type Severity Reaction Status Date / Time rivaroxaban [From Xarelto] Allergy Hallucinati Verified 04/27/18 13:19 ng Tetanus Vaccines and Toxoid Allergy Hives Verified 04/27/18 13:19 [Tetanus Vaccines & Toxoid] alprazolam [From Xanax] AdvReac Hallucinati Verified 04/27/18 13:19 ng apixaban [From Eliquis] AdvReac Hallucinati Verified 04/27/18 13:19 ng codeine AdvReac Nausea Verified 04/27/18 13:19 Review of Systems: As Per HPI Gastrointestinal: Reports: nausea, vomiting Neurological: Reports: weakness Past Medical History - Past Medical History Medical history: Reports: atrial fibrillation, cancer, CHF, DVT, hypertension, other Surgical history: Reports: breast surgery, cancer surgery, herniorrhaphy, GLADIS/ BSO, other Psychiatric history: Reports: anxiety - Social History Smoking Status: Never smoker Smokeless Tobacco Status: No Alcohol use: Reports: none Drug use: Reports: none Physical Exam General appearance: NAD, conversant Eyes: anicteric sclerae, moist conjunctivae; no lid-lag; PERRL HENT: Atraumatic; oropharynx clear with moist mucous membranes Neck: Normal appearance; Trachea midline Chest: Symmetrical chest rise; No respiratory distress Extremities: No peripheral edema or extremity tenderness Skin: Normal temperature, turgor and texture; no rash, ulcers or subcutaneous nodules Psych: Appropriate mood and affect Neuro: Awake and alert - General Limitations: no limitations Course - Consultations Consultation #1: Nephrology consulted Consultation #2: Discussed with hospitalist and patient accepted for admission. Vital Signs Temperature 97.6 F 04/27/18 13:09 Pulse Rate 67 04/27/18 13:09 Respiratory Rate 16 04/27/18 13:09 Blood Pressure 148/77 04/27/18 13:09 O2 Sat by Pulse Oximetry 97 04/27/18 13:09 Temperature 97.5 F L 04/30/18 07:02 Pulse Rate 56 04/30/18 07:02 Respiratory Rate 15 04/30/18 07:02 Blood Pressure 119/57 04/30/18 07:02 O2 Sat by Pulse Oximetry 97 04/30/18 07:02 Oxygen Delivery Oxygen Delivery Room Air Medical Decision Making - Lab Data Result diagrams: 04/30/18 04:33 04/30/18 04:33 Lab Results 04/27/18 04/27/18 04/27/18 Range/Units 13:49 13:49 13:49 WBC 4.9 (4.3-11.1) K/mcL RBC 4.75 (3.82-4.97) M/mcL Hgb 12.9 (11.5-15.4) g/dL Hct 37.0 (35.3-44.9) % MCV 77.9 L (83.0-100.0) fL MCH 27.2 L (28.0-33.3) pg MCHC 34.9 (31.6-35.5) g/dL RDW 15.6 H (11.5-14.5) % Plt Count 225 (140-400) K/mcL MPV 9.3 L (9.4-12.4) fL Immature Gran % 0.6 (0-4) % Seg Neutrophils % 61.0 % Lymphocytes % 16.6 % Monocytes % 18.7 % Eosinophils % 0.8 % Basophils % 2.3 % Neutrophils # 3.0 (1.6-8.9) K/mcL Lymphocytes # 0.8 (0.6-4.6) K/mcL Monocytes # 0.9 (0.0-1.3) K/mcL Eosinophils # 0.0 (0.0-0.6) K/mcL Basophils # 0.1 (0.0-0.2) K/mcL Platelet Estimate Normal (Normal) Microcytosis (Not Present) PT (9.4-12.1) Seconds INR Sodium 117 L* (136-145) mEq/L Potassium 3.6 (3.5-5.1) mEq/L Chloride 82 L (98-107) mEq/L Carbon Dioxide 23 (23-29) mEq/L BUN 15 (8-23) mg/dL Creatinine 0.58 L (0.60-1.20) mg/dL Est GFR ( Amer) > 60 (> 60) Est GFR (Non-Af Amer) > 60 (> 60) BUN/Creatinine Ratio 26 (6-26) Glucose 179 H (70-105) mg/dL Calculated Osmolality 249 L (280-300) Calcium 8.6 (8.6-10.3) mg/dL Total Bilirubin 1.3 H (0.3-1.0) mg/dL Direct Bilirubin 0.3 H (0.0-0.2) mg/dL Indirect Bilirubin 1.0 (0.0-1.2) mg/dL AST 19 (13-39) Units/L ALT 23 (7-52) Units/L Alkaline Phosphatase 66 (34-104) Units/L Troponin I < 0.03 (< 0.04) ng/mL B-Natriuretic Peptide 197 H (Less than 100) pg/mL Serum Total Protein 6.2 L (6.4-8.9) g/dL Albumin 3.8 (3.5-5.7) g/dL Globulin 2.4 (2.4-3.5) g/dL Albumin/Globulin Ratio 1.6 (1.1-2.2) Lipase 32 (11-82) Units/L TSH (0.340-5.600) mcIU/mL Urine Color (Yellow) Urine Clarity (Clear) Urine pH (5.0-8.0) pH Units Ur Specific [place] (1.010-1.025) Urine Protein (Neg-Trace) mg/dL Urine Glucose (UA) (Normal) mg/dL Urine Ketones (Negative) mg/dL Urine Blood (Negative) Urine Nitrite (Negative) Urine Bilirubin (Negative) Urine Urobilinogen (Normal) mg/dL Ur Leukocyte Esterase (Negative) Urine Microscopic RBC (0-3) per hpf Urine Microscopic WBC (0-3) per hpf Ur Squamous Epith Cells (None-Few) per lpf Urine Bacteria (None-Few) per hpf Hyaline Casts (None-Few) per lpf Ur Culture Indicated? (NO) Urine Osmolality (300-1090) mOsm/kg Urine Sodium mEq/L 04/27/18 04/27/18 04/27/18 Range/Units 14:07 15:24 15:24 WBC (4.3-11.1) K/mcL RBC (3.82-4.97) M/mcL Hgb (11.5-15.4) g/dL Hct (35.3-44.9) % MCV (83.0-100.0) fL MCH (28.0-33.3) pg MCHC (31.6-35.5) g/dL RDW (11.5-14.5) % Plt Count (140-400) K/mcL MPV (9.4-12.4) fL Immature Gran % (0-4) % Seg Neutrophils % % Lymphocytes % % Monocytes % % Eosinophils % % Basophils % % Neutrophils # (1.6-8.9) K/mcL Lymphocytes # (0.6-4.6) K/mcL Monocytes # (0.0-1.3) K/mcL Eosinophils # (0.0-0.6) K/mcL Basophils # (0.0-0.2) K/mcL Platelet Estimate (Normal) Microcytosis (Not Present) PT 20.6 H (9.4-12.1) Seconds INR 1.8 Sodium (136-145) mEq/L Potassium (3.5-5.1) mEq/L Chloride (98-107) mEq/L Carbon Dioxide (23-29) mEq/L BUN (8-23) mg/dL Creatinine (0.60-1.20) mg/dL Est GFR ( Amer) (> 60) Est GFR (Non-Af Amer) (> 60) BUN/Creatinine Ratio (6-26) Glucose (70-105) mg/dL Calculated Osmolality (280-300) Calcium (8.6-10.3) mg/dL Total Bilirubin (0.3-1.0) mg/dL Direct Bilirubin (0.0-0.2) mg/dL Indirect Bilirubin (0.0-1.2) mg/dL AST (13-39) Units/L ALT (7-52) Units/L Alkaline Phosphatase (34-104) Units/L Troponin I (< 0.04) ng/mL B-Natriuretic Peptide (Less than 100) pg/mL Serum Total Protein (6.4-8.9) g/dL Albumin (3.5-5.7) g/dL Globulin (2.4-3.5) g/dL Albumin/Globulin Ratio (1.1-2.2) Lipase (11-82) Units/L TSH (0.340-5.600) mcIU/mL Urine Color Yellow (Yellow) Urine Clarity Clear (Clear) Urine pH 7.0 (5.0-8.0) pH Units Ur Specific [place] 1.013 (1.010-1.025) Urine Protein Negative (Neg-Trace) mg/dL Urine Glucose (UA) Normal (Normal) mg/dL Urine Ketones Negative (Negative) mg/dL Urine Blood Small H (Negative) Urine Nitrite Negative (Negative) Urine Bilirubin Negative (Negative) Urine Urobilinogen Normal (Normal) mg/dL Ur Leukocyte Esterase Negative (Negative) Urine Microscopic RBC 3-5 H (0-3) per hpf Urine Microscopic WBC 0-3 (0-3) per hpf Ur Squamous Epith Cells Many H (None-Few) per lpf Urine Bacteria None Seen (None-Few) per hpf Hyaline Casts None Seen (None-Few) per lpf Ur Culture Indicated? NO (NO) Urine Osmolality (300-1090) mOsm/kg Urine Sodium 47.2 mEq/L 04/27/18 04/27/18 04/27/18 Range/Units 15:24 17:00 22:40 WBC (4.3-11.1) K/mcL RBC (3.82-4.97) M/mcL Hgb (11.5-15.4) g/dL Hct (35.3-44.9) % MCV (83.0-100.0) fL MCH (28.0-33.3) pg MCHC (31.6-35.5) g/dL RDW (11.5-14.5) % Plt Count (140-400) K/mcL MPV (9.4-12.4) fL Immature Gran % (0-4) % Seg Neutrophils % % Lymphocytes % % Monocytes % % Eosinophils % % Basophils % % Neutrophils # (1.6-8.9) K/mcL Lymphocytes # (0.6-4.6) K/mcL Monocytes # (0.0-1.3) K/mcL Eosinophils # (0.0-0.6) K/mcL Basophils # (0.0-0.2) K/mcL Platelet Estimate (Normal) Microcytosis (Not Present) PT (9.4-12.1) Seconds INR Sodium 120 L* 120 L* (136-145) mEq/L Potassium 3.5 3.6 (3.5-5.1) mEq/L Chloride 84 L 89 L (98-107) mEq/L Carbon Dioxide 25 26 (23-29) mEq/L BUN 13 11 (8-23) mg/dL Creatinine 0.52 L 0.49 L (0.60-1.20) mg/dL Est GFR ( Amer) > 60 > 60 (> 60) Est GFR (Non-Af Amer) > 60 > 60 (> 60) BUN/Creatinine Ratio 25 22 (6-26) Glucose 148 H 127 H (70-105) mg/dL Calculated Osmolality 253 L 251 L (280-300) Calcium 8.4 L 8.1 L (8.6-10.3) mg/dL Total Bilirubin (0.3-1.0) mg/dL Direct Bilirubin (0.0-0.2) mg/dL Indirect Bilirubin (0.0-1.2) mg/dL AST (13-39) Units/L ALT (7-52) Units/L Alkaline Phosphatase (34-104) Units/L Troponin I (< 0.04) ng/mL B-Natriuretic Peptide (Less than 100) pg/mL Serum Total Protein (6.4-8.9) g/dL Albumin (3.5-5.7) g/dL Globulin (2.4-3.5) g/dL Albumin/Globulin Ratio (1.1-2.2) Lipase (11-82) Units/L TSH 2.875 (0.340-5.600) mcIU/mL Urine Color (Yellow) Urine Clarity (Clear) Urine pH (5.0-8.0) pH Units Ur Specific [place] (1.010-1.025) Urine Protein (Neg-Trace) mg/dL Urine Glucose (UA) (Normal) mg/dL Urine Ketones (Negative) mg/dL Urine Blood (Negative) Urine Nitrite (Negative) Urine Bilirubin (Negative) Urine Urobilinogen (Normal) mg/dL Ur Leukocyte Esterase (Negative) Urine Microscopic RBC (0-3) per hpf Urine Microscopic WBC (0-3) per hpf Ur Squamous Epith Cells (None-Few) per lpf Urine Bacteria (None-Few) per hpf Hyaline Casts (None-Few) per lpf Ur Culture Indicated? (NO) Urine Osmolality 247 L (300-1090) mOsm/kg Urine Sodium mEq/L 04/28/18 04/28/18 04/28/18 Range/Units 05:40 05:40 05:40 WBC 3.6 L (4.3-11.1) K/mcL RBC 4.49 (3.82-4.97) M/mcL Hgb 12.4 (11.5-15.4) g/dL Hct 35.7 (35.3-44.9) % MCV 79.5 L (83.0-100.0) fL MCH 27.6 L (28.0-33.3) pg MCHC 34.7 (31.6-35.5) g/dL RDW 15.6 H (11.5-14.5) % Plt Count 207 (140-400) K/mcL MPV 9.0 L (9.4-12.4) fL Immature Gran % 0.6 (0-4) % Seg Neutrophils % 56.3 % Lymphocytes % 13.5 % Monocytes % 25.1 % Eosinophils % 1.7 % Basophils % 2.8 % Neutrophils # 2.0 (1.6-8.9) K/mcL Lymphocytes # 0.5 L (0.6-4.6) K/mcL Monocytes # 0.9 (0.0-1.3) K/mcL Eosinophils # 0.1 (0.0-0.6) K/mcL Basophils # 0.1 (0.0-0.2) K/mcL Platelet Estimate Normal (Normal) Microcytosis Present A (Not Present) PT 25.5 H (9.4-12.1) Seconds INR 2.3 Sodium 126 L (136-145) mEq/L Potassium 3.6 (3.5-5.1) mEq/L Chloride 94 L (98-107) mEq/L Carbon Dioxide 25 (23-29) mEq/L BUN 9 (8-23) mg/dL Creatinine 0.49 L (0.60-1.20) mg/dL Est GFR ( Amer) > 60 (> 60) Est GFR (Non-Af Amer) > 60 (> 60) BUN/Creatinine Ratio 18 (6-26) Glucose 110 H (70-105) mg/dL Calculated Osmolality 261 L (280-300) Calcium 8.0 L (8.6-10.3) mg/dL Total Bilirubin (0.3-1.0) mg/dL Direct Bilirubin (0.0-0.2) mg/dL Indirect Bilirubin (0.0-1.2) mg/dL AST (13-39) Units/L ALT (7-52) Units/L Alkaline Phosphatase (34-104) Units/L Troponin I (< 0.04) ng/mL B-Natriuretic Peptide (Less than 100) pg/mL Serum Total Protein (6.4-8.9) g/dL Albumin (3.5-5.7) g/dL Globulin (2.4-3.5) g/dL Albumin/Globulin Ratio (1.1-2.2) Lipase (11-82) Units/L TSH (0.340-5.600) mcIU/mL Urine Color (Yellow) Urine Clarity (Clear) Urine pH (5.0-8.0) pH Units Ur Specific [place] (1.010-1.025) Urine Protein (Neg-Trace) mg/dL Urine Glucose (UA) (Normal) mg/dL Urine Ketones (Negative) mg/dL Urine Blood (Negative) Urine Nitrite (Negative) Urine Bilirubin (Negative) Urine Urobilinogen (Normal) mg/dL Ur Leukocyte Esterase (Negative) Urine Microscopic RBC (0-3) per hpf Urine Microscopic WBC (0-3) per hpf Ur Squamous Epith Cells (None-Few) per lpf Urine Bacteria (None-Few) per hpf Hyaline Casts (None-Few) per lpf Ur Culture Indicated? (NO) Urine Osmolality (300-1090) mOsm/kg Urine Sodium mEq/L 04/28/18 Range/Units 10:44 WBC (4.3-11.1) K/mcL RBC (3.82-4.97) M/mcL Hgb (11.5-15.4) g/dL Hct (35.3-44.9) % MCV (83.0-100.0) fL MCH (28.0-33.3) pg MCHC (31.6-35.5) g/dL RDW (11.5-14.5) % Plt Count (140-400) K/mcL MPV (9.4-12.4) fL Immature Gran % (0-4) % Seg Neutrophils % % Lymphocytes % % Monocytes % % Eosinophils % % Basophils % % Neutrophils # (1.6-8.9) K/mcL Lymphocytes # (0.6-4.6) K/mcL Monocytes # (0.0-1.3) K/mcL Eosinophils # (0.0-0.6) K/mcL Basophils # (0.0-0.2) K/mcL Platelet Estimate (Normal) Microcytosis (Not Present) PT (9.4-12.1) Seconds INR Sodium 126 L (136-145) mEq/L Potassium (3.5-5.1) mEq/L Chloride (98-107) mEq/L Carbon Dioxide (23-29) mEq/L BUN (8-23) mg/dL Creatinine (0.60-1.20) mg/dL Est GFR ( Amer) (> 60) Est GFR (Non-Af Amer) (> 60) BUN/Creatinine Ratio (6-26) Glucose (70-105) mg/dL Calculated Osmolality (280-300) Calcium (8.6-10.3) mg/dL Total Bilirubin (0.3-1.0) mg/dL Direct Bilirubin (0.0-0.2) mg/dL Indirect Bilirubin (0.0-1.2) mg/dL AST (13-39) Units/L ALT (7-52) Units/L Alkaline Phosphatase (34-104) Units/L Troponin I (< 0.04) ng/mL B-Natriuretic Peptide (Less than 100) pg/mL Serum Total Protein (6.4-8.9) g/dL Albumin (3.5-5.7) g/dL Globulin (2.4-3.5) g/dL Albumin/Globulin Ratio (1.1-2.2) Lipase (11-82) Units/L TSH (0.340-5.600) mcIU/mL Urine Color (Yellow) Urine Clarity (Clear) Urine pH (5.0-8.0) pH Units Ur Specific [place] (1.010-1.025) Urine Protein (Neg-Trace) mg/dL Urine Glucose (UA) (Normal) mg/dL Urine Ketones (Negative) mg/dL Urine Blood (Negative) Urine Nitrite (Negative) Urine Bilirubin (Negative) Urine Urobilinogen (Normal) mg/dL Ur Leukocyte Esterase (Negative) Urine Microscopic RBC (0-3) per hpf Urine Microscopic WBC (0-3) per hpf Ur Squamous Epith Cells (None-Few) per lpf Urine Bacteria (None-Few) per hpf Hyaline Casts (None-Few) per lpf Ur Culture Indicated? (NO) Urine Osmolality (300-1090) mOsm/kg Urine Sodium mEq/L
== END 2018-04-30 11:27 | disposition home or self-care (01) | DRG 641 ==
LOC: 2ANU 13:06 → EMEROO 13:06 → 2ANU 18:05
PROVIDERS: ADMIT Internal Medicine Cardiovascular Disease; ATTEND Internal Medicine Cardiovascular Disease